=== PATIENT | female | born 1965 | race Caucasian/White ===

== ENCOUNTER → 2018-01-11 07:51 | Outpatient (CLI) | payer BC, SELFPAY | PROVIDERS: Family Provider Family Medicine; PCP Family Medicine | DX: I35.1 Nonrheumatic aortic (valve) insufficiency (principal) | CPT/HCPCS: 93306 ==

== ENCOUNTER → 2018-03-31 08:34 | Outpatient (CLI) | payer BC, SELFPAY ==
[2018-03-31 12:03] LABS: Absolute Lymphocyte Count 3.02 X10^3/ul (0.83-4.51); Absolute Neutrophil Count 2.5 X10^3/uL (2.0-7.7); Basophil# 0.03 X10^3/uL; Basophil% 0.5 % (0-1); Eosinophil# 0.06 X10^3/uL; Hematocrit 37.9 % (37-47); Hemoglobin 12.3 g/dl (12.0-15.0); Lymphocyte # 3.02 X10^3/ul (4.0); Lymphocyte % 50.2 % (19-41); Mean Corp Hgb Conc 32.5 g/gl (32-36); Mean Corpuscular Hgb 29.4 pg (27.0-32.0); Mean Corpuscular Volume 90.7 fL (81-99); Monocyte# 0.45 X10^3/uL; Monocyte% 7.5 % (0-10); Neutrophil # 2.45 X10^3/uL (2.7-7.7); Neutrophil % 40.8 % (47-70); Platelet Count 309 K/mm3 (150-450); RBC Distribution Width CV 13.3 % (11.6-14.6); RBC Distribution Width SD 43.9 fl (35.1-43.9); Red Blood Count 4.18 M/mm3 (4.2-5.4)
[2018-03-31 12:04] LABS: POSITIVE COUNT NO; POSITIVE DIFFERENTIAL NO; POSITIVE MORPHOLOGY NO
[2018-03-31 12:47] LABS: Vitamin B12 337 pg/mL (211-911); Vitamin D,25 Hydroxy 65.7 ng/mL (29.95-100.01)
[2018-03-31 13:04] LABS: ALB/GLOB Ratio 1.1 RATIO (0.9-2.4); AST(SGOT) 18 U/L (15-37); Alanine Aminotransfer ALT/SGPT 30 U/L (13-56); Albumin, Serum 3.8 g/dL (3.2-5.0); Alkaline Phosphatase 59 U/L (45-117); Anion Gap 9 (5-15); BUN 13 mg/dL (7-18); BUN/Creat Ratio 16.2 RATIO (10-20); Calcium,Total 8.8 mg/dL (8.5-10.1); Chloride 106 mmol/L (98-107); EST Glomerular Filtration Rate 80 mL/min (>60); Est Glom Filt Rate - Afr Amer 97 mL/min (>60); Globulin 3.5 g/dL (2.2-4.2); Glucose 89 mg/dL (74-106); Protein, Total 7.3 g/dL (6.4-8.2); Sodium Level 142 mmol/L (136-145); T4 Free Direct 1.05 ng/dL (0.76-1.46); Thyroid Stim Hormone (TSH) 0.84 uIU/mL (0.358-3.74)
== END ==
PROVIDERS: Family Provider Family Medicine; PCP Family Medicine; Visit Provider Family Medicine
DX: R73.01 Impaired fasting glucose (principal); E55.9 Vitamin D deficiency, unspecified; E53.8 Deficiency of other specified B group vitamins; D35.2 Benign neoplasm of pituitary gland; E78.5 Hyperlipidemia, unspecified
CPT/HCPCS: 36415; 80053; 82306; 82607; 84439; 84443; 85025

== ENCOUNTER → 2018-08-19 08:15 | Outpatient (CLI) | payer BC, SELFPAY ==
[2018-08-19 12:04] LABS: Absolute Neutrophil Count 2.2 X10^3/uL (2.0-7.7); Basophil# 0.02 X10^3/uL; Basophil% 0.3 % (0-1); Eosinophil# 0.13 X10^3/uL; Eosinophils% 2.2 % (0-5); Hematocrit 37.9 % (37-47); Hemoglobin 12.3 g/dl (12.0-15.0); Lymphocyte % 50.8 % (19-41); Mean Corp Hgb Conc 32.5 g/gl (32-36); Mean Corpuscular Hgb 29.1 pg (27.0-32.0); Mean Corpuscular Volume 89.6 fL (81-99); Mean Platelet Vol. 10.3 fl (6.2-12.0); Monocyte% 8.5 % (0-10); Neutrophil # 2.24 X10^3/uL (2.7-7.7); Platelet Count 315 K/mm3 (150-450); RBC Distribution Width CV 13.2 % (11.6-14.6); RBC Distribution Width SD 42.5 fl (35.1-43.9); Red Blood Count 4.23 M/mm3 (4.2-5.4); White Blood Count 5.9 K/mm3 (4.4-11.0)
[2018-08-19 12:07] LABS: POSITIVE COUNT NO; POSITIVE DIFFERENTIAL NO; POSITIVE MORPHOLOGY NO
[2018-08-19 12:27] LABS: ALB/GLOB Ratio 1.3 RATIO (0.9-2.4); AST(SGOT) 26 U/L (15-37); Alanine Aminotransfer ALT/SGPT 51 U/L (13-56); Albumin, Serum 3.9 g/dL (3.2-5.0); Alkaline Phosphatase 56 U/L (45-117); Anion Gap 6 (5-15); BUN 12 mg/dL (7-18); BUN/Creat Ratio 16.6 RATIO (10-20); Calcium,Total 8.7 mg/dL (8.5-10.1); Chloride 109 mmol/L (98-107); Cholesterol 182 mg/dL (200); Creatinine, Serum 0.72 mg/dL (0.55-1.02); EST Glomerular Filtration Rate 90 mL/min (>60); Est Glom Filt Rate - Afr Amer 109 mL/min (>60); Globulin 3.1 g/dL (2.2-4.2); Glucose 95 mg/dL (74-106); High Density Lipoprotein 57 mg/dL; Potassium 3.8 mmol/L (3.5-5.1); Sodium Level 142 mmol/L (136-145); Thyroid Stim Hormone (TSH) 0.03 uIU/mL (0.358-3.74); Triglycerides 214 mg/dL; Very Low Density Lipoprotein 43 mg/dL (5-40)
[2018-08-19 13:15] LABS: Vitamin B12 821 pg/mL (211-911); Vitamin D,25 Hydroxy 36.3 ng/mL (29.95-100.01)
== END ==
LOC: LAB.FUTURE 08:17 → BFHLAB 04-22 15:20
PROVIDERS: Family Provider Family Medicine; PCP Family Medicine; Visit Provider Family Medicine
DX: E03.9 Hypothyroidism, unspecified (principal); E55.9 Vitamin D deficiency, unspecified; I10 Essential (primary) hypertension
CPT/HCPCS: 36415; 80053; 80061; 82306; 82607; 84439; 84443; 85025

== ENCOUNTER → 2018-10-01 11:42 | Outpatient (CLI) | payer BC, SELFPAY ==
[2018-10-04 12:58] LABS: Rubeola IgG Ab < 25.0 AU/mL (Immune >29.9)
== END ==
LOC: LAB.FUTURE 11:44 → BFHLAB 04-22 15:19
PROVIDERS: Family Provider Family Medicine; PCP Family Medicine; Visit Provider Family Medicine
DX: E03.9 Hypothyroidism, unspecified (principal); Z11.59 Encounter for screening for other viral diseases
CPT/HCPCS: 36415; 84443; 86765

== ENCOUNTER → 2018-11-17 | Outpatient (CLI) | payer BC, SELFPAY ==
--- NOTE | 2018-11-17 15:24 | BI_ITS ---
MAMMOGRAPHY - BILATERAL SCREENING REASON FOR EXAM: Female, 53 years old. Routine annual screening examination. PERTINENT HISTORY: Non-contributory. TECHNIQUE: Digital bilateral breast thom (3D mammographic acquisition) in the CC and MLO projections. 2-D mediolateral oblique (MLO) and craniocaudad (CC) views of both breasts were obtained. CAD: Full Field Digital Mammography with Computer Added Detection was performed. COMPARISON: Comparison is made with prior study dated November 21, 2016 and September 27, 2014. FINDINGS: Breast Composition: There are scattered areas of fibroglandular density. There are no dominant masses or suspicious calcifications. Stable small bilateral axillary lymph nodes. No other significant abnormalities are identified. There has been no significant change since the prior study. BI/SCREEN MAMM (CAD) W/THOM BILAT IMPRESSION: Stable bilateral screening mammogram. Yearly follow-up mammogram recommended. (A) ASSESSMENT CATEGORY: BIRADS Category 1: Negative. A letter regarding these results will be sent to the patient by the facility within 30 days. Approximately 10% of breast cancers are not detected by mammography. A normal mammogram should not delay biopsy of a clinically suspicious abnormality. [id number] Electronically Signed: Eder Stovall, at 8:38 EDT , Service support ,
== END | disposition home or self-care (01) ==
LOC: OPBI 15:19
PROVIDERS: Family Provider Family Medicine; PCP Family Medicine; Referring Provider Family Medicine; Visit Provider Family Medicine
DX: Z12.31 Encounter for screening mammogram for malignant neoplasm of breast (principal)
CPT/HCPCS: 77063; 77067

== ENCOUNTER → 2019-04-22 15:09 | Outpatient (CLI) | payer BC, SELFPAY ==
[2019-04-22 17:19] LABS: Absolute Lymphocyte Count 3.09 X10^3/uL (0.83-4.51); Absolute Neutrophil Count 2.4 X10^3/uL (2.0-7.7); Basophil# 0.04 X10^3/uL; Basophil% 0.7 % (0-1); Eosinophils% 1.6 % (0-5); Hematocrit 37.1 % (37-47); Hemoglobin 11.9 g/dL (12.0-15.0); Lymphocyte # 3.09 X10^3/ul (4.0); Lymphocyte % 50.6 % (19-41); Mean Corp Hgb Conc 32.1 g/dL (32-36); Mean Corpuscular Hgb 28.7 pg (27.0-32.0); Mean Corpuscular Volume 89.4 fL (81-99); Mean Platelet Vol. 10.4 fl (6.2-12.0); Monocyte# 0.52 X10^3/uL; Monocyte% 8.5 % (0-10); NRBC Flagged by Analyzer 0 % (0-5); Neutrophil # 2.35 X10^3/uL (2.7-7.7); Neutrophil % 38.4 % (47-70); Platelet Count 337 K/mm3 (150-450); RBC Distribution Width CV 13.2 % (11.6-14.6); RBC Distribution Width SD 43.3 fl (35.1-43.9); Red Blood Count 4.15 M/mm3 (4.2-5.4); White Blood Count 6.1 K/mm3 (4.4-11.0)
[2019-04-22 17:43] LABS: Vitamin B12 389 pg/mL (211-911); Vitamin D,25 Hydroxy 23.6 ng/mL (29.95-100.01)
[2019-04-22 17:49] LABS: ALB/GLOB Ratio 1.3 RATIO (0.9-2.4); AST(SGOT) 29 U/L (15-37); Alanine Aminotransfer ALT/SGPT 54 U/L (13-56); Albumin, Serum 4.3 g/dL (3.2-5.0); Alkaline Phosphatase 60 U/L (45-117); Anion Gap 7 (5-15); BUN 12 mg/dL (7-18); BUN/Creat Ratio 15.4 RATIO (10-20); Chloride 107 mmol/L (98-107); Creatinine, Serum 0.78 mg/dL (0.55-1.02); EST Glomerular Filtration Rate 83 mL/min (>60); Est Glom Filt Rate - Afr Amer 100 mL/min (>60); Globulin 3.3 g/dL (2.2-4.2); Glucose 91 mg/dL (74-106); Potassium 3.7 mmol/L (3.5-5.1); Protein, Total 7.6 g/dL (6.4-8.2); Sodium Level 141 mmol/L (136-145); T4 Free Direct 1.25 ng/dL (0.76-1.46); Thyroid Stim Hormone (TSH) 0.07 uIU/mL (0.358-3.74)
== END ==
LOC: LAB.FUTURE 15:10 → BFHLAB 15:19
PROVIDERS: Family Provider Family Medicine; PCP Family Medicine; Visit Provider Family Medicine
DX: E55.9 Vitamin D deficiency, unspecified (principal); E03.9 Hypothyroidism, unspecified; E53.8 Deficiency of other specified B group vitamins; E78.5 Hyperlipidemia, unspecified
CPT/HCPCS: 36415; 80053; 82306; 82607; 84439; 84443; 85025

== ENCOUNTER → 2019-06-20 10:22 | Outpatient (CLI) | payer OTHER, SELFPAY ==
[2019-06-20 12:56] LABS: Thyroid Stim Hormone (TSH) 0.09 uIU/mL (0.358-3.74)
== END ==
PROVIDERS: Family Provider Family Medicine; PCP Family Medicine; Visit Provider Family Medicine
DX: E03.9 Hypothyroidism, unspecified (principal); E55.9 Vitamin D deficiency, unspecified
CPT/HCPCS: 36415; 82306; 84443

== ENCOUNTER → 2019-11-01 10:36 | Outpatient (CLI) | payer OTHER, SELFPAY ==
[2019-11-01 13:02] LABS: T4 Free Direct 0.88 ng/dL (0.76-1.46); Thyroid Stim Hormone (TSH) 0.63 uIU/mL (0.358-3.74)
== END ==
PROVIDERS: PCP Family Medicine; Visit Provider Family Medicine
DX: E03.9 Hypothyroidism, unspecified (principal)
CPT/HCPCS: 84439; 84443

== ENCOUNTER → 2020-09-24 07:44 | Outpatient (CLI) | payer OTHER, SELFPAY ==
--- NOTE | 2020-09-24 07:47 | BI_ITS ---
MAMMOGRAPHY - BILATERAL SCREENING REASON FOR EXAM: Female, 55 years old. Routine annual screening examination. PERTINENT HISTORY: Non-contributory. TECHNIQUE: Digital bilateral breast thom (3D mammographic acquisition) in the CC and MLO projections. 2-D mediolateral oblique (MLO) and craniocaudad (CC) views of both breasts were obtained. CAD: Full Field Digital Mammography with Computer Added Detection was performed. COMPARISON: Comparison is made with prior examination dated 11/17/2018 and 06/23/2016. FINDINGS: Breast Composition: There are scattered areas of fibroglandular density. Possible 5 mm nodular density in the deep central medial portion of the left breast. Correlation with ultrasound is recommended. Stable small benign appearing bilateral axillary lymph nodes. No other significant abnormalities are identified. BI/SCRN MAMM (CAD)W/THOM BILAT IMPRESSION: Findings suggestive of a 5 mm nodular density in the deep central medial aspect of the left breast. Correlation with ultrasound is recommended. ASSESSMENT CATEGORY: BIRADS Category 0: Incomplete. Need additional imaging evaluation. A letter regarding these results will be sent to the patient by the facility within 30 days. Approximately 10% of breast cancers are not detected by mammography. A normal mammogram should not delay biopsy of a clinically suspicious abnormality. [id number] Electronically Signed: Eder Stovall MD at 9:16 EDT , Service support ,
== END ==
PROVIDERS: PCP Family Medicine; Referring Provider Family Medicine; Visit Provider Family Medicine
DX: Z12.31 Encounter for screening mammogram for malignant neoplasm of breast (principal)
CPT/HCPCS: 77063; 77067

== ENCOUNTER → 2020-09-26 07:43 | Outpatient (CLI) | payer OTHER, SELFPAY ==
--- NOTE | 2020-09-26 07:52 | US_ITS ---
STUDY: ULTRASOUND BREAST - LEFT REASON FOR EXAM: Female, 55 years old. Abnormal screening mammogram. TECHNIQUE: Axial and longitudinal images of the LEFT breast were performed with a high resolution ultrasound transducer. # OF IMAGES: 13 COMPARISON: Comparison is made with prior mammogram dated 09/24/2020. FINDINGS: LEFT Breast: The mammographic abnormality corresponds to a 5 mm x 6 mm x 2 mm hypoechoic density with a central echogenic hilum. This is suggestive of a small lymph node. US/Breast Limited Unilateral IMPRESSION: Findings suggestive of a small benign-appearing lymph node corresponding to the mammographic abnormality. ASSESSMENT CATEGORY: BIRADS Category 2: Benign. A letter regarding these results will be sent to the patient by the facility within 30 days. Electronically Signed: Eder Stovall MD at 12:16 EDT , Service support ,
== END ==
PROVIDERS: PCP Family Medicine; Referring Provider Family Medicine; Visit Provider Family Medicine
DX: R92.2 Inconclusive mammogram (principal)
CPT/HCPCS: 76642

== ENCOUNTER → 2022-01-13 | Outpatient (CLI) | payer OTHER, SELFPAY ==
[2022-01-13 12:06] LABS: Absolute Lymphocyte Count 3.27 X10^3/uL (0.83-4.51); Absolute Neutrophil Count 2.4 X10^3/uL (2.0-7.7); Basophil# 0.05 X10^3/uL; Basophil% 0.8 % (0-1); Eosinophil# 0.12 X10^3/uL; Eosinophils% 1.9 % (0-5); Hematocrit 37.4 % (37-47); Hemoglobin 12.2 g/dL (12.0-15.0); Lymphocyte # 3.27 X10^3/ul (0.83-4.51); Lymphocyte % 51.6 % (19-41); Mean Corp Hgb Conc 32.6 g/dL (32-36); Mean Corpuscular Hgb 28.9 pg (27.0-32.0); Mean Corpuscular Volume 88.6 fL (81-99); Mean Platelet Vol. 10.4 fl (6.2-12.0); Monocyte# 0.49 X10^3/uL; Monocyte% 7.7 % (0-10); NRBC Flagged by Analyzer 0 % (0-5); Neutrophil # 2.39 X10^3/uL (2.7-7.7); Neutrophil % 37.7 % (47-70); Platelet Count 313 K/mm3 (150-450); RBC Distribution Width CV 13.4 % (11.6-14.6); RBC Distribution Width SD 43.9 fl (35.1-43.9); Red Blood Count 4.22 M/mm3 (4.2-5.4); White Blood Count 6.3 K/mm3 (4.4-11.0)
[2022-01-13 12:31] LABS: Vitamin D,25 Hydroxy 54.6 ng/mL
[2022-01-13 12:32] LABS: ALB/GLOB Ratio 1.3 RATIO (0.9-2.4); AST(SGOT) 35 U/L (15-37); Alanine Aminotransfer ALT/SGPT 59 U/L (13-56); Albumin, Serum 4.2 g/dL (3.2-5.0); Alkaline Phosphatase 60 U/L (45-117); Anion Gap 7 (5-15); BUN 14 mg/dL (7-18); BUN/Creat Ratio 18.9 RATIO (10-20); Calcium,Total 9.4 mg/dL (8.5-10.1); Chloride 110 mmol/L (98-107); Creatinine, Serum 0.74 mg/dL (0.55-1.02); EST Glomerular Filtration Rate 87 mL/min (>60); Est Glom Filt Rate - Afr Amer 105 mL/min (>60); Globulin 3.3 g/dL (2.2-4.2); Glucose 107 mg/dL (74-106); Potassium 3.5 mmol/L (3.5-5.1); Protein, Total 7.5 g/dL (6.4-8.2); Sodium Level 143 mmol/L (136-145); T4 Free Direct 0.77 ng/dL (0.76-1.46); Thyroid Stim Hormone (TSH) 1.52 uIU/mL (0.358-3.74)
== END | disposition home or self-care (01) ==
LOC: MTLAB 10:32
PROVIDERS: PCP Family Medicine; Referring Provider Family Medicine; Visit Provider Family Medicine
DX: E78.5 Hyperlipidemia, unspecified (principal); R73.01 Impaired fasting glucose; E03.9 Hypothyroidism, unspecified; E55.9 Vitamin D deficiency, unspecified
CPT/HCPCS: 36415; 80053; 82306; 84439; 84443; 85025

== ENCOUNTER → 2022-03-12 | Outpatient (CLI) | payer OTHER, SELFPAY ==
--- NOTE | 2022-03-12 07:59 | BI_ITS ---
MAMMOGRAPHY - BILATERAL SCREENING REASON FOR EXAM: Female, 56 years old. Routine annual screening examination. PERTINENT HISTORY: Non-contributory. TECHNIQUE: Digital bilateral breast thom (3D mammographic acquisition) in the CC and MLO projections. 2-D mediolateral oblique (MLO) and craniocaudad (CC) views of both breasts were obtained. CAD: Full Field Digital Mammography with Computer Added Detection was performed. COMPARISON: Comparison is made with prior examination dated 09/24/2020 and 11/17/2018. FINDINGS: Breast Composition: There are scattered areas of fibroglandular density. There are no dominant masses or suspicious calcifications. Stable small benign-appearing bilateral axillary lymph nodes. No other significant abnormalities are identified. There has been no significant change since the prior study. BI/SCRN MAMM (CAD)W/THOM BILAT IMPRESSION: Stable bilateral screening mammogram. Yearly follow-up mammogram recommended. (A) ASSESSMENT CATEGORY: BIRADS Category 1: Negative. A letter regarding these results will be sent to the patient by the facility within 30 days. Approximately 10% of breast cancers are not detected by mammography. A normal mammogram should not delay biopsy of a clinically suspicious abnormality. [id number] Electronically Signed: Eder Stovall MD at 9:06 EDT ,
== END | disposition home or self-care (01) ==
LOC: OPBI 07:57
PROVIDERS: PCP Family Medicine; Visit Provider Family Medicine
DX: Z12.31 Encounter for screening mammogram for malignant neoplasm of breast (principal)
CPT/HCPCS: 77063; 77067

== ENCOUNTER → 2023-03-16 | Outpatient (CLI) | payer BC, SELFPAY ==
--- NOTE | 2023-03-16 07:48 | BI_ITS ---
MAMMOGRAPHY - BILATERAL SCREENING 3-D TOMOSYNTHESIS REASON FOR EXAM: Female, 57 years old. SCREENING PERTINENT HISTORY: No significant family history. TECHNIQUE: 2-D mammograms and 3-D Tomosynthesis of the breast (s) were performed. CAD was performed. COMPARISON: 03/12/2022 FINDINGS: The breast composition is composed of scattered fibroglandular density. Scattered benign calcifications are seen. No dense spiculated masses or suspicious microcalcifications are identified. No architectural distortion is identified. There is no skin thickening or retraction. There has been no significant change since the prior study. BI/SCRN MAMM (CAD)W/THOM BILAT IMPRESSION: No mammographic signs of malignancy. Routine yearly mammograms recommended. ASSESSMENT CATEGORY: BIRADS Category 1: Negative. A letter regarding these results will be sent to the patient by the facility within 30 days. FOLLOW UP RECOMMENDATION: Yearly follow up mammogram recommended. (A) Approximately 10% of breast cancers are not detected by mammography. A normal mammogram should not delay biopsy of a clinically suspicious abnormality. Electronically Signed: Ranjan Negron MD at 10:29 EDT ,
== END | disposition home or self-care (01) ==
LOC: OPBI 07:47
PROVIDERS: PCP Family Medicine; Referring Provider Nurse Practitioner Family; Visit Provider Nurse Practitioner Family
DX: Z12.31 Encounter for screening mammogram for malignant neoplasm of breast (principal)
CPT/HCPCS: 77063; 77067

== ENCOUNTER → 2023-04-13 | Outpatient (CLI) | payer BC, SELFPAY ==
[2023-04-13 12:19] LABS: Basophil# 0.04 X10^3/uL; Basophil% 0.5 % (0-1); Eosinophil# 0.14 X10^3/uL; Eosinophils% 1.7 % (0-5); Hematocrit 38.9 % (37-47); Hemoglobin 12.5 g/dL (12.0-15.0); Lymphocyte % 40.7 % (19-41); Mean Corp Hgb Conc 32.1 g/dL (32-36); Mean Corpuscular Hgb 28.7 pg (27.0-32.0); Mean Corpuscular Volume 89.2 fL (81-99); Monocyte# 0.62 X10^3/uL; Monocyte% 7.7 % (0-10); NRBC Flagged by Analyzer 0 % (0-5); Neutrophil # 3.98 X10^3/uL (2.7-7.7); Neutrophil % 49.2 % (47-70); Platelet Count 287 K/mm3 (150-450); RBC Distribution Width CV 13.4 % (11.6-14.6); RBC Distribution Width SD 44.1 fl (35.1-43.9); Red Blood Count 4.36 M/mm3 (4.2-5.4); White Blood Count 8.1 K/mm3 (4.4-11.0)
[2023-04-13 12:34] LABS: Vitamin B12 311 pg/mL (211-911); Vitamin D,25 Hydroxy 80.5 ng/mL
[2023-04-13 12:57] LABS: ALB/GLOB Ratio 1.2 RATIO (0.9-2.4); AST(SGOT) 34 U/L (15-37); Alanine Aminotransfer ALT/SGPT 70 U/L (13-56); Alkaline Phosphatase 69 U/L (45-117); Anion Gap 8 (5-15); BUN 12 mg/dL (7-18); BUN/Creat Ratio 15.2 RATIO (10-20); Chloride 108 mmol/L (98-107); Creatinine, Serum 0.79 mg/dL (0.55-1.02); EST Glomerular Filtration Rate 80 mL/min (>60); Est Glom Filt Rate - Afr Amer 97 mL/min (>60); Globulin 3.2 g/dL (2.2-4.2); Glucose 118 mg/dL (74-106); Potassium 3.5 mmol/L (3.5-5.1); Protein, Total 7.2 g/dL (6.4-8.2); Sodium Level 142 mmol/L (136-145); T4 Free Direct 0.87 ng/dL (0.76-1.46); Thyroid Stim Hormone (TSH) 2.84 uIU/mL (0.358-3.74)
== END | disposition home or self-care (01) ==
LOC: BFHLAB 08:53
PROVIDERS: PCP Nurse Practitioner Family; Referring Provider Nurse Practitioner Family; Visit Provider Nurse Practitioner Family
DX: E11.9 Type 2 diabetes mellitus without complications (principal); E03.9 Hypothyroidism, unspecified; I10 Essential (primary) hypertension; E55.9 Vitamin D deficiency, unspecified; E53.8 Deficiency of other specified B group vitamins
CPT/HCPCS: 36415; 80053; 82306; 82607; 84439; 84443; 85025

== ENCOUNTER → 2023-09-02 | Outpatient (CLI) | payer BC, SELFPAY ==
[2023-09-02 15:22] LABS: Absolute Lymphocyte Count 1.39 X10^3/uL (0.83-4.51); Absolute Neutrophil Count 10.9 X10^3/uL (2.0-7.7); Basophil# 0.03 X10^3/uL; Basophil% 0.2 % (0-1); Eosinophil# 0.01 X10^3/uL; Eosinophils% 0.1 % (0-5); Hematocrit 33.4 % (37-47); Hemoglobin 11.8 g/dL (12.0-15.0); Lymphocyte # 1.39 X10^3/ul (0.83-4.51); Lymphocyte % 10.8 % (19-41); Mean Corp Hgb Conc 35.3 g/dL (32-36); Mean Corpuscular Hgb 32.4 pg (27.0-32.0); Mean Corpuscular Volume 91.8 fL (81-99); Mean Platelet Vol. 10.6 fl (6.2-12.0); Monocyte# 0.54 X10^3/uL; Monocyte% 4.2 % (0-10); NRBC Flagged by Analyzer 0 % (0-5); Neutrophil # 10.89 X10^3/uL (2.7-7.7); Neutrophil % 84.3 % (47-70); Platelet Count 260 K/mm3 (150-450); RBC Distribution Width CV 14.4 % (11.6-14.6); RBC Distribution Width SD 46.6 fl (35.1-43.9); Red Blood Count 3.64 M/mm3 (4.2-5.4); White Blood Count 12.9 K/mm3 (4.4-11.0)
[2023-09-07 17:07] LABS: Lyme IgG P18 Ab Absent (.); Lyme IgG P23 Ab Absent (.); Lyme IgG P28 Ab Absent (.); Lyme IgG P30 Ab Absent (.); Lyme IgG P39 Ab Absent (.); Lyme IgG P41 Ab Absent (.); Lyme IgG P45 Ab Absent (.); Lyme IgG P58 Ab Absent (.); Lyme IgG P66 Ab Absent (.); Lyme IgG P93 Ab Absent (.); Lyme IgG WB Interpretation Negative (.); Lyme IgM P23 Ab Absent (.); Lyme IgM P39 Ab Absent (.); Lyme IgM P41 Ab Absent (.); Lyme IgM WB Interpretation Negative (.)
== END | disposition home or self-care (01) ==
LOC: BFHLAB 11:40
PROVIDERS: PCP Nurse Practitioner Family; Visit Provider Nurse Practitioner Family
DX: J06.9 Acute upper respiratory infection, unspecified (principal); Z20.828 Contact with and (suspected) exposure to other viral communicable diseases
CPT/HCPCS: 36415; 85025; 86617; 87633

== ENCOUNTER → 2023-10-12 | Outpatient (CLI) | payer BC, SELFPAY ==
[2023-10-12 12:12] LABS: Absolute Lymphocyte Count 3.07 X10^3/uL (0.83-4.51); Absolute Neutrophil Count 2.3 X10^3/uL (2.0-7.7); Basophil# 0.05 X10^3/uL; Basophil% 0.8 % (0-1); Eosinophil# 0.09 X10^3/uL; Eosinophils% 1.5 % (0-5); Hematocrit 37.1 % (37-47); Hemoglobin 11.9 g/dL (12.0-15.0); Lymphocyte # 3.07 X10^3/ul (0.83-4.51); Lymphocyte % 51.8 % (19-41); Mean Corp Hgb Conc 32.1 g/dL (32-36); Mean Corpuscular Volume 90.3 fL (81-99); Mean Platelet Vol. 10.9 fl (6.2-12.0); Monocyte# 0.46 X10^3/uL; Monocyte% 7.8 % (0-10); NRBC Flagged by Analyzer 0 % (0-5); Neutrophil # 2.25 X10^3/uL (2.7-7.7); Neutrophil % 37.9 % (47-70); Platelet Count 283 K/mm3 (150-450); RBC Distribution Width SD 46.3 fl (35.1-43.9); Red Blood Count 4.11 M/mm3 (4.2-5.4); White Blood Count 5.9 K/mm3 (4.4-11.0)
[2023-10-12 12:40] LABS: ALB/GLOB Ratio 1.2 RATIO (0.9-2.4); AST(SGOT) 54 U/L (15-37); Alanine Aminotransfer ALT/SGPT 75 U/L (13-56); Albumin, Serum 3.7 g/dL (3.2-5.0); Alkaline Phosphatase 55 U/L (45-117); Anion Gap 2 (5-15); BUN 10 mg/dL (7-18); BUN/Creat Ratio 13.8 RATIO (10-20); Calcium,Total 8.7 mg/dL (8.5-10.1); Chloride 110 mmol/L (98-107); Cholesterol 122 mg/dL (200); Creatinine, Serum 0.73 mg/dL (0.55-1.02); EST Glomerular Filtration Rate 88 mL/min (>60); Est Glom Filt Rate - Afr Amer 107 mL/min (>60); Glucose 101 mg/dL (74-106); High Density Lipoprotein 58 mg/dL; Potassium 3.6 mmol/L (3.5-5.1); Protein, Total 6.7 g/dL (6.4-8.2); Sodium Level 141 mmol/L (136-145); T4 Free Direct 0.76 ng/dL (0.76-1.46); Thyroid Stim Hormone (TSH) 2.13 uIU/mL (0.358-3.74); Triglycerides 117 mg/dL; Very Low Density Lipoprotein 23 mg/dL (5-40)
[2023-10-12 17:36] LABS: Vitamin B12 582 pg/mL (211-911); Vitamin D,25 Hydroxy 72.2 ng/mL
== END | disposition home or self-care (01) ==
LOC: BFHLAB 08:52
PROVIDERS: PCP Nurse Practitioner Family; Referring Provider Nurse Practitioner Family; Visit Provider Nurse Practitioner Family
DX: E03.9 Hypothyroidism, unspecified (principal); E55.9 Vitamin D deficiency, unspecified; E53.8 Deficiency of other specified B group vitamins; E78.5 Hyperlipidemia, unspecified; I10 Essential (primary) hypertension
CPT/HCPCS: 36415; 80053; 80061; 82306; 82607; 84439; 84443; 85025

== ENCOUNTER → 2024-04-18 | Outpatient (CLI) | payer BC, SELFPAY ==
[2024-04-18 12:51] LABS: ALB/GLOB Ratio 1.2 RATIO (0.9-2.4); AST(SGOT) 33 U/L (15-37); Alanine Aminotransfer ALT/SGPT 57 U/L (13-56); Alkaline Phosphatase 46 U/L (45-117); Anion Gap 3 (5-15); BUN 9 mg/dL (7-18); BUN/Creat Ratio 14.1 RATIO (10-20); Calcium,Total 8.6 mg/dL (8.5-10.1); Chloride 108 mmol/L (98-107); Cholesterol 168 mg/dL (200); Creatinine, Serum 0.64 mg/dL (0.55-1.02); EST Glomerular Filtration Rate 102 mL/min (>60); Est Glom Filt Rate - Afr Amer 124 mL/min (>60); Globulin 3.2 g/dL (2.2-4.2); Glucose 110 mg/dL (74-106); High Density Lipoprotein 60 mg/dL; Potassium 3.6 mmol/L (3.5-5.1); Protein, Total 7.2 g/dL (6.4-8.2); Sodium Level 139 mmol/L (136-145); T4 Free Direct 0.62 ng/dL (0.76-1.46); Triglycerides 178 mg/dL; Very Low Density Lipoprotein 36 mg/dL (5-40)
[2024-04-18 12:54] LABS: T3 Total - Triiodothyronine 1.13 ng/mL (0.6-1.81); Vitamin D,25 Hydroxy 51.4 ng/mL
[2024-04-18 12:55] LABS: Absolute Lymphocyte Count 2.54 X10^3/uL (0.83-4.51); Absolute Neutrophil Count 2.7 X10^3/uL (2.0-7.7); Basophil# 0.04 X10^3/uL; Basophil% 0.7 % (0-1); Eosinophil# 0.16 X10^3/uL; Eosinophils% 2.7 % (0-5); Hemoglobin 13.4 g/dL (12.0-15.0); Lymphocyte # 2.54 X10^3/ul (0.83-4.51); Lymphocyte % 42.9 % (19-41); Mean Corp Hgb Conc 32.7 g/dL (32-36); Mean Corpuscular Hgb 29.5 pg (27.0-32.0); Mean Corpuscular Volume 90.3 fL (81-99); Mean Platelet Vol. 10.4 fl (6.2-12.0); Monocyte# 0.45 X10^3/uL; Monocyte% 7.6 % (0-10); NRBC Flagged by Analyzer 0 % (0-5); Neutrophil # 2.71 X10^3/uL (2.7-7.7); Neutrophil % 45.8 % (47-70); Platelet Count 294 K/mm3 (150-450); RBC Distribution Width CV 13.3 % (11.6-14.6); RBC Distribution Width SD 43.8 fl (35.1-43.9); Red Blood Count 4.54 M/mm3 (4.2-5.4); White Blood Count 5.9 K/mm3 (4.4-11.0)
[2024-04-19 08:42] LABS: Vitamin B12 421 pg/mL (211-911)
== END | disposition home or self-care (01) ==
LOC: BFHLAB 09:31
PROVIDERS: PCP Nurse Practitioner Family; Referring Provider Nurse Practitioner Family; Visit Provider Nurse Practitioner Family
DX: E03.9 Hypothyroidism, unspecified (principal); E55.9 Vitamin D deficiency, unspecified; E53.8 Deficiency of other specified B group vitamins; E78.5 Hyperlipidemia, unspecified; I10 Essential (primary) hypertension
CPT/HCPCS: 36415; 80053; 80061; 82306; 82607; 84439; 84443; 84480; 85025

== ENCOUNTER → 2024-04-27 | Outpatient (CLI) | payer BC, SELFPAY ==
--- NOTE | 2024-04-27 07:25 | BI_ITS ---
MAMMOGRAPHY - BILATERAL SCREENING 3-D TOMOSYNTHESIS REASON FOR EXAM: Female, 58 years old. Routine screening PERTINENT HISTORY: No significant family history. TECHNIQUE: 2-D mammograms and 3-D Tomosynthesis of the breast (s) were performed. CAD was performed. COMPARISON: 03/12/2022 FINDINGS: The breast composition is composed of scattered fibroglandular density. Scattered benign calcifications are seen. No dense spiculated masses or suspicious microcalcifications are identified. No architectural distortion is identified. There is no skin thickening or retraction. There has been no significant change since the prior study. BI/SCRN MAMM (CAD)W/THOM BILAT IMPRESSION: No mammographic signs of malignancy. Routine yearly mammograms recommended. ASSESSMENT CATEGORY: BIRADS Category 1: Negative. A letter regarding these results will be sent to the patient by the facility within 30 days. FOLLOW UP RECOMMENDATION: Yearly follow up mammogram recommended. (A) Approximately 10% of breast cancers are not detected by mammography. A normal mammogram should not delay biopsy of a clinically suspicious abnormality. Electronically Signed: Dk Ocampo MD at 9:18 EST ,
== END | disposition home or self-care (01) ==
LOC: OPBI 07:24
PROVIDERS: PCP Nurse Practitioner Family; Referring Provider Nurse Practitioner Family; Visit Provider Nurse Practitioner Family
DX: Z12.31 Encounter for screening mammogram for malignant neoplasm of breast (principal)
CPT/HCPCS: 77063; 77067

== ENCOUNTER → 2025-04-24 | Outpatient (CLI) | payer BC, SELFPAY ==
[2025-04-24 12:11] LABS: Hematocrit 40.0 % (37-47); Hemoglobin 13.1 g/dL (12.0-15.0); Immature Granulocytes Count 0.010 X10^3/uL (0.0-0.0); Mean Corp Hgb Conc 32.8 g/dL (32-36); Mean Corpuscular Volume 90.5 fL (81-99); Mean Platelet Vol. 10.0 fl (6.2-12.0); NRBC Flagged by Analyzer 0 % (0-5); Platelet Count 301 K/mm3 (150-450); RBC Distribution Width CV 13.2 % (11.6-14.6); RBC Distribution Width SD 44.1 fl (35.1-43.9); Red Blood Count 4.42 M/mm3 (4.2-5.4); White Blood Count 6.7 K/mm3 (4.4-11.0)
[2025-04-24 13:18] LABS: AST(SGOT) 22 U/L (<=31); Alanine Aminotransfer ALT/SGPT 31 U/L (<=34); Albumin, Serum 4.6 g/dL (3.5-5.0); Alkaline Phosphatase 38 U/L (35-104); Anion Gap 10 (5-15); BUN 14 mg/dL (4-19); BUN/Creat Ratio 18.5 RATIO (10-20); Calcium,Total 9.6 mg/dL (7.6-11.0); Carbon Dioxide 25.3 mmol/L (21.0-32.0); Chloride 106 mmol/L (98-108); Cholesterol 176 mg/dL (<=200); Globulin 2.6 g/dL (2.2-4.2); Glucose 97 mg/dL (70-99); Low Density Lipoprotein Calc. 102 mg/dL; Potassium 4.1 mmol/L (3.3-5.1); Triglycerides 109 mg/dL; Very Low Density Lipoprotein 22 mg/dL (5-40); cholesterol:hdl ratio screen 3.21
[2025-04-24 13:47] LABS: T3 Total - Triiodothyronine 0.75 ng/mL (0.80-2.00); Vitamin B12 3706 pg/mL (180-914); Vitamin D,25 Hydroxy 81.3 ng/mL (30-100)
== END | disposition home or self-care (01) ==
LOC: BFHLAB 08:54
PROVIDERS: PCP Nurse Practitioner Family; Visit Provider Nurse Practitioner Family
DX: E03.9 Hypothyroidism, unspecified (principal); E11.9 Type 2 diabetes mellitus without complications; E55.9 Vitamin D deficiency, unspecified; E53.8 Deficiency of other specified B group vitamins; E78.5 Hyperlipidemia, unspecified; I10 Essential (primary) hypertension
CPT/HCPCS: 36415; 80053; 80061; 82306; 82607; 83036; 84439; 84443; 84480; 85025

== ENCOUNTER → 2025-05-19 | Outpatient (CLI) | payer BC, SELFPAY ==
--- NOTE | 2025-05-19 08:09 | BI_ITS ---
EXAM: SCRN MAMM (CAD)W/THOM BILAT DATE: 05/19/2025 CLINICAL HISTORY: F, Age 59 y/o , SCREENING TECHNIQUE: Procedure Code: [id number] Modality: MG Procedure: SCRN MAMM (CAD)W/THOM BILAT COMPARISON: Prior exam(s) dated 04/27/2024, 03/16/2023, 03/12/2022. FINDINGS: TISSUE DENSITY: There are scattered areas of fibroglandular density. Bilateral Breast Mammographic Findings: No significant masses, calcifications or other abnormalities are identified. BI/SCRN MAMM (CAD)W/THOM BILAT IMPRESSION: There is no mammographic evidence of malignancy. OVERALL FINAL ASSESSMENT BI-RADS 1: NEGATIVE. RECOMMENDATION: Routine annual follow-up in 1 Year Additional Recommendation none A letter with findings and recommendations will be mailed to the patient. Reading Location: [id number]
--- OUTSIDE RECORDS SUMMARY | 2025-05-19 08:30 | XMS RPT_ITS | CCD ---
Author Organization [facility] Inform ion Partnership [facility] Care Team Providers Care Shopping Investigator Name Role Phone DELICIA HI, BAKARI Primary Care Physician REFERRING, VIRGIL RENDON ID Attending Unavailable BAKARI CARRERO MD Primary Care Unavailable DR VALENCIA KOCH DO Attending UnavailBAKARI Nolen MD Primary Care Unavailable Unavailable Primary Care Provider Unavailabl e Unavailable Primary Care Provider Unavailabl e Nehemias, Diann Attending Unavailable Nehemias, Diann Primary Care Unavailable Nehemias, Diann Referring Unavailable Nehemias, Diann Primary Care Unavailable Nehemias, Diann Attending Unavailable Nehemias, Diann Referring Unavailable Nehemias, Diann Primary Care Unavailable Nehemias, Diann Attending Unavailable Nehemias, Diann Referring Unavailable Nehemias, Diann Primary Care Unavailable Nehemias, Diann Attending Unavailable ROSO, EASTON Referring Unavailable ROSO, EASTON Referring Unavailable ROSO, EASTON Referring Unavailable ROSO, EASTON Referring Unavailable ROSO, EASTON Referring Unavailable ROSO, EASTON Referring Unavailable ROSO, EASTON Referring Unavailable ROSO, EASTON Referring Unavailable ROSO, EASTON Referring Unavailable Allergies Allergy Classification Reported Allergen(s) Allergy Type Date of Onset Reaction(s) Facility (5 sources) Meperidine; Translations: [MEPERIDINE HCL] Drug Allergy 04-18-2005 Intolerance [facility] Work Phone: Medications Current Medications Medication Drug Class(es) Dates Sig (Normalized) Sig (Original) [id number] 200 actuat albuterol 0.09 mg/actuat metered dose inhaler (4 sources) beta2-Adrenergic Agonist Start: 09-01-2023 End: 10-01-2023 take 2 puff(s) by inhalation every four hours as needed for wheezing albuterol HFA (PROVENTIL HFA, VENTOLIN HFA) 90 mcg/actuation inhaler Indications: Rales Inhale 2 Puffs as instructed every 4 hours as needed for wheezing/shortnes s of breath (as needed). 1 Each 09/01/2023 Active Comment on above: Inhale 2 Puffs as in structed every 4 hours as needed for wheezing/shortness of breath (as needed). amoxicillin 875 mg oral tablet (1 source) Penicillin-class Antibacterial Start: 09-02-2023 End: 09-12-2023 take 1 tablet by mouth twice daily amoxicillin (AMOXIL) 875 mg tablet Indications: Strep throat Take 1 tablet by mouth two times a day for 10 days. 20 tablet 0 09/02/2023 09/12/2023 Active Comment on above: Take 1 tablet by mica th two times a day for 10 days. aspirin 81 mg delayed release oral tablet (3 sources) Platelet Aggregation Inhibitor, Nonsteroidal Anti-inflammatory Drug Start: 12-12-2019 aspirin 81 mg oral delayed release tablet Dose : 81 mg = 1 tab(s), Oral, Daily, 0 Refill(s) Start Date: 12/12/19 Status: Ordered Start: 12-12-2019 aspirin 81 mg oral delayed release tablet Dose : 81 mg = 1 tab(s), Oral, Daily, 0 Refill(s) Start Date: 12/12/19 Status: Ordered benzonatate 100 mg oral capsule (2 sources) Non-narcotic Antitussive Start: 09-01-2023 End: 09-11-2023 take 100-200 mg by mouth every eight hours as needed for cough and cough benzonatate (TESSALON PERLES) 100 mg capsule Indications: Acute cough Take 1-2 capsules by mouth three times a day as needed for cough for up to 10 days. 30 capsule 0 09/01/2023 09/11/2023 Active Comment on above: Take 1-2 capsules by mouth three times a day as needed for cough for up to 10 days. cetirizine hydrochloride 10 mg oral tablet (3 sources) Histamine-1 Receptor Antagonist Start: 12-22-2019 Zyrtec 10 mg oral tablet Dose : 10 mg = 1 tab(s), Oral, qDay, # 30 tab(s), 0 Refill(s) Start Date: 12/22/19 Status: Ordered fenofibrate 54 mg oral tablet (7 sources) Peroxisome Proliferator Receptor alpha Agonist Start: 07-28-2023 Fenofibrate (LOFIBRA) 54 mg tablet once daily. 07/28/2023 Active Start: 11-24-2019 fenofibrate 54 mg oral tablet Dose : 54 mg = 1 tab(s), Oral, qDayM, 0 Refill(s) Start Date: 11/24/19 Status: Ordered Comment on above: once daily. levothyroxine sodium 0.05 mg oral tablet (3 sources) l-Thyroxine Start: 11-24-19 Synthroid 50 mcg (0.05 mg) oral tablet Dose : 50 mcg = 1 tab(s), Oral, qDay, # 30 tab(s), 0 Refill(s) Start Date: 11/24/19 Status: Ordered metFORMIN hydrochloride 500 mg oral tablet (3 sources) Biguanide Start: 07-26-19 take 1 tablet by mouth twice daily MetFORMIN (Eqv-Glucophage XR) 500 mg oral tablet, EXTENDED RELEASE See Instructions, TAKE 1 TABLET TWICE A DAY, # 180 tab(s), 3 Refill(s), Pharmacy: [facility], 155, cm, 06/07/20 11:52:00 EST, Height, kg, 06/07/20 11:52:00 EST, Dosing Weight Start Date: 07/26/20 Status: Ordered Multivitamin preparation (3 sources) Start: 11-24-19 take 1 tablet by mouth once daily Multivitamin Dose = 1 tab(s), Oral, Daily, 0 Refill(s) Start Date: 11/24/19 Status: Ordered phentermine hydrochloride 37.5 mg oral tablet (1 source) Sympathomimetic Amine Anorectic Start: 03-14-20 End: 07-12-19 Adipex-P 37.5 mg oral tablet Dose : 18.75 mg = 0.5 tab(s), Oral, BID, X 30 day(s), # 30 tab(s), 3 Refill(s), 07/12/21 13:43:00 EST, Pharmacy: [facility]/pharmacy #[id number], Increased BMI, 155, cm, 03/14/21 13:22:00 EDT, Height, 71.5, kg, 03/14/21 13:22:00 EDT, Dosing Weight Start Date: 03/14/21 Stop Date: 07/12/21 Status: Ordered prasterone 25 mg oral tablet (1 source) Start: 06-07-19 DHEA 25 mg oral tablet Dose : 50 mg = 2 tab(s), Oral, qDay, # 30 tab(s), 0 Refill(s) Start Date: 06/07/20 Status: Ordered predniSONE 20 mg oral tablet (4 sources) Start: 09-01-19 End: 09-06-19 take 1 tablet by mouth twice daily predniSONE (DELTASONE) 20 mg tablet Indications: Sore throat Take 1 tablet by mouth two times a day for 5 days. 10 tablet 0 09/01/2023 09/06/2023 Active Start: 08-13-2023 End: 09-01-2023 take 4 tablets by mouth once daily, then take 2 tablets by mouth once daily, then take 1 tablet by mouth once daily predniSONE (DELTASONE) 5 mg tablet TAKE 4 TABLETS BY MOUTH ONCE DAILY FOR 4 DAYS AND 2 ONCE DAILY FOR 4 DAYS AND 1 ONCE DAILY FOR 4 DAYS 0 08/13/2023 09/01/2023 Discontinued Start: 03-14-2021 End: 03-21-2021 take 1 tablet by mouth once daily predniSONE 10 mg oral tablet Dose : 10 mg = 1 tab(s), Oral, qDayM, 30 mg first day 20 mg second day 10 mg - daily for 5 days, # 10 tab(s), 0 Refill(s), Pharmacy: [facility]/pharmacy #[id number], 155, cm, 03/14/21 13:22:00 EDT, Height, kg, 03/14/21 13:22:00 EDT, Dosing Weight Start Date: 03/14/21 Stop Date: 03/21/21 Status: Ordered Comment on above: Take 1 tablet by [facility] two times a day for 5 days. TAKE 4 TABLETS BY [facility] ONCE DAILY FOR 4 DAYS AND 2 ONCE DAILY FOR 4 DAYS AND 1 ONCE DAILY FOR 4 DAYS ramipril 10 mg oral capsule (7 sources) Angiotensin Converting Enzyme Inhibitor Start: 07-05-2023 ramipril (ALTACE) 10 mg capsule once daily. 07/05/2023 Active Start: 11-24-2019 ramipril 10 mg oral capsule Dose : 10 mg = 1 cap(s), Oral, qDay, # 30 cap(s), 0 Refill(s) Start Date: 11/24/19 Status: Ordered Comment on above: once daily. rosuvastatin calcium 40 mg oral tablet (7 sources) HMG-CoA Reductase Inhibitor Start: 06-06-2023 rosuvastatin (CRESTOR) 40 mg tablet once daily. 06/06/2023 Active Start: 10-30-2020 rosuvastatin 4 0 mg oral tablet Dose : 40 mg = 1 tab(s), Oral, Daily, # 90 tab(s), 3 Refill(s), Pharmacy: [facility], 155, cm, 06/07/20 11:52:00 EST, Height, kg, 06/07/20 11:52:00 EST, Dosing Weight Start Date: 10/30/20 Status: Ordered Comment on above: once daily. Vitamin D3 5000 intl units (125 mcg) oral capsule (3 sources) Start: 06-07-2020 Vitamin D3 500 0 intl units (125 mcg) oral capsule Dose : 5,000 International_Unit = 1 cap(s), Oral, qDay, # 100 cap(s), 0 Refill(s) Start Date: 06/07/20 Status: Ordered Completed/Discontinued Medications Medication Drug Class(es) Dates Sig (Normalized) Sig (Original) ezetimibe 10 mg oral tablet (1 source) Dietary Cholesterol Absorption Inhibitor Start: 11-25-2006 End: 09-01-2023 take 1 tablet by mouth once daily ezetimibe (ZETIA) 10 mg ORAL Tab Take one(1) tablet daily. 0 11/25/2006 09/01/2023 Discontinued Comment on above: Take one(1) tablet d aily. 24 hr phentermine 3.75 mg / topiramate 23 mg extended release oral capsule (3 sources) Sympathomimetic Amine Anorectic Start: 06-18-2021 End: 08-17-2021 take 1 capsule by mouth once daily in the morning Qsymia 3.75 mg-23 mg oral capsule, extended release Dose = 1 cap(s), Oral, qAM, # 30 cap(s), 1 Refill(s), Pharmacy: [facility]/pharmacy #[id number], 155, cm, 06/13/21 13:32:00 EST, Height, 69.8, kg, 06/13/21 13:32:00 EST, Dosing Weight Start Date: 06/18/21 Stop Date: 08/17/21 Status: Ordered Start: 06-02-2021 End: 08-31-2021 take 1 capsule by mouth once daily in the morning Qsymia 7.5 mg-46 mg oral capsule, extended release Dose = 1 cap(s), Oral, qAM, # 30 cap(s), 2 Refill(s), [id number], 155, cm, 03/14/21 13:22:00 EDT, Height, 71.5, kg, 03/14/21 13:22:00 EDT, Dosing Weight Start Date: 06/02/21 Stop Date: 08/31/21 Status: Ordered raNITIdine 150 mg oral capsule (1 source) Histamine-2 Receptor Antagonist Start: 12-10-2005 End: 09-01-2023 ZANTAC 150 MG CAP Take one(1) tablet daily. 0 12/10/2005 09/01/2023 Discontinued Comment on above: Take one(1) tablet d aily. synthetic conjugated estrogens, b 1.25 mg oral tablet (1 source) Start: 11-25-2006 End: 09-01-2023 Synthetic Conj Estrogens B (ENJUVIA) 1.25 mg ORAL Tab one(1) daily 0 11/25/2006 09/01/2023 Discontinued Comment on above: one(1) daily Problems Active Problems Problem Classification Problem Date Documented Date Episodic/Chronic Allergic reactions (2 sources) Contact dermatitis due to poison sarah 03-14-2021 Episodic Diabetes mellitus without complication (3 sources) Prediabetes 12-22-2019 Episodic Disorders of lipid metabolism (4 sources) Hyperlipidemia; Translations: [Hyperlipidemia, unspecified] 11-24-2019 Chronic Essential hypertension (3 sources) Benign hypertension 12-14-2019 Chronic Heart valve disorders (3 sources) Aortic valve regurgitation 12-14-2019 Chronic Malaise and fatigue (4 sources) Chronic fatigue syndrome; Translations: [Chronic fatigue syndrome] Onset: 11-27-2006 11-27-2006 Chronic Nutritional deficiencies (4 sources) Vitamin D deficiency; Translations: [Vitamin D deficiency, unspecified] 11-24-2019 Chronic Nutritional deficiencies (1 source) Vitamin B deficiency; Translations: [Deficiency of other specified B group vitamins] Episodic Other acquired deformities (2 sources) Spondylolisthesis; Translations: [Spondylolisthesis, lumbosacral region] Onset: 01-10-2025 01-10-2025 Episodic Other acquired deformities (1 source) Spondylolisthesis, lumbosacral region; Translations: [Spondylolisthesis of lumbosacral region] Onset: 01-10-2025 Episodic Other circulatory disease (2 sources) Respiratory crackles; Translations: [Other specified symptoms and signs involving the circulatory and respiratory systems] 09-01-2023 Episodic Other lower respiratory disease (1 source) Cough; Translations: [Acute cough] 09-01-2023 Episodic Other nervous system disorders (1 source) Other chronic pain; Translations: [Chronic right-sided low back pain with right-sided sciatica] Onset: 01-10-2025 Chronic Other nutritional; endocrine; and metabolic disorders (3 sources) Failure to lose weight 11-24-2019 Episodic Other screening for suspected conditions (not mental disorders or infectious disease) (1 source) Encounter for screening mammogram for malignant neoplasm of breast; Translations: [Encounter for screening mammogram for malignant neoplasm of breast] Onset: 05-27-2024 Episodic Residual codes; unclassified (3 sources) Postmenopausal state 12-22-2019 Episodic Spondylosis; intervertebral disc disorders; other back problems (6 sources) Lumbar radiculopathy; Translations: [Radiculopathy, lumbar region] Onset: 01-10-2025 01-10-2025 Episodic Thyroid disorders (5 sources) Hypothyroidism; Translations: [Hypothyroidism, unspecified] Onset: 05-18-2024 11-24-2019 Chronic Unclassified (3 sources) Patient encounter status 11-24-2019 Past or Other Problems Problem Classification Problem Date Documented Da te Episodic/Chronic Abdominal pain (4 sources) Epigastric pain; Translations: [Epigastric pain] Onset: 12-22-2005 12-22-2005 Episodic Deficiency and other anemia (4 sources) Pernicious anemia; Translations: [Vitamin B12 deficiency anemia due to intrinsic factor deficiency] Onset: 11-27-2006 11-27-2006 Episodic Other and unspecified benign neoplasm (4 sources) Benign neoplasm of colon; Translations: [Benign neoplasm of colon, unspecified] Onset: 12-25-2005 12-25-2005 Episodic Other skin disorders (4 sources) Sebaceous cyst of skin; Translations: [Sebaceous cyst] Onset: 11-18-2006 11-18-2006 Episodic Other upper respiratory infections (2 sources) Sore throat symptom; Translations: [Acute pharyngitis, unspecified] Onset: 09-07-2023 09-01-2023 Episodic Results Test Name Value Interpretation Reference Range [facility] CN[facility]APY OT/PT/Speech Visit ([facility]) DOROTHY DE LA CRUZ ([id number]) 1965 F Date Time Provider Department 03/13/25 2:00 PM ANAM ZAVALETA [facility] Date Time Provider Department Center 03/13/2025 2:00 PM [id number], ANDREW [facility] Reason for Visit: PT Discharge [752] Primary Visit Diagnosis:Chronic right-sided low back pain with right-sided sciatica [M54.41, G89.29] Other Visit Diagnoses:Lumbar radiculopathy [M54.16] Spondylolisthesis of lumbosacral region [M43.17] Allergies As of Date: 03/13/2025 Noted Allergy Reaction DEMEROL (MEPERIDINE HCL) 04/18/2005 5 - Intolerance Date Reviewed: 09/01/2023 Reviewed by: Constantin Balbuena Jr., CRIMINAL JUSTICE FACULTY.ELECTRICAL INSTRUMENT TECHNICIAN - Fully Assessed Prescriptions as of 03/13/2025 - rosuvastatin (CRESTOR) 40 mg tablet once daily. - ramipril (ALTACE) 10 mg capsule once daily. - Fenofibrate (LOFIBRA) 54 mg tablet once daily. - albuterol HFA (PROVENTIL HFA, VENTOLIN HFA) 90 mcg/actuation inhaler Inhale 2 Puffs as instructed every 4 hours as needed for wheezing/shortness of breath (as needed). Letter Text [facility] 03-10-2025 CNTHERAPY OT/PT/Speech Visit ([facility]) DOROTHY DE LA CRUZ ([id number]) 1965 F Date Time Provider Department 03/10/25 8:45 AM WAQAR ANAM [facility] Date Time Provider Department Center 03/10/2025 8:45 AM [id number], ANDREW [facility] Reason for Visit: Physical Therapy [503] Primary Visit Diagnosis:Chronic right-sided low back pain with right-sided sciatica [M54.41, G89.29] Other Visit Diagnoses:Lumbar radiculopathy [M54.16] Spondylolisthesis of lumbosacral region [M43.17] Allergies As of Date: 03/10/2025 Noted Allergy Reaction DEMEROL (MEPERIDINE HCL) 04/18/2005 5 - Intolerance Date Reviewed: 09/01/2023 Reviewed by: Constantin Balbuena Jr., CRIMINAL JUSTICE FACULTY.ELECTRICAL INSTRUMENT TECHNICIAN - Fully Assessed Prescriptions as of 03/10/2025 - rosuvastatin (CRESTOR) 40 mg tablet once daily. - ramipril (ALTACE) 10 mg capsule once daily. - Fenofibrate (LOFIBRA) 54 mg tablet once daily. - albuterol HFA (PROVENTIL HFA, VENTOLIN HFA) 90 mcg/actuation inhaler Inhale 2 Puffs as instructed every 4 hours as needed for wheezing/shortness of breath (as needed). [facility] CNTHERAPYon 03-07-2025 CNTHERAPY OT/PT/Speech Visit ([facility]) DOROTHY DE LA CRUZ ([id number]) 1965 F Date Time Provider Department 03/07/25 8:45 AM ANAM ZAVALETA [facility] Date Time Provider Department Center 03/07/2025 8:45 AM [id number][facility] Reason for Visit: Physical Therapy [503] Primary Visit Diagnosis:Chronic right-sided low back pain with right-sided sciatica [M54.41, G89.29] Other Visit Diagnoses:Lumbar radiculopathy [M54.16] Spondylolisthesis of lumbosacral region [M43.17] Allergies As of Date: 03/07/2025 Noted Allergy Reaction DEMEROL (MEPERIDINE HCL) 04/18/2005 5 - Intolerance Date Reviewed: 09/01/2023 Reviewed by: Constantin Balbuena Jr., CRIMINAL JUSTICE FACULTY.ELECTRICAL INSTRUMENT TECHNICIAN - Fully Assessed Prescriptions as of 03/07/2025 - rosuvastatin (CRESTOR) 40 mg tablet once daily. - ramipril (ALTACE) 10 mg capsule once daily. - Fenofibrate (LOFIBRA) 54 mg tablet once daily. - albuterol HFA (PROVENTIL HFA, VENTOLIN HFA) 90 mcg/actuation inhaler Inhale 2 Puffs as instructed every 4 hours as needed for wheezing/shortness of breath (as needed). [facility] CNTHERAPYon 03-03-2025 CNTHERAPY OT/PT/Speech Visit ([facility]) DOROTHY DE LA CRUZ ([id number]) 1965 F Date Time Provider Department 03/03/25 8:00 AM ZAVALETA, ANAM [facility] Date Time Provider Department Center 03/03/2025 8:00 AM [id number][facility] Reason for Visit: Physical Therapy [503] Primary Visit Diagnosis:Chronic right-sided low back pain with right-sided sciatica [M54.41, G89.29] Other Visit Diagnoses:Lumbar radiculopathy [M54.16] Spondylolisthesis of lumbosacral region [M43.17] Allergies As of Date: 03/03/2025 Noted Allergy Reaction DEMEROL (MEPERIDINE HCL) 04/18/2005 5 - Intolerance Date Reviewed: 09/01/2023 Reviewed by: Constantin Balbuena Jr., CRIMIN[employer] JUSTICE FACULTY.ELECTRICAL INSTRUMENT TECHNICIAN - Fully Assessed Prescriptions as of 03/03/2025 - rosuvastatin (CRESTOR) 40 mg tablet once daily. - ramipril (ALTACE) 10 mg capsule once daily. - Fenofibrate (LOFIBRA) 54 mg tablet once daily. - albuterol HFA (PROVENTIL HFA, VENTOLIN HFA) 90 mcg/actuation inhaler Inhale 2 Puffs as instructed every 4 hours as needed for wheezing/shortness of breath (as needed). [facility] CNTHERAPYon 02-28-2025 CNTHERAPY OT/PT/Speech Visit ([facility]) DOROTHY DE LA CRUZ ([id number]) 1965 F Date Time Provider Department 02/28/25 9:30 AM ANAM ZAVALETA [facility] Date Time Provider Department Center 02/28/2025 9:30 AM [id number], ANDREW [facility] Reason for Visit: Physical Therapy [503] Primary Visit Diagnosis:Chronic right-sided low back pain with right-sided sciatica [M54.41, G89.29] Other Visit Diagnoses:Lumbar radiculopathy [M54.16] Spondylolisthesis of lumbosacral region [M43.17] Allergies As of Date: 02/28/2025 Noted Allergy Reaction DEMEROL (MEPERIDINE HCL) 04/18/2005 5 - Intolerance Date Reviewed: 09/01/2023 Reviewed by: Constantin Balbuena Jr., CRIMINAL JUSTICE FACULTY.ELECTRICAL INSTRUMENT TECHNICIAN - Fully Assessed Prescriptions as of 02/28/2025 - rosuvastatin (CRESTOR) 40 mg tablet once daily. - ramipril (ALTACE) 10 mg capsule once daily. - Fenofibrate (LOFIBRA) 54 mg tablet once daily. - albuterol HFA (PROVENTIL HFA, VENTOLIN HFA) 90 mcg/actuation inhaler Inhale 2 Puffs as instructed every 4 hours as needed for wheezing/shortness of breath (as needed). [facility] CNTHERAPYon 02-23-2025 CNTHERAPY OT/PT/Speech Visit ([facility]) DOROTHY DE LA CRUZ ([id number]) 1965 F Date Time Provider Department 02/23/25 8:00 AM ANAM ZAVALETA [facility] Date Time Provider Department Center 02/23/2025 8:00 AM [id number], ANDREW [facility] Reason for Visit: Physical Therapy [503] Primary Visit Diagnosis:Chronic right-sided low back pain with right-sided sciatica [M54.41, G89.29] Other Visit Diagnoses:Lumbar radiculopathy [M54.16] Spondylolisthesis of lumbosacral region [M43.17] Allergies As of Date: 02/23/2025 Noted Allergy Reaction DEMEROL (MEPERIDINE HCL) 04/18/2005 5 - Intolerance Date Reviewed: 09/01/2023 Reviewed by: Constantin Balbuena Jr., CRIMINAL JUSTICE FACULTY.ELECTRICAL INSTRUMENT TECHNICIAN - Fully Assessed Prescriptions as of 02/23/2025 - rosuvastatin (CRESTOR) 40 mg tablet once daily. - ramipril (ALTACE) 10 mg capsule once daily. - Fenofibrate (LOFIBRA) 54 mg tablet once daily. - albuterol HFA (PROVENTIL HFA, VENTOLIN HFA) 90 mcg/actuation inhaler Inhale 2 Puffs as instructed every 4 hours as needed for wheezing/shortness of breath (as needed). [facility] OT/PT/Speech Visit ([facility]) DELMADOROTHY MORRIS ([id number]) 1965 F Date Time Provider Department 02/21/25 8:00 AM ANAM ZAVALETAOH Date Time Provider Department Center 02/21/2025 8:00 AM [id number], ANDREW [facility] Reason for Visit: Physical Therapy [503] Primary Visit Diagnosis:Chronic right-sided low back pain with right-sided sciatica [M54.41, G89.29] Other Visit Diagnoses:Lumbar radiculopathy [M54.16] Spondylolisthesis of lumbosacral region [M43.17] Allergies As of Date: 02/21/2025 Noted Allergy Reaction DEMEROL (MEPERIDINE HCL) 04/18/2005 5 - Intolerance Date Reviewed: 09/01/2023 Reviewed by: Constantin Balbuena Jr., CRIMINAL JUSTICE FACULTY.ELECTRICAL INSTRUMENT TECHNICIAN - Fully Assessed Prescriptions as of 02/21/2025 - rosuvastatin (CRESTOR) 40 mg tablet once daily. - ramipril (ALTACE) 10 mg capsule once daily. - Fenofibrate (LOFIBRA) 54 mg tablet once daily. - albuterol HFA (PROVENTIL HFA, VENTOLIN HFA) 90 mcg/actuation inhaler Inhale 2 Puffs as instructed every 4 hours as needed for wheezing/shortness of breath (as needed). [facility]/PT/Speech Visit ([facility]) DOROTHY DE LA CRUZ ([id number]) 1965 F Date Time Provider Department 02/17/25 8:45 AM WAQARANAM Date Time Provider Department Center 02/17/2025 8:45 AM [id number], ANDREW [facility] Reason for Visit: Physical Therapy [503] PT Progress Note [1596] Primary Visit Diagnosis:Chronic right-sided low back pain with right-sided sciatica [M54.41, G89.29] Other Visit Diagnoses:Lumbar radiculopathy [M54.16] Spondylolisthesis of lumbosacral region [M43.17] Allergies As of Date: 02/17/2025 Noted Allergy Reaction DEMEROL (MEPERIDINE HCL) 04/18/2005 5 - Intolerance Date Reviewed: 09/01/2023 Reviewed by: Constantin Balbuena Jr., CRIMINAL JUSTICE FACULTY.ELECTRICAL INSTRUMENT TECHNICIAN - Fully Assessed Prescriptions as of 02/17/2025 - rosuvastatin (CRESTOR) 40 mg tablet once daily. - ramipril (ALTACE) 10 mg capsule once daily. - Fenofibrate (LOFIBRA) 54 mg tablet once daily. - albuterol HFA (PROVENTIL HFA, VENTOLIN HFA) 90 mcg/actuation inhaler Inhale 2 Puffs as instructed every 4 hours as needed for wheezing/shortness of breath (as needed). Sports Photographer: Therapy (PT/OT/Speech/Resp) ID: [id number] 02/17/2025 9:21 AM Author: ANAM ZAVALETA Signed by ANAM ZAVALETA PT, DPT on 02/17/2025 at 9:21 AM Document text: Program_ID:[id number] Access Code: [email or web address] URL: [email or web address] [email or web address]/ Date: 02-17-2025 Prepared By: Anam Zavaleta Program Notes Exercises - Supine July with Posterior Pelvic Tilt - 1 x daily - 7 x weekly - 3 sets - 10 reps - Supine Piriformis Stretch with Foot on Ground - 1 x daily - 7 x weekly - 3 sets - reps - Supine Hamstring Stretch with Strap - 1 x daily - 7 x weekly - 3 sets - reps - Supine ITB Stretch with Strap - 1 x daily - 7 x weekly - 3 sets - reps - Supine March with Posterior Pelvic Tilt - 1 x daily - 7 x weekly - 3 sets - 10 reps - Hooklying Clamshell with Resistance - 1 x daily - 7 x weekly - 3 sets - 10 reps -- [facility] THERAPY NTon 02-17-2025 THERAPY NT HNO ID: [id number] Author: ANAM ZAVALETA, PT, DPT Service: Physical Therapy Author Type: Physical Therapist Type: Therapy (PT/OT/Speech/Resp) Filed: 02/17/2025 09:21 Note Text: Program_ID:[id number] Access Code: [email or web address] URL: [email or web address] Date: 02-17-2025 Prepared By: Anam Zavaleta Program Notes Exercises - Supine March with Posterior Pelvic Tilt - 1 x daily - 7 x weekly - 3 sets - 10 reps - Supine Piriformis Stretch with Foot on Ground - 1 x daily - 7 x weekly - 3 sets - reps - Supine Hamstring Stretch with Strap - 1 x daily - 7 x weekly - 3 sets - reps - Supine ITB Stretch with Strap - 1 x daily - 7 x weekly - 3 sets - reps - Supine March with Posterior Pelvic Tilt - 1 x daily - 7 x weekly - 3 sets - 10 reps - Hooklying Clamshell with Resistance - 1 x daily - 7 x weekly - 3 sets - 10 reps [facility] CNTHERAPYon 01-10-2025 CNTHERAPY OT/PT/Speech Visit (RMMTUS) HALLEDOROTHY ELLIOTT ([id number]) 1965 F Date Time Provider Department 01/10/25 9:30 AM ANAM ZAVALETA [facility] Date Time Provider Department [place] 01/10/2025 9:30 AM [id number], ANDREW [facility] M Reason for Visit: PT Matilde [[id number]] Primary Visit Diagnosis:Lumbar radiculopathy [M54.16] Other Visit Diagnoses:Spondylolist hesis of lumbosacral region [M43.17] Chronic right-sided low back pain with right-sided sciatica [M54.41, G89.29] Allergies As of Date: 01/10/2025 Noted Allergy Reaction DEMEROL (MEPERIDINE HCL) 04/18/2005 5 - Intolerance Date Reviewed: 09/01/2023 Reviewed by: Constantin Balbuena Jr., [employer] FACULTY.ELECTRICAL INSTRUMENT TECHNICIAN - Fully Assessed Prescriptions as of 02/09/2025 - rosuvastatin (CRESTOR) 40 mg tablet once daily. - ramipril (ALTACE) 10 mg capsule once daily. - Fenofibrate (LOFIBRA) 54 mg tablet once daily. - albuterol HFA (PROVENTIL HFA, VENTOLIN HFA) 90 mcg/actuation inhaler Inhale 2 Puffs as instructed every 4 hours as needed for wheezing/shortness of breath (as needed). Sports Photographer: Addendum Therapy (PT/OT/Speech/Resp) ID: [id number] 01/10/2025 10:01 AM Author: ANAM ZAVALETA Signed by ANAM ZAVALETA PT, DPT on 01/10/2025 at 10:01 AM * * * This document replaces document [id number] * * * Document text: Program_ID:[id number] Access Code: [email or web address] URL: [email or web address] Date: 01-10-2025 Prepared By: Anam Zavaleta Program Notes Exercises - Supine March with Posterior Pelvic Tilt - 1 x daily - 7 x weekly - 3 sets - 10 reps - Supine Piriformis Stretch with Foot on Ground - 1 x daily - 7 x weekly - 3 sets - 10 reps - Supine Hamstring Stretch with Strap - 1 x daily - 7 x weekly - 3 sets - 10 reps - Supine ITB Stretch with Strap - 1 x daily - 7 x weekly - 3 sets - 10 reps -- Normal [facility] THERAPY NTon 01-10-2025 THERAPY NT HNO ID: [id number] Author: ANAM ZAVALETA, PT, DPT Service: Physical Therapy Author Type: Physical Therapist Type: Therapy (PT/OT/Speech/Resp) Filed: 01/10/2025 10:01 Note Text: Program_ID:[id number] Access Code: [email or web address] URL: [email or web address] Date: 01-10-2025 Prepared By: Anam Zavaleta Program Notes Exercises - Supine March with Posterior Pelvic Tilt - 1 x daily - 7 x weekly - 3 sets - 10 reps - Supine Piriformis Stretch with Foot on Ground - 1 x daily - 7 x weekly - 3 sets - 10 reps - Supine Hamstring Stretch with Strap - 1 x daily - 7 x weekly - 3 sets - 10 reps - Supine ITB Stretch with Strap - 1 x daily - 7 x weekly - 3 sets - 10 reps Normal [facility] SCRN MAMM (CAD)W/THOM Crouch n 04-27-2024 SCRN MAMM (CAD)W/THOM [facility] Imaging Services [address] [place], [place] [address] SCRN MAMM (CAD)W/THOM ANDERSON MR#: [id number] Acct: [id number] Name: DOROTHY DE LA CRUZ Rep #: [id number] : 1965 F 58 From: Naif Ocampo MD PCP: EDOUARD Lemons Status: REG CLI Study: SCRN MAMM (CAD)W/THOM BILAT Date of Exam: 04/02 12/22 Exam# [id number] Ordering Dr: Diann Del Cid [id number] MAMMOGRAPHY - BILATERAL SCREENING 3-D TOMOSYNTHESIS REASON FOR EXAM: Female, 58 years old. Routine screening PERTINENT HISTORY: No significant family history. TECHNIQUE: 2-D mammograms and 3-D Tomosynthesis of the breast (s) were performed. CAD was performed. COMPARISON: 03/12/2022 FINDINGS: The breast composition is composed of scattered fibroglandular density. Scattered benign calcifications are seen. No dense spiculated masses or suspicious microcalcifications are identified. No architectural distortion is identified. There is no skin thickening or retraction. There has been no significant change since the prior study. BI/SCRN MAMM (CAD)W/THOM BILAT IMPRESSION: No mammographic signs of malignancy. Routine yearly mammograms recommended. ASSESSMENT CATEGORY: BIRADS Category 1: Negative. A letter regarding these results will be sent to the patient by the facility within 30 days. FOLLOW UP RECOMMENDATION: Yearly follow up mammogram recommended. (A) Approximately 10% of breast cancers are not detected by mammography. A normal mammogram should not delay biopsy of a clinically suspicious abnormality. Electronically Signed: Dk Ocampo MD at 9:18 EST , CC: EDOUARD Del Cid [employer] Plant Supervisor: Signed Normal [facility] Vitamin B12on 04-19-2024 Cobalamin (Vitamin B12) [Mass/Vol] 421 pg/mL Normal 211-911 [facility] Comment on above: Performed By: #### L 501.9520, L500.4050, L500.4100, L506.1000, L503.0105, L100.0100, L506.0400, L501.9186 #### [facility] [address] [place], [address] CBC W/Diff, Automatedon 04-01 Absolute Lymph 2.54 X10 3/uL Normal 0.83-4.51 [facility] Comment on above: Performed By: #### L 501.9520, L500.4050, L500.4100, L506.1000, L503.0105, L100.0100, L506.0400, L501.9186 #### [facility] [address] [place], [address] Absolute Neut 2.7 X10 3/uL Normal 2.0-7.7 [facility] Comment on above: Performed By: #### L 501.9520, L500.4050, L500.4100, L506.1000, L503.0105, L100.0100, L506.0400, L501.9186 #### [facility] [address] [place], [address] Basophils/100 WBC (Bld) 0.7 % Normal 0-1 [facility] Comment on above: Performed By: #### L 501.9520, L500.4050, L500.4100, L506.1000, L503.0105, L100.0100, L506.0400, L501.9186 #### [facility] [address] [place], [address] Eosinophils/100 WBC (Bld) 2.7 % Normal 0-5 [facility] Comment on above: Performed By: #### L 501.9520, L500.4050, L500.4100, L506.1000, L503.0105, L100.0100, L506.0400, L501.9186 #### [facility] [address] [place], [address] Erythrocyte distribution width (RBC) [Ratio] 13.3 % Normal 11.6-14.6 [facility] Comment on above: Performed By: #### L 501.9520, L500.4050, L500.4100, L506.1000, L503.0105, L100.0100, L506.0400, L501.9186 #### [facility] [address] [place], [address] Hematocrit (Bld) [Volume fraction] 41.0 % Normal 37-47 [facility] Comment on above: Performed By: #### L 501.9520, L500.4050, L500.4100, L506.1000, L503.0105, L100.0100, L506.0400, L501.9186 #### [facility] [address] [place], [address] Hemoglobin (Bld) [Mass/Vol] 13.4 g/dL Normal 12.0-15.0 [facility] Comment on above: Performed By: #### L 501.9520, L500.4050, L500.4100, L506.1000, L503.0105, L100.0100, L506.0400, L501.9186 #### [facility] [address] [place], [address] IG% 0.300 Normal 0.0-0.9 [facility] Comment on above: Result Comment: IG% - Immature Granulocytes (promyelocytes, myelocytes and metamyelocytes) > 1% indicates that a LEFT SHIFT is Present. Performed By: #### L 501.9520, L500.4050, L500.4100, L506.1000, L503.0105, L100.0100, L506.0400, L501.9186 #### [facility] [address] [place], [address] Lymphocytes/100 WBC (Bld) 42.9 % High 19-41 [facility] Comment on above: Performed By: #### L 501.9520, L500.4050, L500.4100, L506.1000, L503.0105, L100.0100, L506.0400, L501.9186 #### [facility] [address] [place], [address] MCH (RBC) [Entitic mass] 29.5 pg Normal 27.0-32.0 [facility] Comment on above: Performed By: #### L 501.9520, L500.4050, L500.4100, L506.1000, L503.0105, L100.0100, L506.0400, L501.9186 #### [facility] [address] [place], [address] MCHC (RBC) [Mass/Vol] 32.7 g/dL Normal 32-36 [facility] Comment on above: Performed By: #### L 501.9520, L500.4050, L500.4100, L506.1000, L503.0105, L100.0100, L506.0400, L501.9186 #### [facility] [address] [place], [address] MCV (RBC) [Entitic vol] 90.3 fL Normal 81-99 [facility] Comment on above: Performed By: #### L 501.9520, L500.4050, L500.4100, L506.1000, L503.0105, L100.0100, L506.0400, L501.9186 #### [facility] [address] [place], [address] Monocytes/100 WBC (Bld) 7.6 % Normal 0-10 [facility] Comment on above: Performed By: #### L 501.9520, L500.4050, L500.4100, L506.1000, L503.0105, L100.0100, L506.0400, L501.9186 #### [facility] [address] [place], [address] Neutrophils/100 WBC (Bld) 45.8 % Low 47-70 [facility] Comment on above: Performed By: #### L 501.9520, L500.4050, L500.4100, L506.1000, L503.0105, L100.0100, L506.0400, L501.9186 #### [facility] [address] [place], [address] Nucleated RBC (Bld) [#/Vol] 0 10*3/uL Normal 0-5 [facility] Comment on above: Performed By: #### L 501.9520, L500.4050, L500.4100, L506.1000, L503.0105, L100.0100, L506.0400, L501.9186 #### [facility] [address] [place], [address] Platelet mean volume (Bld) [Entitic vol] 10.4 fL Normal 6.2-12.0 [facility] Comment on above: Performed By: #### L 501.9520, L500.4050, L500.4100, L506.1000, L503.0105, L100.0100, L506.0400, L501.9186 #### [facility] [address] [place], [address] Platelets (Bld) [#/Vol] 294 10*3/uL Normal 150-450 [facility] Comment on above: Performed By: #### L 501.9520, L500.4050, L500.4100, L506.1000, L503.0105, L100.0100, L506.0400, L501.9186 #### [facility] [address] [place], [address] RBC (Bld) [#/Vol] 4.54 10*6/uL Normal 4.2-5.4 [facility] Comment on above: Performed By: #### L 501.9520, L500.4050, L500.4100, L506.1000, L503.0105, L100.0100, L506.0400, L501.9186 #### [facility] [address] [place], [place], [id number] (892) RDW SD 43.8 fl Normal 35.1-43.9 [facility] Comment on above: Performed By: #### L 501.9520, L500.4050, L500.4100, L506.1000, L503.0105, L100.0100, L506.0400, L501.9186 #### [facility] [address] [place], [place], [id number] WBC (Bld) [#/Vol] 5.9 10*3/uL Normal 4.4-11.[address] [facility] Comment on above: Performed By: #### L 501.9520, L500.4050, L500.4100, L506.1000, L503.0105, L100.0100, L506.0400, L501.9186 #### [facility] [address] [place], [place], [id number] Comprehensive Metabolic Prof [facility] 04-18-2024 Albumin [Mass/Vol] 4.0 g/dL Normal 3.2-5.[address] [facility] Comment on above: Performed By: #### L 501.9520, L500.4050, L500.4100, L506.1000, L503.0105, L100.0100, L506.0400, L501.9186 #### [facility] [address] [place], [place], [id number] Albumin/Globulin [Mass ratio] 1.2 {ratio} Normal 0.9-2.4 [facility] Comment on above: Performed By: #### L 501.9520, L500.4050, L500.4100, L506.1000, L503.0105, L100.0100, L506.0400, L501.9186 #### [facility] [address] [place], [address] ALK P 46 U/L Normal 45-117 [facility] Comment on above: Performed By: #### L 501.9520, L500.4050, L500.4100, L506.1000, L503.0105, L100.0100, L506.0400, L501.9186 #### [facility] [address] [place], [address] ALT [Catalytic activity/Vol] 57 U/L High 13-56 [facility] Comment on above: Performed By: #### L 501.9520, L500.4050, L500.4100, L506.1000, L503.0105, L100.0100, L506.0400, L501.9186 #### [facility] [address] [place], [address] AST [Catalytic activity/Vol] 33 U/L Normal 15-37 [facility] Comment on above: Performed By: #### L 501.9520, L500.4050, L500.4100, L506.1000, L503.0105, L100.0100, L506.0400, L501.9186 #### [facility] [address] [place], [address] Bilirubin [Mass/Vol] 0.50 mg/dL Normal 0.20-1.00 [facility] Comment on above: Result Comment: For patients on eltrombopag therapy, use of Dimension Freedom TBIL is not recommended. Performed By: #### L 501.9520, L500.4050, L500.4100, L506.1000, L503.0105, L100.0100, L506.0400, L501.9186 #### [facility] [address] [place], [address] BUN/CRE 14.1 RATIO Normal 10-20 [facility] Comment on above: Performed By: #### L 501.9520, L500.4050, L500.4100, L506.1000, L503.0105, L100.0100, L506.0400, L501.9186 #### [facility] [address] [place], [address] CA,Total 8.6 mg/dL Normal 8.5-10.1 [facility] Comment on above: Performed By: #### L 501.9520, L500.4050, L500.4100, L506.1000, L503.0105, L100.0100, L506.0400, L501.9186 #### [facility] [address] [place], [address] Chloride [Moles/Vol] 108 mmol/L High 98-107 [facility] Comment on above: Performed By: #### L 501.9520, L500.4050, L500.4100, L506.1000, L503.0105, L100.0100, L506.0400, L501.9186 #### [facility] [address] [place], [address] CO2 [Moles/Vol] 28.0 mmol/L Normal 21.0-32.0 [facility] Comment on above: Performed By: #### L 501.9520, L500.4050, L500.4100, L506.1000, L503.0105, L100.0100, L506.0400, L501.9186 #### [facility] [address] [place], [address] Creatinine [Mass/Vol] 0.64 mg/dL Normal 0.55-1.02 [facility] Comment on above: Result Comment: The validity of the calculated GFR GFRAA in patients over 70 years has not been determined. Clinical correlation is essential. Performed By: #### L 501.9520, L500.4050, L500.4100, L506.1000, L503.0105, L100.0100, L506.0400, L501.9186 #### [facility] [address] [place], [place], [id number] EST GFR - AA 124 mL/min Normal >60 [facility] Comment on above: Result Comment: Afri can Citizen [place] GFR Calc Performed By: #### L 501.9520, L500.4050, L500.4100, L506.1000, L503.0105, L100.0100, L506.0400, L501.9186 #### [facility] [address] [place], [address] GAP 3 Low 5-15 [facility] Comment on above: Performed By: #### L 501.9520, L500.4050, L500.4100, L506.1000, L503.0105, L100.0100, L506.0400, L501.9186 #### [facility] [address] [place], [address] GFR/1.73 sq M.predicted among non-blacks MDRD (S/P/Bld) [Vol rate/Area] 102 mL/min/{1.73_m2} Normal >60 [facility] Comment on above: Result Comment: Non- GFR Calc Performed By: #### L 501.9520, L500.4050, L500.4100, L506.1000, L503.0105, L100.0100, L506.0400, L501.9186 #### [facility] [address] [place], [address] Globulin (S) [Mass/Vol] 3.2 g/dL Normal 2.2-4.2 [facility] Comment on above: Performed By: #### L 501.9520, L500.4050, L500.4100, L506.1000, L503.0105, L100.0100, L506.0400, L501.9186 #### [facility] [address] [place], [address] Glucose [Mass/Vol] 110 mg/dL High 74-[address] [facility] Comment on above: Result Comment: Fast ing Glucose result from 100 to 125 mg/dL suggests IMPAIRED HOMEOSTASIS per A.D.A. criteria. Performed By: #### L 501.9520, L500.4050, L500.4100, L506.1000, L503.0105, L100.0100, L506.0400, L501.9186 #### [facility] [address] [place], [address] Potassium [Moles/Vol] 3.6 mmol/L Normal 3.5-5.1 [facility] Comment on above: Performed By: #### L 501.9520, L500.4050, L500.4100, L506.1000, L503.0105, L100.0100, L506.0400, L501.9186 #### [facility] [address] [place], [address] Sodium [Moles/Vol] 139 mmol/L Normal 136-[address] [facility] Comment on above: Performed By: #### L 501.9520, L500.4050, L500.4100, L506.1000, L503.0105, L100.0100, L506.0400, L501.9186 #### [facility] [address] [place], [address] T PROT 7.2 g/dL Normal 6.4-8.2 [facility] Comment on above: Performed By: #### L 501.9520, L500.4050, L500.4100, L506.1000, L503.0105, L100.0100, L506.0400, L501.9186 #### [facility] [address] [place], [address] Urea nitrogen [Mass/Vol] 9 mg/dL Normal 7-18 [facility] Comment on above: Performed By: #### L 501.9520, L500.4050, L500.4100, L506.1000, L503.0105, L100.0100, L506.0400, L501.9186 #### [facility] [address] [place], [address] Lipid Profileon 04-18-2024 Cholesterol [Mass/Vol] 168 mg/dL Normal 200 [facility] Comment on above: Result Comment: <200 mg/dL Desirable 200-240 mg/dL Borderline >240 mg/dL High Risk Performed By: #### L 501.9520, L500.4050, L500.4100, L506.1000, L503.0105, L100.0100, L506.0400, L501.9186 #### [facility] [address] [place], [address] Cholesterol in HDL [Mass/Vol] 60 mg/dL Normal [facility] Comment on above: Result Comment: The drugs N-Acetylcysteine and Metamizole may falsely depress this assay. Reference Range HDL <40 mg/dL Low HDL Cholesterol HDL >or= 60 mg/dL High HDL Cholesterol Performed By: #### L 501.9520, L500.4050, L500.4100, L506.1000, L503.0105, L100.0100, L506.0400, L501.9186 #### [facility] [address] [place], [address] Cholesterol in LDL [Mass/Vol] 72 mg/dL Normal 0-130 [facility] Comment on above: Performed By: #### L 501.9520, L500.4050, L500.4100, L506.1000, L503.0105, L100.0100, L506.0400, L501.9186 #### [facility] [address] [place], [address] Cholesterol in VLDL [Mass/Vol] 36 mg/dL Normal 5-40 [facility] Comment on above: Performed By: #### L 501.9520, L500.4050, L500.4100, L506.1000, L503.0105, L100.0100, L506.0400, L501.9186 #### [facility] [address] [place], [place], [id number] Triglyceride [Mass/Vol] 178 mg/dL Normal [facility] Comment on above: Result Comment: The drugs N-Acetylcysteine and Metamizole may falsely depress this assay. Serum Triglycerides Reference Interval Normal <150 mg/dL Borderline high 150 - 199 mg/dL High 200 - 499 mg/dL Very High > or = 500 mg/dL Performed By: #### L 501.9520, L500.4050, L500.4100, L506.1000, L503.0105, L100.0100, L506.0400, L501.9186 #### [facility] [address] [place], [place], [id number] T3 Total - Triiodothyronineo n 04-18-2024 T3 Total 1.13 ng/mL Normal 0.6-1.81 [facility] Comment on above: Performed By: #### L 501.9520, L500.4050, L500.4100, L506.1000, L503.0105, L100.0100, L506.0400, L501.9186 #### [facility] [address] [place], [place], [address] T4 Free Directon 04-18-2024 T4 FREE DIRECT 0.62 ng/dL Low 0.76-1.46 [facility] Comment on above: Performed By: #### L 501.9520, L500.4050, L500.4100, L506.1000, L503.0105, L100.0100, L506.0400, L501.9186 #### [facility] [address] [place], [place], [id number] Thyroid Stim Hormone (TSH)on 04-18-2024 TSH 1.880 uIU/mL Normal 0.358-3.740 [facility] Comment on above: Performed By: #### L 501.9520, L500.4050, L500.4100, L506.1000, L503.0105, L100.0100, L506.0400, L501.9186 #### [facility] [address] [place], [place], [id number] Vitamin D,25 Hydroxyon 04-18 Vitamin D 25-OH 51.4 ng/mL Normal [facility] Comment on above: Result Comment: Corrina min D 25(OH) Status Range Deficiency <20 ng/mL (50nmol/L) Insufficiency 20 - 30 ng/mL (50 - 75 nmol/L) Sufficiency 30 - 100 ng/mL (75 - 250 nmol/L) Toxicity >100 ng/mL (>250 nmol/L) Performed By: #### L 501.9520, L500.4050, L500.4100, L506.1000, L503.0105, L100.0100, L506.0400, L501.9186 #### [facility] [address] [place], [place], [id number] CBC W/Diff, Automatedon 05- Absolute Lymph 3.07 X10 3/uL Normal 0.83-4.51 [facility] Comment on above: Performed By: #### L 501.9520, L500.4050, L500.4100, L506.1000, L503.0105, L100.0100, L506.0400, L501.9186 #### [facility] [address] [place], [place], [id number] Absolute Neut 2.3 X10 3/uL Normal 2.0-7.7 [facility] Comment on above: Performed By: #### L 501.9520, L500.4050, L500.4100, L506.1000, L503.0105, L100.0100, L506.0400, L501.9186 #### [facility] [address] [place], [address] Basophils/100 WBC (Bld) 0.8 % Normal 0-1 [facility] Comment on above: Performed By: #### L 501.9520, L500.4050, L500.4100, L506.1000, L503.0105, L100.0100, L506.0400, L501.9186 #### [facility] [address] [place], [address] Eosinophils/100 WBC (Bld) 1.5 % Normal 0-5 [facility] Comment on above: Performed By: #### L 501.9520, L500.4050, L500.4100, L506.1000, L503.0105, L100.0100, L506.0400, L501.9186 #### [facility] [address] [place], [address] Erythrocyte distribution width (RBC) [Ratio] 14.0 % Normal 11.6-14.6 [facility] Comment on above: Performed By: #### L 501.9520, L500.4050, L500.4100, L506.1000, L503.0105, L100.0100, L506.0400, L501.9186 #### [facility] [address] [place], [address] Hematocrit (Bld) [Volume fraction] 37.1 % Normal 37-47 [facility] Comment on above: Performed By: #### L 501.9520, L500.4050, L500.4100, L506.1000, L503.0105, L100.0100, L506.0400, L501.9186 #### [facility] [address] [place], [address] Hemoglobin (Bld) [Mass/Vol] 11.9 g/dL Low 12.0-15.0 [facility] Comment on above: Performed By: #### L 501.9520, L500.4050, L500.4100, L506.1000, L503.0105, L100.0100, L506.0400, L501.9186 #### [facility] [address] [place], [address] IG% 0.200 Normal 0.0-0.9 [facility] Comment on above: Result Comment: IG% - Immature Granulocytes (promyelocytes, myelocytes and metamyelocytes) > 1% indicates that a LEFT SHIFT is Present. Performed By: #### L 501.9520, L500.4050, L500.4100, L506.1000, L503.0105, L100.0100, L506.0400, L501.9186 #### [facility] [address] [place], [address] Lymphocytes/100 WBC (Bld) 51.8 % High 19-41 [facility] Comment on above: Performed By: #### L 501.9520, L500.4050, L500.4100, L506.1000, L503.0105, L100.0100, L506.0400, L501.9186 #### [facility] [address] [place], [address] MCH (RBC) [Entitic mass] 29.0 pg Normal 27.0-32.0 [facility] Comment on above: Performed By: #### L 501.9520, L500.4050, L500.4100, L506.1000, L503.0105, L100.0100, L506.0400, L501.9186 #### [facility] [address] [place], [address] MCHC (RBC) [Mass/Vol] 32.1 g/dL Normal 32-36 [facility] Comment on above: Performed By: #### L 501.9520, L500.4050, L500.4100, L506.1000, L503.0105, L100.0100, L506.0400, L501.9186 #### [facility] [address] [place], [address] MCV (RBC) [Entitic vol] 90.3 fL Normal 81-99 [facility] Comment on above: Performed By: #### L 501.9520, L500.4050, L500.4100, L506.1000, L503.0105, L100.0100, L506.0400, L501.9186 #### [facility] [address] [place], [address] Monocytes/100 WBC (Bld) 7.8 % Normal 0-10 [facility] Comment on above: Performed By: #### L 501.9520, L500.4050, L500.4100, L506.1000, L503.0105, L100.0100, L506.0400, L501.9186 #### [facility] [address] [place], [address] Neutrophils/100 WBC (Bld) 37.9 % Low 47-70 [facility] Comment on above: Performed By: #### L 501.9520, L500.4050, L500.4100, L506.1000, L503.0105, L100.0100, L506.0400, L501.9186 #### [facility] [address] [place], [address] Nucleated RBC (Bld) [#/Vol] 0 10*3/uL Normal 0-5 [facility] Comment on above: Performed By: #### L 501.9520, L500.4050, L500.4100, L506.1000, L503.0105, L100.0100, L506.0400, L501.9186 #### [facility] [address] [place], [address] Platelet mean volume (Bld) [Entitic vol] 10.9 fL Normal 6.2-12.0 [facility] Comment on above: Performed By: #### L 501.9520, L500.4050, L500.4100, L506.1000, L503.0105, L100.0100, L506.0400, L501.9186 #### [facility] [address] [place], [address] Platelets (Bld) [#/Vol] 283 10*3/uL Normal 150-450 [facility] Comment on above: Performed By: #### L 501.9520, L500.4050, L500.4100, L506.1000, L503.0105, L100.0100, L506.0400, L501.9186 #### [facility] [address] [place], [address] RBC (Bld) [#/Vol] 4.11 10*6/uL Low 4.2-5.4 [facility] Comment on above: Performed By: #### L 501.9520, L500.4050, L500.4100, L506.1000, L503.0105, L100.0100, L506.0400, L501.9186 #### [facility] [address] [place], [address] RDW SD 46.3 fl High 35.1-43.9 [facility] Comment on above: Performed By: #### L 501.9520, L500.4050, L500.4100, L506.1000, L503.0105, L100.0100, L506.0400, L501.9186 #### [facility] [address] [place], [address] WBC (Bld) [#/Vol] 5.9 10*3/uL Normal 4.4-11.[address] [facility] Comment on above: Performed By: #### L 501.9520, L500.4050, L500.4100, L506.1000, L503.0105, L100.0100, L506.0400, L501.9186 #### [facility] [address] [place], [address] Comprehensive Metabolic Prof ilon 10-12-2023 Albumin [Mass/Vol] 3.7 g/dL Normal 3.2-5.[address] [facility] Comment on above: Performed By: #### L 501.9520, L500.4050, L500.4100, L506.1000, L503.0105, L100.0100, L506.0400, L501.9186 #### [facility] [address] [place], [address] Albumin/Globulin [Mass ratio] 1.2 {ratio} Normal 0.9-2.4 [facility] Comment on above: Performed By: #### L 501.9520, L500.4050, L500.4100, L506.1000, L503.0105, L100.0100, L506.0400, L501.9186 #### [facility] [address] [place], [address] ALK P 55 U/L Normal 45-117 [facility] Comment on above: Performed By: #### L 501.9520, L500.4050, L500.4100, L506.1000, L503.0105, L100.0100, L506.0400, L501.9186 #### [facility] [address] [place], [address] ALT [Catalytic activity/Vol] 75 U/L High 13-56 [facility] Comment on above: Performed By: #### L 501.9520, L500.4050, L500.4100, L506.1000, L503.0105, L100.0100, L506.0400, L501.9186 #### [facility] [address] [place], [address] AST [Catalytic activity/Vol] 54 U/L High 15-37 [facility] Comment on above: Performed By: #### L 501.9520, L500.4050, L500.4100, L506.1000, L503.0105, L100.0100, L506.0400, L501.9186 #### [facility] [address] [place], [address] Bilirubin [Mass/Vol] 0.40 mg/dL Normal 0.20-1.00 [facility] Comment on above: Result Comment: For patients on eltrombopag therapy, use of Dimension Freedom TBIL is not recommended. Performed By: #### L 501.9520, L500.4050, L500.4100, L506.1000, L503.0105, L100.0100, L506.0400, L501.9186 #### [facility] [address] [place], [address] BUN/CRE 13.8 RATIO Normal 10-20 [facility] Comment on above: Performed By: #### L 501.9520, L500.4050, L500.4100, L506.1000, L503.0105, L100.0100, L506.0400, L501.9186 #### [facility] [address] [place], [address] CA,Total 8.7 mg/dL Normal 8.5-10.1 [facility] Comment on above: Performed By: #### L 501.9520, L500.4050, L500.4100, L506.1000, L503.0105, L100.0100, L506.0400, L501.9186 #### [facility] [address] [place], [address] Chloride [Moles/Vol] 110 mmol/L High 98-107 [facility] Comment on above: Performed By: #### L 501.9520, L500.4050, L500.4100, L506.1000, L503.0105, L100.0100, L506.0400, L501.9186 #### [facility] [address] [place], [address] CO2 [Moles/Vol] 29.0 mmol/L Normal 21.0-32.0 [facility] Comment on above: Performed By: #### L 501.9520, L500.4050, L500.4100, L506.1000, L503.0105, L100.0100, L506.0400, L501.9186 #### [facility] [address] [place], [address] Creatinine [Mass/Vol] 0.73 mg/dL Normal 0.55-1.02 [facility] Comment on above: Result Comment: The validity of the calculated GFR GFRAA in patients over 70 years has not been determined. Clinical correlation is essential. Performed By: #### L 501.9520, L500.4050, L500.4100, L506.1000, L503.0105, L100.0100, L506.0400, L501.9186 #### [facility] [address] [place], [address] EST GFR - AA 107 mL/min Normal >60 [facility] Comment on above: Result Comment: Afri can Citizen Of [place] GFR Calc Performed By: #### L 501.9520, L500.4050, L500.4100, L506.1000, L503.0105, L100.0100, L506.0400, L501.9186 #### [facility] [address] [place], [address] GAP 2 Low 5-15 [facility] Comment on above: Performed By: #### L 501.9520, L500.4050, L500.4100, L506.1000, L503.0105, L100.0100, L506.0400, L501.9186 #### [facility] [address] [place], [address] GFR/1.73 sq M.predicted among non-blacks MDRD (S/P/Bld) [Vol rate/Area] 88 mL/min/{1.73_m2} Normal >60 [facility] Comment on above: Result Comment: Non- GFR Calc Performed By: #### L 501.9520, L500.4050, L500.4100, L506.1000, L503.0105, L100.0100, L506.0400, L501.9186 #### [facility] [address] [place], [address] Globulin (S) [Mass/Vol] 3.0 g/dL Normal 2.2-4.2 [facility] Comment on above: Performed By: #### L 501.9520, L500.4050, L500.4100, L506.1000, L503.0105, L100.0100, L506.0400, L501.9186 #### [facility] [address] [place], [address] Glucose [Mass/Vol] 101 mg/dL Normal 74-[address] [facility] Comment on above: Result Comment: Fast ing Glucose result from 100 to 125 mg/dL suggests IMPAIRED HOMEOSTASIS per A.D.A. criteria. Performed By: #### L 501.9520, L500.4050, L500.4100, L506.1000, L503.0105, L100.0100, L506.0400, L501.9186 #### [facility] [address] [place], [address] Potassium [Moles/Vol] 3.6 mmol/L Normal 3.5-5.1 [facility] Comment on above: Performed By: #### L 501.9520, L500.4050, L500.4100, L506.1000, L503.0105, L100.0100, L506.0400, L501.9186 #### [facility] [address] [place], [id number] Sodium [Moles/Vol] 141 mmol/L Normal 136-[address] [facility] Comment on above: Performed By: #### L 501.9520, L500.4050, L500.4100, L506.1000, L503.0105, L100.0100, L506.0400, L501.9186 #### [facility] [address] [place], [place], [id number] T PROT 6.7 g/dL Normal 6.4-8.2 [facility] Comment on above: Performed By: #### L 501.9520, L500.4050, L500.4100, L506.1000, L503.0105, L100.0100, L506.0400, L501.9186 #### [facility] [address] [place], [place], [id number] Urea nitrogen [Mass/Vol] 10 mg/dL Normal 7-18 [facility] Comment on above: Performed By: #### L 501.9520, L500.4050, L500.4100, L506.1000, L503.0105, L100.0100, L506.0400, L501.9186 #### [facility] [address] [place], [place], [id number] Lipid Profileon 10-12-2023 Cholesterol [Mass/Vol] 122 mg/dL Normal 200 [facility] Comment on above: Result Comment: <200 mg/dL Desirable 200-240 mg/dL Borderline >240 mg/dL High Risk Performed By: #### L 501.9520, L500.4050, L500.4100, L506.1000, L503.0105, L100.0100, L506.0400, L501.9186 #### [facility] [address] [place], [address] Cholesterol in HDL [Mass/Vol] 58 mg/dL Normal [facility] Comment on above: Result Comment: The drugs N-Acetylcysteine and Metamizole may falsely depress this assay. Reference Range HDL <40 mg/dL Low HDL Cholesterol HDL >or= 60 mg/dL High HDL Cholesterol Performed By: #### L 501.9520, L500.4050, L500.4100, L506.1000, L503.0105, L100.0100, L506.0400, L501.9186 #### [facility] [address] [place], [address] Cholesterol in LDL [Mass/Vol] 41 mg/dL Normal 0-130 [facility] Comment on above: Performed By: #### L 501.9520, L500.4050, L500.4100, L506.1000, L503.0105, L100.0100, L506.0400, L501.9186 #### [facility] [address] [place], [address] Cholesterol in VLDL [Mass/Vol] 23 mg/dL Normal 5-40 [facility] Comment on above: Performed By: #### L 501.9520, L500.4050, L500.4100, L506.1000, L503.0105, L100.0100, L506.0400, L501.9186 #### [facility] [address] [place], [address] Triglyceride [Mass/Vol] 117 mg/dL Normal [facility] Comment on above: Result Comment: The drugs N-Acetylcysteine and Metamizole may falsely depress this assay. Serum Triglycerides Reference Interval Normal <150 mg/dL Borderline high 150 - 199 mg/dL High 200 - 499 mg/dL Very High > or = 500 mg/dL Performed By: #### L 501.9520, L500.4050, L500.4100, L506.1000, L503.0105, L100.0100, L506.0400, L501.9186 #### [facility] [address] [place], [address] T4 Free Directon 10-12-2023 T4 FREE DIRECT 0.76 ng/dL Normal 0.76-1.46 [facility] Comment on above: Performed By: #### L 501.9520, L500.4050, L500.4100, L506.1000, L503.0105, L100.0100, L506.0400, L501.9186 #### [facility] [address] [place], [address] Thyroid Stim Hormone (TSH)on 10-12-2023 TSH 2.13 uIU/mL Normal 0.358-3.74 [facility] Comment on above: Performed By: #### L 501.9520, L500.4050, L500.4100, L506.1000, L503.0105, L100.0100, L506.0400, L501.9186 #### [facility] [address] [place], [address] Vitamin B12on 10-12-2023 Cobalamin (Vitamin B12) [Mass/Vol] 582 pg/mL Normal 211-911 [facility] Comment on above: Performed By: #### L 501.9520, L500.4050, L500.4100, L506.1000, L503.0105, L100.0100, L506.0400, L501.9186 #### [facility] [address] [place], [address] Vitamin D,25 Hydroxyon 10-11 Vitamin D 25-OH 72.2 ng/mL Normal [facility] Comment on above: Result Comment: Corrina min D 25(OH) Status Range Deficiency <20 ng/mL (50nmol/L) Insufficiency 20 - 30 ng/mL (50 - 75 nmol/L) Sufficiency 30 - 100 ng/mL (75 - 250 nmol/L) Toxicity >100 ng/mL (>250 nmol/L) Performed By: #### L 501.9520, L500.4050, L500.4100, L506.1000, L503.0105, L100.0100, L506.0400, L501.9186 #### [facility] [address] [place], [address] Lyme Antibodies,W Bloton LYME IgG INTERP Negative Normal . [facility] Comment on above: Result Comment: Posi tive: 5 of the following Borrelia-specific bands: 18,23,28,30,39,41,45,58, 66, and 93. Negative: No bands or banding patterns which do not meet positive criteria. Performed By: #### L 501.9520, L500.4050, L500.4100, L506.1000, L503.0105, L100.0100, L506.0400, L501.9186 #### [facility] [address] [place], [address] LYME IgM INTERP Negative Normal . [facility] Comment on above: Result Comment: Note : An equivocal or positive EIA result followed by a negative Line Blot result is considered NEGATIVE. An equivocal or positive EIA result followed by a positive Line Blot is considered POSITIVE by the CDC. Positive: 2 of the following bands: 23,39 or 41 Negative: No bands or banding patterns which do not meet positive criteria. Criteria for positivity are those recommended by CDC/ASTPHLD. p23=Osp C, n28=[id number] Note: Sera from individuals with the following may cross react in the Lyme Line Blot assays: other spirochetal diseases (periodontal disease, leptospirosis, relapsing fever, yaws, and pinta); connective autoimmune (Rheumatoid Arthritis and Systemic Lupus Erythematosus and also individuals with Antinuclear Antibody); other infections ([place] Spotted Fever; Maninder-Segovia Virus, and Cytomegalovirus). Please Note: Lyme immunoblot alone is not recommended for the diagnosis of Lyme disease. Current guidelines recommend the use of a two-tiered approach to Lyme serology testing to improve the sensitivity and specificity of testing. [facility] 174757 Lyme Disease Serology with Reflex to aid in the diagnosis of Lyme Disease. Performed at: - [address] [id number] Nuclear Chemistry Technician: Brittni Gracia MD, Phone: [phone] Performed By: #### L 501.9520, L500.4050, L500.4100, L506.1000, L503.0105, L100.0100, L506.0400, L501.9186 #### [facility] [address] [place], [address] P18 Ab Absent Normal . [facility] Comment on above: Performed By: #### L 501.9520, L500.4050, L500.4100, L506.1000, L503.0105, L100.0100, L506.0400, L501.9186 #### [facility] [address] [place], [address] P23 Ab Absent Normal . [facility] Comment on above: Performed By: #### L 501.9520, L500.4050, L500.4100, L506.1000, L503.0105, L100.0100, L506.0400, L501.9186 #### [facility] [address] [place], [address] P28 Ab Absent Normal . [facility] Comment on above: Performed By: #### L 501.9520, L500.4050, L500.4100, L506.1000, L503.0105, L100.0100, L506.0400, L501.9186 #### [facility] [address] [place], [address] P30 Ab Absent Normal . [facility] Comment on above: Performed By: #### L 501.9520, L500.4050, L500.4100, L506.1000, L503.0105, L100.0100, L506.0400, L501.9186 #### [facility] [address] [place], [address] P39 Ab Absent Normal . [facility] Comment on above: Performed By: #### L 501.9520, L500.4050, L500.4100, L506.1000, L503.0105, L100.0100, L506.0400, L501.9186 #### [facility] [address] [place], [facility] P41 Ab Absent Normal . [facility] Comment on above: Performed By: #### L 501.9520, L500.4050, L500.4100, L506.1000, L503.0105, L100.0100, L506.0400, L501.9186 #### [facility] [address] [place], [facility] P45 Ab Absent Normal . [facility] Comment on above: Performed By: #### L 501.9520, L500.4050, L500.4100, L506.1000, L503.0105, L100.0100, L506.0400, L501.9186 #### [facility] [address] [place], [facility] P58 Ab Absent Normal . [facility] Comment on above: Performed By: #### L 501.9520, L500.4050, L500.4100, L506.1000, L503.0105, L100.0100, L506.0400, L501.9186 #### [facility] [address] [place], [facility] P66 Ab Absent Normal . [facility] Comment on above: Performed By: #### L 501.9520, L500.4050, L500.4100, L506.1000, L503.0105, L100.0100, L506.0400, L501.9186 #### [facility] [address] [place], [address] P93 Ab Absent Normal . [facility] Comment on above: Performed By: #### L 501.9520, L500.4050, L500.4100, L506.1000, L503.0105, L100.0100, L506.0400, L501.9186 #### [facility] [address] [place], [address] Absolute lymphocyte countOrd ered By: Diann Del Cid on 09-02-2023 Lymphocytes Auto (Unsp spec) [#/Vol] 1.39 10*3/uL 0.83-4.51 [facility] Automated lymphocyte count a s percentage of total leukocytesOrdered By: Diann Del Cid on 09-02-2023 Lymphocytes/100 WBC Auto (Unsp spec) 10.8 % 19-41 [facility] Basophil percentageOrdered B y: Diann Del Cid on 09-02-2023 Basophils/100 WBC (Bld) 0.2 % 0-1 [facility] Eosinophils/100 WBC (Bld) 0.1 % 0-5 [facility] Hemoglobin (Bld) [Mass/Vol] 11.8 g/dL 12.0-15.0 [facility] Monocytes/100 WBC (Bld) 4.2 % 0-10 [facility] Neutrophils (Bld) [#/Vol] 10.9 10*3/uL 2.0-7.7 [facility] Neutrophils/100 WBC (Bld) 84.3 % 47-70 [facility] WBC (Bld) [#/Vol] 12.9 10*3/uL 4.4-11.0 [facility] CBC W/Diff, Automatedon Absolute Lymph 1.39 X10 3/uL Normal 0.83-4.51 [facility] Comment on above: Performed By: #### L 100.0100, M100.638, L7000.5800 #### [facility] [address] [place], [address] Absolute Neut 10.9 X10 3/uL High 2.0-7.7 [facility] Comment on above: Performed By: #### L 100.0100, M100.638, L7000.5800 #### [facility] [address] [place], [address] Basophils/100 WBC (Bld) 0.2 % Normal 0-1 [facility] Comment on above: Performed By: #### L 100.0100, M100.638, L7000.5800 #### [facility] [address] [place], [address] Eosinophils/100 WBC (Bld) 0.1 % Normal 0-5 [facility] Comment on above: Performed By: #### L 100.0100, M100.638, L7000.5800 #### [facility] [address] [place] [place], [address] Erythrocyte distribution width (RBC) [Ratio] 14.4 % Normal 11.6-14.6 [facility] Comment on above: Performed By: #### L 100.0100, M100.638, L7000.5800 #### [facility] [address] [place], [address] Hematocrit (Bld) [Volume fraction] 33.4 % Low 37-47 [facility] Comment on above: Performed By: #### L 100.0100, M100.638, L7000.5800 #### [facility] [address] [place], [address] Hemoglobin (Bld) [Mass/Vol] 11.8 g/dL Low 12.0-15.0 [facility] Comment on above: Performed By: #### L 100.0100, M100.638, L7000.5800 #### [facility] [address] [place], [address] IG% 0.400 Normal 0.0-0.9 [facility] Comment on above: Result Comment: IG% - Immature Granulocytes (promyelocytes, myelocytes and metamyelocytes) > 1% indicates that a LEFT SHIFT is Present. Performed By: #### L 100.0100, M100.638, L7000.5800 #### [facility] [address] [place], [address] Lymphocytes/100 WBC (Bld) 10.8 % Low 19-41 [facility] Comment on above: Performed By: #### L 100.0100, M100.638, L7000.5800 #### [facility] [address] [place], [address] MCH (RBC) [Entitic mass] 32.4 pg High 27.0-32.0 [facility] Comment on above: Performed By: #### L 100.0100, M100.638, L7000.5800 #### [facility] [address] [place], [address] MCHC (RBC) [Mass/Vol] 35.3 g/dL Normal 32-36 [facility] Comment on above: Performed By: #### L 100.0100, M100.638, L7000.5800 #### [facility] [address] [place], [address] MCV (RBC) [Entitic vol] 91.8 fL Normal 81-99 [facility] Comment on above: Performed By: #### L 100.0100, M100.638, L7000.5800 #### [facility] [address] [place], [address] Monocytes/100 WBC (Bld) 4.2 % Normal 0-10 [facility] Comment on above: Performed By: #### L 100.0100, M100.638, L7000.5800 #### [facility] [address] [place], [address] Neutrophils/100 WBC (Bld) 84.3 % High 47-70 [facility] Comment on above: Performed By: #### L 100.0100, M100.638, L7000.5800 #### [facility] [address] [place], [address] Nucleated RBC (Bld) [#/Vol] 0 10*3/uL Normal 0-5 [facility] Comment on above: Performed By: #### L 100.0100, M100.638, L7000.5800 #### [facility] [address] [place], [address] Platelet mean volume (Bld) [Entitic vol] 10.6 fL Normal 6.2-12.0 [facility] Comment on above: Performed By: #### L 100.0100, M100.638, L7000.5800 #### [facility] [address] [place], [address] Platelets (Bld) [#/Vol] 260 10*3/uL Normal 150-450 [facility] Comment on above: Performed By: #### L 100.0100, M100.638, L7000.5800 #### [facility] [address] [place], [address] RBC (Bld) [#/Vol] 3.64 10*6/uL Low 4.2-5.4 [facility] Comment on above: Performed By: #### L 100.0100, M100.638, L7000.5800 #### [facility] [address] [place], [address] RDW SD 46.6 fl High 35.1-43.9 [facility] Comment on above: Performed By: #### L 100.0100, M100.638, L7000.5800 #### [facility] [address] [place], [address] WBC (Bld) [#/Vol] 12.9 10*3/uL High 4.4-11.0 [facility] Comment on above: Performed By: #### L 100.0100, M100.638, L7000.5800 #### [facility] [address] [place], [place], [id number] Determination of erythrocyte mean corpuscular volume (MCV)Ordered By: Diannblaine Del Cid on 09-02-2023 MCV (RBC) [Entitic vol] 91.8 fL 81-99 [facility] Erythrocyte distribution wid th ratioOrdered By: [facility]-2023 Erythrocyte distribution width (RBC) [Ratio] 14.4 % 11.6-14.6 [facility] Erythrocyte distribution wid th standard deviationOrdered By: [facility] on 09-02-2023 Erythrocyte distribution width (RBC) [Entitic vol] 46.6 fL 35.1-43.9 [facility] Hematocrit Auto (Bld) [Volum e fraction]Ordered By: [facility] on 09-02-2023 Hematocrit (Bld) [Volume fraction] 33.4 % 37-47 [facility] Immature granulocytes/100 WB C Auto (Bld)Ordered By: [facility] on 09-02-2023 Immature granulocytes/100 WBC (Bld) 0.400 % 0.0-0.9 [facility] Comment on above: IG% - Immature Granu locytes (promyelocytes, myelocytes and metamyelocytes) > 1% indicates that a LEFT SHIFT is Present. Laboratory - Hematology and Cell countsOrdered By: [facility] on 09-02-2023 MCH (RBC) [Entitic mass] 32.4 pg 27.0-32.0 [facility] MCHC (RBC) [Mass/Vol] 35.3 g/dL 32-36 [facility] Nucleated RBC/100 WBC (Bld) [Ratio] 0 % 0-5 [facility] Platelet mean volume (Bld) [Entitic vol] 10.6 fL 6.2-12.0 [facility] Platelets (Bld) [#/Vol] 260 10*3/uL 150-450 [facility] RBC Auto (Bld) [#/Vol]Ordere d By: Diann Davisgar on 09-02-2023 RBC (Bld) [#/Vol] 3.64 10*6/uL 4.2-5.4 [facility] RESPIRATORY PANEL MOLECULARo n 09-02-2023 RP PANEL Normal Reference Ran ge = Not Detected Resp path DNA+RNA Pnl Resp KYLEIGH+probe Nucleic acid amplification test method ADENOVIRUS Not Detected INFLUENZA A Not Detected INFLUENZA A (SUBTYPE H1) Not Detected INFLUENZA A (SUBTYPE H3) Not Detected INFLUENZA B Not Detected HUMAN METAPHNEUMO Not Detected PARAINFLUENZA 1 Not Detected PARAINFLUENZA 2 Not Detected PARAINFLUENZA 3 Not Detected PARAINFLUENZA 4 Not Detected RHINOVIRUS Not Detected RSV A Not Detected RSV B Not Detected Normal [facility] Comment on above: Performed By: #### L 100.0100, M100.638, L7000.5800 #### [facility] [address] [place], [place], [id number] Respiratory pathogens detect ion panel by molecular detection methodOrdered By: Diann Del Cid on 09-02-2023 Respiratory pathogens DNA and RNA panel KYLEIGH+probe (Resp) [facility] GROUP A STREPTOCOCCUS BY PCR on 09-01-2023 S. pyogenes DNA KYLEIGH+probe Ql (Throat) Detected Abnormal Not detected [facility] RAPID GROUP A STREP RFLX TO PCRon 09-01-2023 S. pyogenes Ag Ql (Throat) Negative Negative Group A Strep Screen [facility] XR Chest PA and Lateralon IMPRESSION: No acute abnormalities. [employer] Supervisor: PSCB Transcribe Date/Time: Sep 01 2023 1:44P Dictated by : SOSA GAMBOA MD This examination was interpreted and the report reviewed and electronically signed by: SOSA GAMBOA MD on Sep 01 2023 1:47PM [facility] * * *Final Report* * * DATE OF EXAM: Sep 01 2023 1:26PM RMX 5291 - XR CHEST 2V FRONTAL/LAT / PROCEDURE REASON: Rales * * * * Physician Interpretation * * * * EXAMINATION: CHEST RADIOGRAPH (2 VIEW FRONTAL & LATERAL) CLINICAL HISTORY: Rales MQ: [id number] EXAM DATE/TIME: 09/01/2023 1:26 PM COMPARISON: No relevant prior studies available. RESULT: Lines, tubes, and devices: None. Lungs and pleura: The costophrenic angles are clear. No acute infiltrates or congestion is seen. There is no pneumothorax. Cardiomediastinal silhouette: The heart and mediastinum show no acute abnormalities. Bones and soft tissues: There are no acute osseous abnormalities. [facility] Provider, Maddie Gaston - 09/01/2023 * * *Final Report* * * DATE OF EXAM: Sep 01 2023 1:26PM RMX [id number] - XR CHEST 2V FRONTAL/LAT / PROCEDURE REASON: Rales * * * * Physician Interpretation * * * * EXAMINATION: CHEST RADIOGRAPH (2 VIEW FRONTAL & LATERAL) CLINICAL HISTORY: Rales MQ: [id number] EXAM DATE/TIME: 09/01/2023 1:26 PM COMPARISON: No relevant prior studies available. RESULT: Lines, tubes, and devices: None. Lungs and pleura: The costophrenic angles are clear. No acute infiltrates or congestion is seen. There is no pneumothorax. Cardiomediastinal silhouette: The heart and mediastinum show no acute abnormalities. Bones and soft tissues: There are no acute osseous abnormalities. IMPRESSION IMPRESSION: No acute abnormalities. [employer] Supervisor: PSCElian Transcribe Date/Time: Sep 01 2023 1:44P Dictated by : SOSA GAMBOA MD This examination was interpreted and the report reviewed and electronically signed by: SOSA GAMBOA MD on Sep 01 2023 1:47PM EST [facility] Radiology Study observation (narrative) [facility] XR Chest PA and LateralOrder ed By: [facility] Provider on 09-01-2023 [facility] Absolute lymphocyte countOrd ered By: Diann Del Cid on 04-13-2023 Lymphocytes Auto (Unsp spec) [#/Vol] 3.30 10*3/uL 0.83-4.51 [facility] Basophil percentageOrdered B y: Diann Del Cid on 04-13-2023 Basophils/100 WBC (Bld) 0.5 % 0-1 [facility] Bilirubin [Mass/Vol] 0.40 mg/dL 0.20-1.00 [facility] Comment on above: For patients on eltr ombopag therapy, use of Dimension Freedom TBIL is not recommended. Chloride [Moles/Vol] 108 mmol/L 98-107 [facility] Eosinophils/100 WBC (Bld) 1.7 % 0-5 [facility] Glucose [Mass/Vol] 118 mg/dL 74-[address] [facility] Comment on above: Fasting Glucose resu lt from 100 to 125 mg/dL suggests IMPAIRED HOMEOSTASIS per A.D.A. criteria. Neutrophils (Bld) [#/Vol] 4.0 10*3/uL 2.0-7.7 [facility] Neutrophils/100 WBC (Bld) 49.2 % 47-70 [facility] Potassium [Moles/Vol] 3.5 mmol/L 3.5-5.1 [facility] Protein [Mass/Vol] 7.2 g/dL 6.4-8.[address] [facility] Sodium [Moles/Vol] 142 mmol/L 136-[address] [facility] WBC (Bld) [#/Vol] 8.1 10*3/uL 4.4-11.[address] [facility] Blood erythrocytes count (nu mber/volume)Ordered By: Diann Del Cid on 04-13-2023 RBC (Bld) [#/Vol] 4.36 10*6/uL 4.2-5.4 [facility] Blood hemoglobin measurement (mass/volume)Ordered By: Diann Del Cid on 04-13-2023 Hemoglobin (Bld) [Mass/Vol] 12.5 g/dL 12.0-15.0 [facility] Blood lymphocytes/100 leukoc ytesOrdered By: Diann Del Cid on 04-13-2023 Lymphocytes/100 WBC (Bld) 40.7 % 19-41 [facility] Blood monocytes/100 leukocyt esOrdered By: Diann Del Cid on 04-13-2023 Monocytes/100 WBC (Bld) 7.7 % 0-10 [facility] Blood platelet mean volumeOr dered By: Diann Del Cid on 04-13-2023 Platelet mean volume (Bld) [Entitic vol] 11.0 fL 6.2-12.0 [facility] Determination of erythrocyte mean corpuscular volume (MCV)Ordered By: Diann Del Cid on 04-13-2023 MCV (RBC) [Entitic vol] 89.2 fL 81-99 [facility] Hematocrit Auto (Bld) [Volum e fraction]Ordered By: [place] Nehemias on 04-13-2023 Hematocrit (Bld) [Volume fraction] 38.9 % 37-47 [facility] Laboratory - Chemistry and C hemistry - challengeOrdered By: [facility]-13-2023 ALP [Catalytic activity/Vol] 69 U/L 45-117 [facility] ALT [Catalytic activity/Vol] 70 U/L 13-56 [facility] CO2 [Moles/Vol] 26.0 mmol/L 21.0-32.0 [facility] Cobalamin (Vitamin B12) [Mass/Vol] 311 pg/mL 211-911 [facility] Free T4 [Mass/Vol] 0.87 ng/dL 0.76-1.[address] [facility] Globulin (S) [Mass/Vol] 3.2 g/dL 2.2-4.2 [facility] Urea nitrogen/Creatinine [Mass ratio] 15.2 mg/mg 10-20 [facility] Laboratory - Hematology and Cell countsOrdered By: [facility] on 04-13-2023 Erythrocyte distribution width (RBC) [Entitic vol] 44.1 fL 35.1-43.9 [facility] Erythrocyte distribution width (RBC) [Ratio] 13.4 % 11.6-14.6 [facility] Immature granulocytes/100 WBC (Bld) 0.200 % 0.0-0.9 [facility] Comment on above: IG% - Immature Granu locytes (promyelocytes, myelocytes and metamyelocytes) > 1% indicates that a LEFT SHIFT is Present. MCH (RBC) [Entitic mass] 28.7 pg 27.0-32.0 [facility] Nucleated RBC/100 WBC (Bld) [Ratio] 0 % 0-5 [facility] MCHC Auto (RBC) [Mass/Vol]Or dered By: Diannblaine Del Cid on 04-13-2023 MCHC (RBC) [Mass/Vol] 32.1 g/dL 32-36 [facility] No Panel InformationOrdered By: Dainnblaine Del Cid on 04-13-2023 Estimated GFR (MDRD) Amer 97 mL/min >60 [facility] Comment on above: GFR Calc Estimated GFR (MDRD) Non-Af Amer 80 mL/min >60 [facility] Comment on above: Non- GFR Calc Thyroid Stimulating Hormone (TSH) 2.84 uIU/mL 0.358-3.74 [facility] Vitamin D 25-Hydroxy 80.5 ng/mL [facility] Comment on above: Vitamin D 25(OH) Sta tus Range Deficiency <20 ng/mL (50nmol/L) Insufficiency 20 - 30 ng/mL (50 - 75 nmol/L) Sufficiency 30 - 100 ng/mL (75 - 250 nmol/L) Toxicity >100 ng/mL (>250 nmol/L) Platelets bldOrdered By: Lance Del Cid on 04-13-2023 Platelets (Bld) [#/Vol] 287 10*3/uL 150-450 [facility] Serum or plasma albumin kimber urement (mass/volume)Ordered By: Diann Del Cid on 04-13-2023 Albumin [Mass/Vol] 4.0 g/dL 3.2-5.[address] [facility] Serum or plasma albumin/glob ulin mass ratioOrdered By: Diann Del Cid on 04-13-2023 Albumin/Globulin [Mass ratio] 1.2 {ratio} 0.9-2.4 [facility] Serum or plasma calcium kimber urement (mass/volume)Ordered By: Diann Del Cid on 04-13-2023 Calcium [Mass/Vol] 9.0 mg/dL 8.5-10.[address] [facility] Serum or plasma creatinine m easurement (mass/volume)Ordered By: Diann Del Cid on 04-13-2023 Creatinine [Mass/Vol] 0.79 mg/dL 0.55-1.02 [facility] Comment on above: The validity of the calculated GFR & GFRAA in patients over 70 years has not been determined. Clinical correlation is essential. Serum or plasma urea nitroge n measurement (mass/volume)Ordered By: Diann Del Cid on 04-13-2023 Urea nitrogen [Mass/Vol] 12 mg/dL 7-18 [facility] Thin prep Papanicolaou smear with manual screeningOrdered By: Diann Del Cid on 04-13-2023 Thin prep Papanicolaou smear with manual screening 34 U/L 15-37 [facility] Thin prep Papanicolaou smear with manual screening 8 5-15 [facility] .Auto Diffon 10-30-2022 Basophil, Absolute 0.0 10 3/mcL Normal 0.0-0.3 [facility] ([place]) Comment on above: Performed By: #### G FR, ANEU, ADIFF, TSH, FT4, LIPID, B12, VIDH, CBC, CMP #### [address] [address] Basophils/100 WBC (Bld) 0.2 % Normal 0.0-2.5 [facility] ([place]) Comment on above: Performed By: #### G FR, ANEU, ADIFF, TSH, FT4, LIPID, B12, VIDH, CBC, CMP #### [address] [address] Eosinophil, Absolute 0.0 10 3/mcL Normal 0.0-0.7 [facility] ([place] Comment on above: Performed By: #### G FR, ANEU, ADIFF, TSH, FT4, LIPID, B12, VIDH, CBC, CMP #### [address] [address] Eosinophils/100 WBC (Bld) 0.3 % Normal 0.0-6.0 [facility] ([place]) Comment on above: Performed By: #### G FR, ANEU, ADIFF, TSH, FT4, LIPID, B12, VIDH, CBC, CMP #### [address] [address] Lymphocyte, Absolute 5.2 10 3/mcL High 0.9-4.3 [facility] ([place] Comment on above: Performed By: #### G FR, ANEU, ADIFF, TSH, FT4, LIPID, B12, VIDH, CBC, CMP #### [address] [address] Lymphocytes/100 WBC (Bld) 34.2 % Normal 20.0-40.0 [facility] ([place]) Comment on above: Performed By: #### G FR, ANEU, ADIFF, TSH, FT4, LIPID, B12, VIDH, CBC, CMP #### [address] [address] Monocyte, Absolute 1.0 10 3/mcL Normal 0.1-1.4 [facility] ([place]) Comment on above: Performed By: #### G FR, ANEU, ADIFF, TSH, FT4, LIPID, B12, VIDH, CBC, CMP #### [address] [address] Monocytes/100 WBC (Bld) 6.5 % Normal 2.0-13.0 [facility] ([place]) Comment on above: Performed By: #### G FR, ANEU, ADIFF, TSH, FT4, LIPID, B12, VIDH, CBC, CMP #### [address] [address] Neutrophils/100 WBC (Bld) 58.8 % Normal 50.0-75.0 [facility] ([place]) Comment on above: Performed By: #### G FR, ANEU, ADIFF, TSH, FT4, LIPID, B12, VIDH, CBC, CMP #### [address] [address] .GFRon 10-30-2022 GFR >60 Normal [facility] ([place]) Comment on above: Result Comment: GFR Population mean for , Non- Americans Ages 20-29 = 116 mL/min/1.73 sq.m. Ages 30-39 = 107 mL/min/1.73 sq.m. Ages 40-49 = 99 mL/min/1.73 sq.m. Ages 50-59 = 93 mL/min/1.73 sq.m. Ages 60-69 = 85 mL/min/1.73 sq.m. Ages 70+ = 75 mL/min/1.73 sq.m. Chronic Kidney Disease: Less than 60 mL/min/1.73 square meters End Stage Renal Disease: Less than 15 mL/min/1.73 square meters Performed By: #### G FR, ANEU, ADIFF, TSH, FT4, LIPID, B12, VIDH, CBC, CMP #### [address] [address] GFR Non- >60 Normal [facility] ([place]) Comment on above: Result Comment: GFR Population mean for , Non- Americans Ages 20-29 = 116 mL/min/1.73 sq.m. Ages 30-39 = 107 mL/min/1.73 sq.m. Ages 40-49 = 99 mL/min/1.73 sq.m. Ages 50-59 = 93 mL/min/1.73 sq.m. Ages 60-69 = 85 mL/min/1.73 sq.m. Ages 70+ = 75 mL/min/1.73 sq.m. Chronic Kidney Disease: Less than 60 mL/min/1.73 square meters End Stage Renal Disease: Less than 15 mL/min/1.73 square meters Performed By: #### G FR, ANEU, ADIFF, TSH, FT4, LIPID, B12, VIDH, CBC, CMP #### [place] [address] .NEUABSon 10-30-2022 Neutrophil, Absolute 9.0 10 3/mcL High 2.3-8.1 [facility] [place] Comment on above: Performed By: #### G FR, ANEU, ADIFF, TSH, FT4, LIPID, B12, VIDH, CBC, CMP #### [place] [address] B12on 10-30-2022 Cobalamin (Vitamin B12) [Mass/Vol] 248 pg/mL Normal 211-911 [facility] ([place]) Comment on above: Performed By: #### G FR, ANEU, ADIFF, TSH, FT4, LIPID, B12, VIDH, CBC, CMP #### [place] [address] CBCon 10-30-2022 Erythrocyte distribution width (RBC) [Ratio] 14.0 % Normal 11.5-15.5 [facility] ([place]) Comment on above: Performed By: #### G FR, ANEU, ADIFF, TSH, FT4, LIPID, B12, VIDH, CBC, CMP #### [place] [address] Hematocrit (Bld) [Volume fraction] 36.0 % Normal 34.0-46.0 [facility] ([place]) Comment on above: Performed By: #### G FR, ANEU, ADIFF, TSH, FT4, LIPID, B12, VIDH, CBC, CMP #### [place] [address] Hgb 11.9 G/dL Low 12.0-16.0 [facility] ([place]) Comment on above: Performed By: #### G FR, ANEU, ADIFF, TSH, FT4, LIPID, B12, VIDH, CBC, CMP #### [place] [address] MCH (RBC) [Entitic mass] 28.9 pg Normal 27.0-33.0 [facility] ([place]) Comment on above: Performed By: #### G FR, ANEU, ADIFF, TSH, FT4, LIPID, B12, VIDH, CBC, CMP #### [place] [address] MCHC 33.0 G/dL Normal 32.0-36.0 [facility] ([place]) Comment on above: Performed By: #### G FR, ANEU, ADIFF, TSH, FT4, LIPID, B12, VIDH, CBC, CMP #### [place] [address] MCV (RBC) [Entitic vol] 87.5 fL Normal 80.0-99.0 [facility] ([place]) Comment on above: Performed By: #### G FR, ANEU, ADIFF, TSH, FT4, LIPID, B12, VIDH, CBC, CMP #### [place] [address] Platelet 321 10 3/mcL Normal 150-450 [facility] ([place]) Comment on above: Performed By: #### G FR, ANEU, ADIFF, TSH, FT4, LIPID, B12, VIDH, CBC, CMP #### [place] [address] Platelet mean volume (Bld) [Entitic vol] 8.9 fL Normal 6.6-10.5 [facility] ([place]) Comment on above: Performed By: #### G FR, ANEU, ADIFF, TSH, FT4, LIPID, B12, VIDH, CBC, CMP #### [place] [address] RBC 4.11 10 6/mcL Normal 4.10-5.30 [facility] ([place]) Comment on above: Performed By: #### G FR, ANEU, ADIFF, TSH, FT4, LIPID, B12, VIDH, CBC, CMP #### [place] [address] WBC 15.3 10 3/mcL High 4.5-10.8 [facility] ([place]) Comment on above: Performed By: #### G FR, ANEU, ADIFF, TSH, FT4, LIPID, B12, VIDH, CBC, CMP #### [place] [address] CMPon 10-30-2022 Albumin Level 4.3 G/dL Normal 3.2-4.8 [facility] ([place]) Comment on above: Performed By: #### G FR, ANEU, ADIFF, TSH, FT4, LIPID, B12, VIDH, CBC, CMP #### [place] [address] Albumin/Globulin [Mass ratio] 1.7 {ratio} High 0.9-1.6 [facility] ([place]) Comment on above: Performed By: #### G FR, ANEU, ADIFF, TSH, FT4, LIPID, B12, VIDH, CBC, CMP #### [place] [address] ALP [Catalytic activity/Vol] 62 U/L Normal 38-126 [facility] ([place]) Comment on above: Performed By: #### G FR, ANEU, ADIFF, TSH, FT4, LIPID, B12, VIDH, CBC, CMP #### [place] [address] ALT [Catalytic activity/Vol] 87 U/L High 10-49 [facility] ([place]) Comment on above: Performed By: #### G FR, ANEU, ADIFF, TSH, FT4, LIPID, B12, VIDH, CBC, CMP #### [address] [address] AST [Catalytic activity/Vol] 35 U/L High 8-34 [facility] ([place]) Comment on above: Performed By: #### G FR, ANEU, ADIFF, TSH, FT4, LIPID, B12, VIDH, CBC, CMP #### [address] [address] Bili Total 0.40 mg/dL Normal 0.20-1.20 [facility] ([place]) Comment on above: Result Comment: Use of this assay is not recommended for patients undergoing treatment with eltrombopag due to the potential for falsely elevated results. Performed By: #### G FR, ANEU, ADIFF, TSH, FT4, LIPID, B12, VIDH, CBC, CMP #### [place] [address] BUN/Creatinine Ratio 21.9 ratio Normal 10.0-22.0 [facility] ([place]) Comment on above: Performed By: #### G FR, ANEU, ADIFF, TSH, FT4, LIPID, B12, VIDH, CBC, CMP #### [place] [id number] Calcium [Mass/Vol] 9.5 mg/dL Normal 8.7-10.4 [facility] ([place]) Comment on above: Performed By: #### G FR, ANEU, ADIFF, TSH, FT4, LIPID, B12, VIDH, CBC, CMP #### [address] [address] Chloride [Moles/Vol] 108 mmol/L Normal 98-110 [facility] ([place]) Comment on above: Performed By: #### G FR, ANEU, ADIFF, TSH, FT4, LIPID, B12, VIDH, CBC, CMP #### [address] [address] CO2 [Moles/Vol] 28 mmol/L Normal 22-32 [facility] ([place]) Comment on above: Performed By: #### G FR, ANEU, ADIFF, TSH, FT4, LIPID, B12, VIDH, CBC, CMP #### [address] [address] Creatinine [Mass/Vol] 0.73 mg/dL Normal 0.50-1.20 [facility] ([place]) Comment on above: Performed By: #### G FR, ANEU, ADIFF, TSH, FT4, LIPID, B12, VIDH, CBC, CMP #### [address] [address] Electrolyte Balance 9.0 mEq/L Normal 4.0-15.0 [facility] ([place]) Comment on above: Performed By: #### G FR, ANEU, ADIFF, TSH, FT4, LIPID, B12, VIDH, CBC, CMP #### [place] [id number] Globulin 2.5 G/dL Normal 1.5-3.8 [facility] ([place]) Comment on above: Performed By: #### G FR, ANEU, ADIFF, TSH, FT4, LIPID, B12, VIDH, CBC, CMP #### [place] [id number] Glucose [Mass/Vol] 104 mg/dL Normal 70-110 [facility] ([place]) Comment on above: Performed By: #### G FR, ANEU, ADIFF, TSH, FT4, LIPID, B12, VIDH, CBC, CMP #### [address] [address] Potassium [Moles/Vol] 3.8 mmol/L Normal 3.5-5.0 [facility] ([place]) Comment on above: Performed By: #### G FR, ANEU, ADIFF, TSH, FT4, LIPID, B12, VIDH, CBC, CMP #### [address] [address] Sodium [Moles/Vol] 145 mmol/L Normal 136-145 [facility] ([place]) Comment on above: Performed By: #### G FR, ANEU, ADIFF, TSH, FT4, LIPID, B12, VIDH, CBC, CMP #### [place] [id number] Total Protein 6.8 G/dL Normal 5.7-8.2 [facility] ([place]) Comment on above: Result Comment: No te - New Reference Range in effect 19 Performed By: #### G FR, ANEU, ADIFF, TSH, FT4, LIPID, B12, VIDH, CBC, CMP #### [address] [address] Urea nitrogen [Mass/Vol] 16.0 mg/dL Normal 8.0-22.0 [facility] ([place]) Comment on above: Performed By: #### G FR, ANEU, ADIFF, TSH, FT4, LIPID, B12, VIDH, CBC, CMP #### [address] [address] FT4on 10-30-2022 Free T4 [Mass/Vol] 0.87 ng/dL Low 0.89-1.76 [facility] ([place]) Comment on above: Result Comment: No te - New Reference Range in effect 19 Performed By: #### G FR, ANEU, ADIFF, TSH, FT4, LIPID, B12, VIDH, CBC, CMP #### [address] [address] LABORATORYOrdered By: SYSTEM SYSTEM on 10-30-2022 25-hydroxyvitamin D3 [Mass/Vol] 63.7 ng/mL Invalid Interpretation Code AH ADM SS Albumin BCP dye [Mass/Vol] 4.3 G/dL Invalid Interpretation Code 3.2 - 4.8 G/dL AH ADM SS Albumin/Globulin [Mass ratio] 1.7 {ratio} Invalid Interpretation Code 0.9 - 1.6 ratio AH ADM SS ALP [Catalytic activity/Vol] 62 U/L Invalid Interpretation Code 38 - 126 U/L AH ADM SS ALT No additional P-5'-P [Catalytic activity/Vol] 87 U/L Invalid Interpretation Code 10 - 49 U/L AH ADM SS AST [Catalytic activity/Vol] 35 U/L Invalid Interpretation Code 8 - 34 U/L AH ADM SS Basophils (Bld) [#/Vol] 0.0 103/mcL Invalid Interpretation Code 0.0 - 0.3 10^3/mcL AH Workflow SS Basophils/100 WBC (Bld) 0.2 % Invalid Interpretation Code 0.0 - 2.5 % AH Workflow SS Bilirubin [Mass/Vol] 0.40 mg/dL Invalid Interpretation Code 0.20 - 1.20 mg/dL ADM SS Calcium [Mass/Vol] 9.5 mg/dL Invalid Interpretation Code 8.7 - 10.4 mg/dL ADM SS Chloride [Moles/Vol] 108 mmol/L Invalid Interpretation Code 98 - 110 mEq/L ADM SS CO2 [Moles/Vol] 28 mmol/L Invalid Interpretation Code 22 - 32 mEq/L ADM SS Cobalamin (Vitamin B12) [Mass/Vol] 248 pg/mL Invalid Interpretation Code 211 - 911 pg/mL ADM SS Creatinine [Mass/Vol] 0.73 mg/dL Invalid Interpretation Code 0.50 - 1.20 mg/dL ADM SS Electrolyte Balance 9.0 mEq/L Invalid Interpretation Code 4.0 - 15.0 mEq/L ADM SS Eosinophils (Bld) [#/Vol] 0.0 103/mcL Invalid Interpretation Code 0.0 - 0.7 10^3/mcL Workflow SS Eosinophils/100 WBC (Bld) 0.3 % Invalid Interpretation Code 0.0 - 6.0 % Workflow SS Erythrocyte distribution width (RBC) [Ratio] 14.0 % Invalid Interpretation Code 11.5 - 15.5 % Workflow SS Free T4 [Mass/Vol] 0.87 ng/dL Invalid Interpretation Code 0.89 - 1.76 ng/dL ADM SS GFR/1.73 sq M.predicted among blacks MDRD (S/P/Bld) [Vol rate/Area] ml/min/1.73sqm Invalid Interpretation Code Chemistry S GFR/1.73 sq M.predicted among non-blacks MDRD (S/P/Bld) [Vol rate/Area] ml/min/1.73sqm Invalid Interpretation Code Chemistry S Globulin 2.5 G/dL Invalid Interpretation Code 1.5 - 3.8 G/dL ADM SS Glucose [Mass/Vol] 104 mg/dL Invalid Interpretation Code 70 - 110 mg/dL ADM SS Hematocrit (Bld) [Volume fraction] 36.0 % Invalid Interpretation Code 34.0 - 46.0 % Workflow SS Hemoglobin (Bld) [Mass/Vol] 11.9 G/dL Invalid Interpretation Code 12.0 - 16.0 G/dL Workflow SS Lymphocytes (Bld) [#/Vol] 5.2 103/mcL Invalid Interpretation Code 0.9 - 4.3 10^3/mcL AH Workflow SS Lymphocytes/100 WBC (Bld) 34.2 % Invalid Interpretation Code 20.0 - 40.0 % AH Workflow SS MCH (RBC) [Entitic mass] 28.9 pg Invalid Interpretation Code 27.0 - 33.0 pg AH Workflow SS MCHC 33.0 G/dL Invalid Interpretation Code 32.0 - 36.0 G/dL AH Workflow SS MCV (RBC) [Entitic vol] 87.5 fL Invalid Interpretation Code 80.0 - 99.0 fL AH Workflow SS Monocytes (Bld) [#/Vol] 1.0 103/mcL Invalid Interpretation Code 0.1 - 1.4 10^3/mcL AH Workflow SS Monocytes/100 WBC (Bld) 6.5 % Invalid Interpretation Code 2.0 - 13.0 % AH Workflow SS Neutrophils (Bld) [#/Vol] 9.0 103/mcL Invalid Interpretation Code 2.3 - 8.1 10^3/mcL AH Workflow SS Neutrophils/100 WBC (Bld) 58.8 % Invalid Interpretation Code 50.0 - 75.0 % AH Workflow SS Platelet mean volume (Bld) [Entitic vol] 8.9 fL Invalid Interpretation Code 6.6 - 10.5 fL AH Workflow SS Platelets (Bld) [#/Vol] 321 103/mcL Invalid Interpretation Code 150 - 450 10^3/mcL AH Workflow SS Potassium [Moles/Vol] 3.8 mmol/L Invalid Interpretation Code 3.5 - 5.0 mEq/L ADM SS Protein [Mass/Vol] 6.8 G/dL Invalid Interpretation Code 5.7 - 8.2 G/dL AH ADM SS RBC (Bld) [#/Vol] 4.11 106/mcL Invalid Interpretation Code 4.10 - 5.30 10^6/mcL AH Workflow SS Sodium [Moles/Vol] 145 mmol/L Invalid Interpretation Code 136 - 145 mEq/L ADM SS TSH Qn 1.079 mIU/mL Invalid Interpretation Code 0.550 - 4.780 mIU/mL ADM SS Urea nitrogen [Mass/Vol] 16.0 mg/dL Invalid Interpretation Code 8.0 - 22.0 mg/dL ADM SS Urea nitrogen/Creatinine [Mass ratio] 21.9 ratio Invalid Interpretation Code 10.0 - 22.0 ratio AH ADM SS WBC (Bld) [#/Vol] 15.3 103/mcL Invalid Interpretation Code 4.5 - 10.8 10^3/mcL AH Workflow SS LABORATORYOrdered By: Violetta Pierson on 10-30-2022 Cholesterol [Mass/Vol] 145 mg/dL Invalid Interpretation Code 50 - 199 mg/dL AH ADM SS Cholesterol in HDL [Mass/Vol] 54 mg/dL Invalid Interpretation Code 40 - 59 mg/dL AH ADM SS Cholesterol in LDL [Mass/Vol] 58 mg/dL Invalid Interpretation Code 0 - 129 mg/dL AH ADM SS Triglyceride [Mass/Vol] 165 mg/dL Invalid Interpretation Code 3 - 149 mg/dL AH ADM SS LIPIDon 10-30-2022 Cholesterol [Mass/Vol] 145 mg/dL Normal 50-199 [facility] ([place]) Comment on above: Result Comment: Chol esterol Reference Interval: Less than 200 Desirable 200-239 Borderline high risk 240 and above High risk Performed By: #### G FR, ANEU, ADIFF, TSH, FT4, LIPID, B12, VIDH, CBC, CMP #### [address] [address] Cholesterol in HDL [Mass/Vol] 54 mg/dL Normal 40-59 [facility] ([place]) Comment on above: Performed By: #### G FR, ANEU, ADIFF, TSH, FT4, LIPID, B12, VIDH, CBC, CMP #### [address] [address] Cholesterol in LDL [Mass/Vol] 58 mg/dL Normal 0-129 [facility] ([place]) Comment on above: Performed By: #### G FR, ANEU, ADIFF, TSH, FT4, LIPID, B12, VIDH, CBC, CMP #### [address] [address] Triglyceride [Mass/Vol] 165 mg/dL High 3-149 [facility] ([place]) Comment on above: Performed By: #### G FR, ANEU, ADIFF, TSH, FT4, LIPID, B12, VIDH, CBC, CMP #### [address] [address] TSHon 10-30-2022 TSH 1.079 mIU/mL Normal 0.550-4.780 [facility] ([place]) Comment on above: Result Comment: No te - New Reference Range in effect 19 Performed By: #### G FR, ANEU, ADIFF, TSH, FT4, LIPID, B12, VIDH, CBC, CMP #### [place] [id number] [address] [place] [id number] VIDHon 10-30-2022 Vit. D 25-Hydroxy 63.7 ng/mL Normal [facility] ([place]) Comment on above: Result Comment: Inte rpretive Values Based on Total 25(OH)D: Severe Deficiency <20 ng/mL Mild to Moderate Deficiency 20-30 ng/mL Optimum Levels 30-100 ng/mL Toxicity Possible >100 ng/mL Performed By: #### G FR, ANEU, ADIFF, TSH, FT4, LIPID, B12, VIDH, CBC, CMP #### [address] [address] Absolute lymphocyte counton 01-13-2022 Lymphocytes Auto (Unsp spec) [#/Vol] 3.27 10*3/uL 0.83-4.51 [facility] Work Phone: Basophil percentageon 2021 Basophils/100 WBC (Bld) 0.8 % 0-1 [facility] Work Phone: [phone] Bilirubin [Mass/Vol] 0.40 mg/dL 0.20-1.00 [facility] Work Phone: [phone] Comment on above: For patients on eltr ombopag therapy, use of Dimension Freedom TBIL is not recommended. Chloride [Moles/Vol] 110 mmol/L 98-107 [facility] Work Phone: [phone] Eosinophils/100 WBC (Bld) 1.9 % 0-5 [facility] Work Phone: [phone] Glucose [Mass/Vol] 107 mg/dL 74-[address] [facility] Work Phone: [phone] Comment on above: Fasting Glucose resu lt from 100 to 125 mg/dL suggests IMPAIRED HOMEOSTASIS per A.D.A. criteria. Neutrophils (Bld) [#/Vol] 2.4 10*3/uL 2.0-7.7 [facility] Work Phone: Neutrophils/100 WBC (Bld) 37.7 % 47-70 [facility] Work Phone: Potassium [Moles/Vol] 3.5 mmol/L 3.5-5.1 [facility]: Protein [Mass/Vol] 7.5 g/dL 6.4-8.2 [facility]: Sodium [Moles/Vol] 143 mmol/L 136-[address] [facility] Work Phone: WBC (Bld) [#/Vol] 6.3 10*3/uL 4.4-11.[address] [facility] Work Phone: Blood erythrocytes count (nu mber/volume)on 01-13-2022 RBC (Bld) [#/Vol] 4.22 10*6/uL 4.2-5.4 [facility]: Blood hemoglobin measurement (mass/volume)on 01-13-2022 Hemoglobin (Bld) [Mass/Vol] 12.2 g/dL 12.0-15.0 [facility] Work Phone: Blood lymphocytes/100 leukoc yteson 01-13-2022 Lymphocytes/100 WBC (Bld) 51.6 % 19-41 [facility] Work Phone: Blood monocytes/100 leukocyt eson 01-13-2022 Monocytes/100 WBC (Bld) 7.7 % 0-10 [facility] Work Phone: Blood platelet mean volumeon 01-13-2022 Platelet mean volume (Bld) [Entitic vol] 10.4 fL 6.2-12.0 [facility] Work Phone: Determination of erythrocyte mean corpuscular volume (MCV)on 01-13-2022 MCV (RBC) [Entitic vol] 88.6 fL 81-99 [facility] Work Phone: Hematocrit Auto (Bld) [Volum e fraction]on 01-13-2022 Hematocrit (Bld) [Volume fraction] 37.4 % 37-47 [facility] Work Phone: Laboratory - Chemistry and C hemistry - challengeon 01-13-2022 ALP [Catalytic activity/Vol] 60 U/L 45-117 [facility] Work Phone: [phone] ALT [Catalytic activity/Vol] 59 U/L 13-56 [facility] Work Phone: [phone] CO2 [Moles/Vol] 26.0 mmol/L 21.0-32.0 [facility] Work Phone: [phone] Free T4 [Mass/Vol] 0.77 ng/dL 0.76-1.[address] [facility] Work Phone: Globulin (S) [Mass/Vol] 3.3 g/dL 2.2-4.2 [facility] Work Phone: Urea nitrogen/Creatinine [Mass ratio] 18.9 mg/mg 10-20 [facility] Work Phone: Laboratory - Hematology and Cell countson 01-13-2022 Erythrocyte distribution width (RBC) [Entitic vol] 43.9 fL 35.1-43.9 [facility] Work Phone: Erythrocyte distribution width (RBC) [Ratio] 13.4 % 11.6-14.6 [facility] Work Phone: Immature granulocytes/100 WBC (Bld) 0.300 % 0.0-0.9 [facility] Work Phone: Comment on above: IG% - Immature Granu locytes (promyelocytes, myelocytes and metamyelocytes) > 1% indicates that a LEFT SHIFT is Present. MCH (RBC) [Entitic mass] 28.9 pg 27.0-32.0 [facility] Work Phone: Nucleated RBC/100 WBC (Bld) [Ratio] 0 % 0-5 [facility] Work Phone: MCHC Auto (RBC) [Mass/Vol]on 01-13-2022 MCHC (RBC) [Mass/Vol] 32.6 g/dL 32-36 [facility] Work Phone: No Panel Informationon 01-13 Estimated GFR (MDRD) Amer 105 mL/min >60 [facility] Work Phone: Comment on above: GFR Calc Estimated GFR (MDRD) Non-Af Amer 87 mL/min >60 [facility] Work Phone: Comment on above: Non- GFR Calc Thyroid Stimulating Hormone (TSH) 1.52 uIU/mL 0.358-3.74 [facility] Work Phone: Vitamin D 25-Hydroxy 54.6 ng/mL [facility] Work Phone: Comment on above: Vitamin D 25(OH) Sta tus Range Deficiency <20 ng/mL (50nmol/L) Insufficiency 20 - 30 ng/mL (50 - 75 nmol/L) Sufficiency 30 - 100 ng/mL (75 - 250 nmol/L) Toxicity >100 ng/mL (>250 nmol/L) Platelets bldon 01-13-2022 Platelets (Bld) [#/Vol] 313 10*3/uL 150-450 [facility] Work Phone: Serum or plasma albumin kimber urement (mass/volume)on 01-13-2022 Albumin [Mass/Vol] 4.2 g/dL 3.2-5.[address] [facility] Work Phone: Serum or plasma albumin/glob ulin mass ratioon 01-13-2022 Albumin/Globulin [Mass ratio] 1.3 {ratio} 0.9-2.4 [facility] Work Phone: Serum or plasma calcium kimber urement (mass/volume)on 01-13-2022 Calcium [Mass/Vol] 9.4 mg/dL 8.5-10.[address] [facility] Work Phone: Serum or plasma creatinine m easurement (mass/volume)on 01-13-2022 Creatinine [Mass/Vol] 0.74 mg/dL 0.55-1.02 [facility] Work Phone: Comment on above: The validity of the calculated GFR & GFRAA in patients over 70 years has not been determined. Clinical correlation is essential. Serum or plasma urea nitroge n measurement (mass/volume)on 01-13-2022 Urea nitrogen [Mass/Vol] 14 mg/dL 7-18 [facility] Work Phone: Thin prep Papanicolaou smear with manual screeningon 01-13-2022 Thin prep Papanicolaou smear with manual screening 35 U/L [facility] Work Phone: Thin prep Papanicolaou smear with manual screening 7 10-13 [facility] Work Phone: Vital Signs Date Time Vital Sign Value Performing Clinician Facility 09-01-2023 12:42-0400 Body temperature 100.99 [degF] Constantin Balbuena Jr., [employer].ELECTRICAL INSTRUMENT TECHNICIAN Work Phone: [facility] 09-01-2023 12:42-0400 Diastolic blood pressure 93 mm[Hg] Constantin Balbuena Jr., [employer].ELECTRICAL INSTRUMENT TECHNICIAN Work Phone: [facility] 09-01-2023 12:42-0400 Heart rate 110 /min Constantin Balbuena Jr., [employer]AC[employer].ELECTRICAL INSTRUMENT TECHNICIAN Work Phone: [facility] 09-01-2023 12:42-0400 Respiratory rate 20 /min Constantin Balbuena Jr., [employer]AC[employer].ELECTRICAL INSTRUMENT TECHNICIAN Work Phone: [facility] 09-01-2023 12:42-0400 SaO2% (BldA) [Mass fraction] 98 % Constantin Balbuena Jr., [employer]AC[employer].ELECTRICAL INSTRUMENT TECHNICIAN Work Phone: [facility] 09-01-2023 12:42-0400 Systolic blood pressure 143 mm[Hg] Constantin Balbuena Jr., [employer].ELECTRICAL INSTRUMENT TECHNICIAN Work Phone: [facility] Encounters Encounter Date Encounter Type Care Provider Facility Start: 03-13-2025 End: 03-13-2025 ambulatory EASTON ROSO Facility:[id number] Start: 03-10-2025 End: 03-10-2025 ambulatory EASTON ROSO Facility:[id number] Start: 03-07-2025 End: 03-07-2025 ambulatory EASTON ROSO Facility:[id number] Start: 03-03-2025 End: 03-03-2025 ambulatory EASTON ROSO Facility:[id number] Start: 02-28-2025 End: 02-28-2025 ambulatory EASTON ROSO Facility:[id number] Start: 02-23-2025 End: 02-23-2025 ambulatory EASTON ROSO Facility:[id number] Start: 02-21-2025 End: 02-21-2025 ambulatory EASTON ROSO Facility:[id number] Start: 02-17-2025 End: 02-17-2025 ambulatory EASTON ROSO Facility:[id number] Start: 01-10-2025 End: 01-10-2025 ambulatory Anam Zavaleta PT, DPT [facility] Comment on above: Lumbar radiculopathy (Primary Dx); Spondylolisthesis of lumbosacral region; Chronic right-sided low back pain with right-sided sciatica Start: 04-27-2024 End: 04-27-[address] [facility] Facility:[facility] Start: 04-18-2024 End: 04-18-2024 [facility] Facility:[facility] Start: 10-12-2023 End: 10-12-[address] [facility] Facility:[facility] Start: 09-02-2023 Telephone encounter Michelle Radha Pollock DO Work Phone: [facility] Comment on above: Results; Orders (New prescriiption) Start: 09-02-2023 End: 09-02-2023 ambulatory [facility] Work Phone: Start: 09-02-2023 End: 09-02-2023 Patient encounter procedure [facility]Jalyn [facility] Start: 09-02-2023 End: 09-02-2023 ambulatory Diann Del Cid Facility:[facility] Start: 09-01-2023 End: 09-01-2023 Subsequent hospital visit by physician Ozzy [facility] Work Phone: [facility] Comment on above: Rales [R09.89] Start: 09-01-2023 End: 09-01-2023 Patient encounter procedure Constantin Balbuena APRN.ELECTRICAL INSTRUMENT TECHNICIAN Work Phone: [facility] Comment on above: Rales (Primary Dx); Sore throat; Acute cough Start: 04-13-2023 End: 04-13-2023 ambulatory [facility] Work Phone: Start: 04-13-2023 End: 04-13-2023 Patient encounter procedure [facility]Jalyn Gagnon [facility] Start: 03-16-2023 End: 03-16-2023 ambulatory [facility] Work Phone: Start: 03-16-2023 End: 03-16-2023 Patient encounter procedure [facility] Work Phone: Start: 10-30-2022 End: 10-31-2022 ambulatory PHY WO ID REFERRING Facility:A Start: 10-30-2022 End: 10-30-2022 Patient encounter procedure PHY WO ID REFERRING [facility] Start: 10-30-2022 End: 10-30-2022 Well adult monitoring check done PHY WO ID REFERRING [facility] Start: 04-14-[address] VALENCIA KOCH DO Fa cility:B Start: 03-12-2022 End: 03-12-2022 ambulatory [facility] Work Phone: Start: 03-12-2022 End: 03-12-2022 Patient encounter procedure [facility] Start: 01-13-2022 End: 01-13-2022 Patient encounter procedure [facility] Start: 06-04-2021 End: 06-04-2021 Patient encounter procedure DIANDRA GONZALES MD [facility] Start: 03-11-2021 End: 03-11-2021 Patient encounter procedure DIANDRA GONZALES MD [facility] Procedures Date Procedure Procedure Detail Performing Clinician Start: 09-02-2023 Nucleic acid assay Start: 09-01-2023 Radiologic exam ches t 2 views Constantin Balbuena [employer].ELECTRICAL INSTRUMENT TECHNICIAN Work Phone: Start: 09-01-2023 Iadna streptococcus group a amplified probe tq Constantin Balbuena [employer] FAC[employer].ELECTRICAL INSTRUMENT TECHNICIAN Work Phone: Start: 03-16-2023 Screening mammography Start: 03-12-2022 Screening mammography Start: 01-11-2018 Echocardiography TY GONZALES MD Comment on above: EF 60% Start: 12-17-2015 Echocardiography TY GONZALES MD Comment on above: EF 65% H/O: surgery History of pituitary surgery( Confirmed ) DIANDRA GONZALES MD Plan of Treatment Date Care Activity Detail Author Start: 01-30-2025 Influenza vaccination Influenza Vaccine (#1) [facility] Start: 01-31-2024 Covid-19 Vaccine () Covid-19 Vaccine () [facility] Start: 01-31-2024 Influenza vaccination Influenza Vaccine (#[facility] Start: 09-02-2023 Borrelia burgdorferi blot test [facility] Start: 06-01-2023 Behavioral Health Screening Behavioral Health Screening [facility] Start: 06-01-2023 Depression Assessment Depression Assessment [facility] Start: 01-30-2023 Covid-19 Vaccine () Covid-19 Vaccine () [facility] Start: 2017 Pneumococcal Vaccine: 50+ (1 of 1 - PCV) Pneumococcal Vaccine: 50+ (1 of 1 - PCV) [facility] Start: 2017 Shingrix Vaccine (1 of 2) Shingrix Vaccine (1 of 2) [facility] Start: 2012 Diabetes Screening Diabetes Screening [facility] Start: 2012 Lipid panel Lipid Screening [facility] Start: 2012 Screening for malignant neoplasm of colon [facility] Start: 2007 Screening for malignant neoplasm of breast Mammogram Screening [facility] Start: 1997 Screening for malignant neoplasm of cervix HPV Testing [facility] Start: 1988 Screening for malignant neoplasm of cervix [facility] Start: 1986 Hepatitis B Vaccine (1 of 3 - 19+ 3-dose series) Hepatitis B Vaccine (1 of 3 - 19+ 3-dose series) [facility] Start: 1986 Urine microalbumin profile DTaP,Tdap,Td Vaccine (1 - Tdap) [facility] Start: 1985 Anxiety Screening Anxiety Screening [facility] Start: 1985 Depression Screening Depression Screening [facility] Start: 1985 Hepatitis C screening Hepatitis C Screening [facility] Start: 1985 HIV screening HIV Screening [facility] Laboratory data interpretation [facility] Immunizations Immunization Date Immunization Notes Care Provider Cheyenne cronin 02-25-2024 influenza virus vacc ine, unspecified formulation Anam Zavaleta PT, DPT [facility] 04-13-2023 influenza virus vacc ine, unspecified formulation Xr [place]ner Work Phone: [facility] Payers Date Payer Category Payer Self-pay [id number] 2022 [facility] BLUE CARD PPO OOS [id number] 2022 Unknown [employer] BLUE CARD PPO OOS [id number] 2022-Present [phone] [address] [place] [address] PPO [id number] 2022 Private Health Insurance [id number] 2015 Unknown ANTHEM [id number] 2015 Unknown [id number] 1967 Unknown [id number] 1963 Unknown [id number] Unknown [id number] Unknown [id number] Unknown [id number] Unknown [id number] Social History Date Type Detail Facility Start: 11-24-2019 End: 09-01-2023 Never smoked tobacco (finding) [facility] Start: 1965 Sex Assigned At Female A [facility] Start: 09-01-2023 Tobacco use and exposure Smokeless tobacco non-user [facility] Start: 09-01-2023 Alcohol intake Current drinke r of alcohol (finding) [facility] Start: 09-01-2023 End: 01-10-2025 History of Social function [facility] Start: 09-01-2023 End: 01-10-2025 Tobacco use panel [facility] Start: 1965 Sex Assigned At Not on file [facility] Start: 05-02-2012 National Score (1-100), lower number is lower risk 69 [facility] Clinical Notes 12-11-2021 to 03-13-2025 Anam Zavaleta PT DPT - 01/10/2025 10:01 AM Anam White PT DPT - 01/10/2025 9:27 AM EDTTelephone Encounter - Roxana Vazquez LPN - 09/03/2023 10:23 AM EDTPatient InstructionsLaboratory Note Date & Type Note Facility 03-13-2025 Note HNO ID: [id number] Author: ANAM ZAVALETA PT DPXena Service: ? Author Type: Physical Therapist Type: Progress Notes Filed: 03/13/2025 14:30 Note Text: Episode Visit Count: 9 Therapist That Will Accept/Oversee The Plan Of Care: Anam Zavaleta Start of Care Date: 01/10/25 Onset Date: 01/11/20 Patient Identified by Name and Date of : Yes REHABILITATION AND SPORTS THERAPY PHYSICAL THERAPY DISCONTINUANCE OF CARE PLAN OF CARE UPDATE: Assessment: Dorothy De La Cruz is discontinued from Physical Therapy services due to Patient/Clinician mutual decision to discontinue current plan of care.. Patient was seen for 9 visits from Start of Care Date: 01/10/25 to 03/13/2025 and treatment included: Therapeutic exercise, Neuromuscular re-education, and Self-skilled nursing management. Patient demos improved Lumbar ROM, BLE and core strength. She demos ability to walk and sit without numbness but numbness occurs during prolonged standing. Patient was educated to return to MD for further interventions if warranted by MD. Goals for Episode of Care: established 01/10/25 02/16/25 03/13/25 Patient reported outcome of physical function will increase T-score by a minimum 5 points (not met) Patient will decrease pain to 2/10 with functional activities to allow patient to improve ambulation. (met) Restore pain-free lumbar flexion ROM to allow for improved tolerance to ADL's (prog) Stand / Walk 20 min without pain/symptoms. (Met but unable to stand for 10 min without LE numbness) Sleep through night without pain/symptoms. (met) Sit 30 minutes without pain/symptoms to allow for improved tolerance to driving (met) Patient will increase strength of BLE to 4+/5 to allow for improve ability to complete ADLs. (met) Patient will increase flexibility of Bilateral hamstrings to 25 degrees to improve mechanics. (met) Perform work tasks with decreased report of symptoms/pain in 6 weeks. (Not met) SUBJECTIVE: Patient notes the leg numbness is the same as prior to starting skilled PT. She notes she was standing for about 10 min today prior to increased pain.. Pain: Pain Pain Level: 0 Pain Location: Low Back/Lumbar Spine - Right, Buttocks - Right, Leg - Right Description: Aching PROMIS Scales 02/16/2025 01/09/2025 Higher is Better Phys Func - T Score 48 (within normal limits) Phys Func - Percentile 42 Self-Eff Symptom - T Score 57 (Average) 57 (Average) Self-Eff Symptom - Percentile 76 76 01/09/2025 Lower is Better Pain Interference - T Score 62 (moderate) Pain Interference - Percentile 12 T-Score and Percentile Interpretation T-scores: mean of general population = 50. 5 points is clinically meaningfully difference Percentiles provide an indication of how the patient's score ranks in relation to the general population. Higher percentile rankings indicate better function/quality of life. 50th percentile is the average of the general population and indicates half of respondents had a worse score. OBJECTIVE MEASURES WITH LEVEL OF FUNCTION: Lumbar Spine AROM Lumbar Flexion: Normal Lumbar Extension: Normal Lumbar R Side [place]: Normal Lumbar L Side [place]: Normal Lumbar R Side-Bend: Normal Lumbar L Side-Bend: Normal Lumbar R Rotation: Normal Lumbar L Rotation: Normal LE Flexibility Flexibility: Hamstring Flexibility, Quadriceps Flexibility R Hamstring Flexibility: 25 L Hamstring Flexibility: 20 LE Strength Trunk Strength: 4+/5 R Hip Extension: 4+/5 R Hip Flexion (L2): 4+/5 R Hip ABduction: 4+/5 R Hip Internal Rotation: 4+/5 R Hip External Rotation: 4+/5 R Knee Extension (L3): 4+/5 R Knee Flexion: 4+/5 L Hip Extension: 4+/5 L Hip Flexion (L2): 4+/5 L Hip ABduction: 4+/5 L Hip ADduction: 4+/5 L Hip Internal Rotation: 4+/5 L Hip External Rotation: 4+/5 L Knee Extension (L3): 5/5 L Knee Flexion: 5/5 TREATMENT: Therapeutic Exercise: 3: reassessment of goals and discussed progress 9: *deadbugs 3x10 16: *bird dogs 3x10 Skilled Intervention: Patient was educated in proper exercise technique and purpose for exercises. Reviewed and educated patient on additions/changes for home exercise program as above (*). Skilled judgment was used in selection of appropriate interventions. Patient education as noted. Home Exercise Program Assigned: Current Home Program: Access Code: [email or web address] URL: [email or web address] Date: 03/13/2025 Prepared by: Anam Zavaleta Exercises - Supine March with Posterior Pelvic Tilt - 1 x daily - 7 x weekly - 3 sets - 10 reps - Supine Piriformis Stretch with Foot on Ground - 1 x daily - 7 x weekly - 3 sets - 30 hold - Supine Hamstring Stretch with Strap - 1 x daily - 7 x weekly - 3 sets - 30 hold - Supine ITB Stretch with Strap - 1 x daily - 7 x weekly - 3 sets - 30 hold - Supine March with Posterior Pelvic Tilt - 1 x daily - 7 x weekly - 3 sets - 10 reps - Hooklying Clamshell with Resistance - 1 x daily - 7 x (more content not included)... [facility] 03-10-2025 Note HNO ID: [id number] Author: ANAM ZAVALETA, PT, DPT Service: ? Author Type: Physical Therapist Type: Progress Notes Filed: 03/10/2025 09:32 Note Text: Episode Visit Count: 8 Therapist That Will Accept/Oversee The Plan Of Care: Anam Zavaleta Start of Care Date: 01/10/25 Onset Date: 01/11/20 Patient Identified by Name and Date of : Yes REHABILITATION AND SPORTS THERAPY PHYSICAL THERAPY TREATMENT NOTE ASSESSMENT: Dorothy De La Cruz tolerated the session with expected muscle soreness and no issues. She demonstrated good tolerance to all exercises without pain or numbness . The patient will continue to benefit from ongoing skilled physical therapy to progress toward set goals. PLAN FOR NEXT VISIT: BLE strength, nuetral core strengthening, lumbar mobility, limit extension motion SUBJECTIVE: Patient reports no new changes Pain: Pain Pain Level: 0 Pain Location: Low Back/Lumbar Spine - Right, Buttocks - Right, Leg - Right Description: Aching OBJECTIVE MEASURES WITH LEVEL OF FUNCTION: No objective measurements taken this session. Please refer to patient assessment for tolerance to today's treatment TREATMENT: Therapeutic Exercise: 1: shuttle press Bilateral 62# 2x15 2: SL shuttle press 31# 2x10 6: supine bridge 3x10 8: supine SLR 3x10 B 2# 9: deadbugs 3x10 10: PPT march up up down down 3x10 11: multihip hip extension 40# 3x10 B 12: shuttle press Bilateral 62# 2x15 13: [place] band clam shells 3x10 14: palloff press [id number]# on CC 15: CC shoulder ext 25# 3x10 16: bird dogs 3x10 17: 6 in lateral step ups 2x10 B 18: multihip abduction 3x10 25# Skilled Intervention: Patient was educated in proper exercise technique and purpose for exercises. Skilled judgment was used in selection of appropriate interventions. Patient education as noted. Billing Therapeutic Exercise Treatment Minutes: 43 Skilled Treatment Time Minutes (timed and untimed codes): 43 Total Session Time (minutes): 43 Session Start Time : 841 Session Stop Time : 924 Anam Zavaleta PT, DPT [facility] 03-07-2025 Note HNO ID: [id number] Author: ANAM ZAVALETA PT, DPT Service: ? Author Type: Physical Therapist Type: Progress Notes Filed: 03/07/2025 09:30 Note Text: Episode Visit Count: 7 Therapist That Will Accept/Oversee The Plan Of Care: Anam Zavaleta Start of Care Date: 01/10/25 Onset Date: 01/11/20 Patient Identified by Name and Date of : Yes REHABILITATION AND SPORTS THERAPY PHYSICAL THERAPY TREATMENT NOTE ASSESSMENT: Dorothy De La Cruz tolerated the session with expected muscle soreness and no issues. She demonstrated good tolerance to increased reps to improve muscle strength. The patient will continue to benefit from ongoing skilled physical therapy to progress toward set goals. PLAN FOR NEXT VISIT: BLE strength, nuetral core strengthening, lumbar mobility, limit extension motion SUBJECTIVE: Patient notes she is doing well. Pain: Pain Pain Level: 0 Pain Location: Low Back/Lumbar Spine - Right, Buttocks - Right, Leg - Right Description: Aching Post Treatment Pain Post Treatment Pain Level: 0 Post Treatment Pain Location: Low Back/Lumbar Spine - Right, Hip - Right OBJECTIVE MEASURES WITH LEVEL OF FUNCTION: No objective measurements taken this session. Please refer to patient assessment for tolerance to today's treatment TREATMENT: Therapeutic Exercise: 6: supine bridge 3x10 (increased reps) 8: supine SLR 3x10 B 2# (increased reps) 9: deadbugs 3x10 (increased reps) 10: PPT march up up down down 3x10 (increased reps) 11: multihip hip extension 40# 3x10 B (increased reps) 12: shuttle press Bilateral 62# 2x15 13: [place] band clam shells 3x10 (increased reps) 14: palloff press 2x10 17.5# on CC 15: CC shoulder ext 25# 2x10 16: bird dogs 3x10 (increased reps) 17: 6 in lateral step ups 2x10 B 18: multihip abduction 3x10 25# (increased reps) Skilled Intervention: Patient was educated in proper exercise technique and purpose for exercises. Skilled judgment was used in selection of appropriate interventions. Patient education as noted. Neuromuscular Re-Education: 1: SLS BLE 2x30 on airex Skilled Intervention: Skilled judgment used to assess appropriate program for balance and coordination activity. Billing Therapeutic Exercise Treatment Minutes: 40 Neuromuscular Re-Education Treatment Minutes: 2 Skilled Treatment Time Minutes (timed and untimed codes): 42 Total Session Time (minutes): 42 Session Start Time : 841 Session Stop Time : 923 Anam Zavaleta PT, DPT [facility] 03-03-2025 Note HNO ID: [id number] Author: ANAM ZAVALETA PT, DPT Service: ? Author Type: Physical Therapist Type: Progress Notes Filed: 03/03/2025 08:44 Note Text: Episode Visit Count: 6 Therapist That Will Accept/Oversee The Plan Of Care: Anam Zavaleta Start of Care Date: 01/10/25 Onset Date: 01/11/20 Patient Identified by Name and Date of : Yes REHABILITATION AND SPORTS THERAPY PHYSICAL THERAPY TREATMENT NOTE ASSESSMENT: Dorothy De La Cruz tolerated the session with expected muscle soreness and no issues. She demonstrated good tolerance to all exercises without increased pain. She demos increased difficulty with SLS with progression to airex.. The patient will continue to benefit from ongoing skilled physical therapy to progress toward set goals. PLAN FOR NEXT VISIT: increase reps [place]. BLE strength, nuetral core strengthening, lumbar mobility, limit extension motion SUBJECTIVE: Patient notes no increased pain after last session. Pain: Pain Pain Level: 0 Pain Location: Low Back/Lumbar Spine - Right, Buttocks - Right, Leg - Right Description: Aching Post Treatment Pain Post Treatment Pain Level: 0 Post Treatment Pain Location: Low Back/Lumbar Spine - Right, Hip - Right OBJECTIVE MEASURES WITH LEVEL OF FUNCTION: No objective measurements taken this session. Please refer to patient assessment for tolerance to today's treatment TREATMENT: Therapeutic Exercise: 1: Piriformis stretching 2x30 6: supine bridge 2x10 8: supine SLR 2x10 B 2# 9: deadbugs 2x10 10: PPT march up up down down 2x10 11: multihip hip extension 40# 2x10 B 12: shuttle press Bilateral 62# 2x15 14: palloff press 2x10 17.5# on CC 15: CC shoulder ext 25# 2x10 16: bird dogs 2x10 18: multihip abduction 2x10 25# Skilled Intervention: Patient was educated in proper exercise technique and purpose for exercises. Skilled judgment was used in selection of appropriate interventions. Patient education as noted. Neuromuscular Re-Education: 1: SLS BLE 2x30 on airex Skilled Intervention: Skilled judgment used to assess appropriate program for balance and coordination activity. Billing Therapeutic Exercise Treatment Minutes: 41 Neuromuscular Re-Education Treatment Minutes: 2 Skilled Treatment Time Minutes (timed and untimed codes): 43 Total Session Time (minutes): 43 Session Start Time : 0800 Session Stop Time : 0843 Anam Zavaleta PT, DPT [facility] 02-28-2025 Note HNO ID: [id number] Author: ANAM ZAVALETA PT, DPT Service: ? Author Type: Physical Therapist Type: Progress Notes Filed: 02/28/2025 10:19 Note Text: Episode Visit Count: 5 Therapist That Will Accept/Oversee The Plan Of Care: Anam Zavaleta Start of Care Date: 01/10/25 Onset Date: 01/11/20 Patient Identified by Name and Date of : Yes REHABILITATION AND SPORTS THERAPY PHYSICAL THERAPY TREATMENT NOTE ASSESSMENT: Dorothy De La Cruz tolerated the session with expected muscle soreness and no issues. She demonstrated god tolerance to additional exercises for LE and core strength . The patient will continue to benefit from ongoing skilled physical therapy to progress toward set goals. PLAN FOR NEXT VISIT: BLE strength, nuetral core strengthening, lumbar mobility, limit extension motion SUBJECTIVE: Patient notes everything is feeling good. Pain: Pain Pain Level: 0 Pain Location: Low Back/Lumbar Spine - Right, Buttocks - Right, Leg - Right Description: Aching Post Treatment Pain Post Treatment Pain Level: 0 Post Treatment Pain Location: Low Back/Lumbar Spine - Right, Hip - Right OBJECTIVE MEASURES WITH LEVEL OF FUNCTION: No objective measurements taken this session. Please refer to patient assessment for tolerance to today's treatment TREATMENT: Therapeutic Exercise: 1: Piriformis stretching 2x30 2: supine ITB stretching 2x30 3: pink T band clamshells 2x10 4: hamstring stretch 2x30 5: posterior pelvic tilt with march 2x10 with pink T band 8: supine SLR 2x10 B 2# 9: deadbugs 2x10 11: multihip hip extension 40# 2x10 B 12: shuttle press Bilateral 62# 2x15 13: shuttle press SL 2x15 31# 14: palloff press 2x10 17.5# on CC 15: CC shoulder ext 25# 2x10 16: bird dogs 2x10 17: pink theraband side steps 25 feet x2 Skilled Intervention: Patient was educated in proper exercise technique and purpose for exercises. Skilled judgment was used in selection of appropriate interventions. Patient education as noted. Neuromuscular Re-Education: 1: SLS BLE 2x30 Skilled Intervention: Skilled judgment used to assess appropriate program for balance and coordination activity. Billing Therapeutic Exercise Treatment Minutes: 43 Neuromuscular Re-Education Treatment Minutes: 2 Skilled Treatment Time Minutes (timed and untimed codes): 45 Total Session Time (minutes): 45 Session Start Time : 929 Session Stop Time : 1015 Anam Zavaleta PT, DPT [facility] 02-23-2025 Note HNO ID: [id number] Author: ANAM ZAVALETA PT, DPT Service: ? Author Type: Physical Therapist Type: Progress Notes Filed: 02/23/2025 08:48 Note Text: Episode Visit Count: 4 Therapist That Will Accept/Oversee The Plan Of Care: Anam Zavaleta Start of Care Date: 01/10/25 Onset Date: 01/11/20 Patient Identified by Name and Date of : Yes REHABILITATION AND SPORTS THERAPY PHYSICAL THERAPY TREATMENT NOTE ASSESSMENT: Dorothy De La Cruz tolerated the session with expected muscle soreness and no issues. She demonstrated good tolerance to additional core exercises. She tolerates increased resistance and reps with current exercises program to improve strength. The patient will continue to benefit from ongoing skilled physical therapy to progress toward set goals. PLAN FOR NEXT VISIT: Add shoulder ext and SLS NV BLE strength, nuetral core strengthening, lumbar mobility, limit extension motion SUBJECTIVE: Patient notes no increased pain after last session Pain: Pain Pain Level: 0 Pain Location: Low Back/Lumbar Spine - Right, Buttocks - Right, Leg - Right Description: Aching Post Treatment Pain Post Treatment Pain Level: 0 Post Treatment Pain Location: Low Back/Lumbar Spine - Right, Hip - Right OBJECTIVE MEASURES WITH LEVEL OF FUNCTION: No objective measurements taken this session. Please refer to patient assessment for tolerance to today's treatment TREATMENT: Therapeutic Exercise: 1: Piriformis stretching 2x30 2: supine ITB stretching 2x30 4: hamstring stretch 2x30 5: posterior pelvic tilt with july 2x10 with pink T band (increased reps) 6: supine hip abduction 3x10 pink T band (increased reps) 7: supine hip adduction 2x10 x5 hold 8: supine SLR 2x10 B 2# (increased resistance) 10: 6 in lateral step ups 2x10 B 11: multihip hip extension 40# 2x10 B 12: shuttle press Bilateral 62# 2x15 (increased weight) 13: shuttle press SL 2x15 31# (icnreased reps and resistance) 14: palloff press 2x10 17.5# on CC 16: bird dogs 2x10 17: pink theraband side steps 25 feet x2 18: 4 in step downs 2x10 B Skilled Intervention: Patient was educated in proper exercise technique and purpose for exercises. Skilled judgment was used in selection of appropriate interventions. Patient education as noted. Billing Therapeutic Exercise Treatment Minutes: 48 Skilled Treatment Time Minutes (timed and untimed codes): 48 Total Session Time (minutes): 48 Session Start Time : 0800 Session Stop Time : 0848 Anam Zavaleta PT, DPT [facility] 02-21-2025 Note HNO ID: [id number] Author: ANAM ZAVALETA PT, DPT Service: ? Author Type: Physical Therapist Type: Progress Notes Filed: 02/21/2025 08:48 Note Text: Episode Visit Count: 3 Therapist That Will Accept/Oversee The Plan Of Care: Anam Zavaleta Start of Care Date: 01/10/25 Onset Date: 01/11/20 Patient Identified by Name and Date of : Yes REHABILITATION AND SPORTS THERAPY PHYSICAL THERAPY TREATMENT NOTE ASSESSMENT: Dorothy De La Cruz tolerated the session with expected muscle soreness and no issues. She demonstrated good tolerance to additional core exercises. The patient will continue to benefit from ongoing skilled physical therapy to progress toward set goals. PLAN FOR NEXT VISIT: Add bridges with band NV, BLE strength, nuetral core strengthening, lumbar mobility, limit extension motion SUBJECTIVE: Patient notes no issues after last session. Pain: Pain Pain Level: 0 Pain Location: Low Back/Lumbar Spine - Right, Buttocks - Right, Leg - Right Description: Aching OBJECTIVE MEASURES WITH LEVEL OF FUNCTION: No objective measurements taken this session. Please refer to patient assessment for tolerance to today's treatment TREATMENT: Therapeutic Exercise: 1: Piriformis stretching 2x30 2: supine ITB stretching 2x30 4: hamstring stretch 2x30 5: posterior pelvic tilt with march 2x10 6: supine hip abduction 2x10 pink T band 7: supine hip adduction 2x10 x5 hold 8: supine SLR 2x10 B 9: 6 in step through with R LLE 2x10 10: 6 in lateral step ups 2x10 11: multihip hip extension 40# 2x10 B 12: shuttle press Bilateral 50# 2x15 13: shuttle press SL 2x10 25# 15: deadbugs 2x10 16: bird dogs 2x10 17: pink theraband side steps 25 feet Skilled Intervention: Patient was educated in proper exercise technique and purpose for exercises. Skilled judgment was used in selection of appropriate interventions. Patient education as noted. Billing Therapeutic Exercise Treatment Minutes: 51 Skilled Treatment Time Minutes (timed and untimed codes): 51 Total Session Time (minutes): 51 Session Start Time : 0754 Session Stop Time : 0845 Anam Zavaleta PT, DPT [facility] 02-17-2025 Note HNO ID: [id number] Author: ANAM ZAVALETA PT, DPT Service: ? Author Type: Physical Therapist Type: Progress Notes Filed: 02/17/2025 09:28 Note Text: Episode Visit Count: 2 Therapist That Will Accept/Oversee The Plan Of Care: Anam Zavaleta Start of Care Date: 01/10/25 Onset Date: 08/12/20 Patient Identified by Name and Date of : Yes REHABILITATION AND SPORTS THERAPY PHYSICAL THERAPY PROGRESS REPORT PLAN OF CARE UPDATE: Assessment: Dorothy De La Cruz demonstrates no improvement in standing and walking. The patient has progressed toward goals. Patient continues to present with impairments in range of motion and strength that interfere with standing, walking . Current prognosis is Good due to: good overall health status, current objective clinical presentation, good support system/ coping skills, Prognosis may be limited due to chronic nature of impairments . Patient has demos no improvement with skilled PT since she has just received insurance approval. The patient will benefit from continued skilled therapy services to meet the updated goals for this plan of care as noted below. Goals for Episode of Care: established 01/10/25 02/16/25 Patient reported outcome of physical function will increase T-score by a minimum 5 points (prog) Patient will decrease pain to 2/10 with functional activities to allow patient to improve ambulation. (Prog) Restore pain-free lumbar flexion ROM to allow for improved tolerance to ADL's (prog) Stand / Walk 20 min without pain/symptoms. (Prog) Sleep through night without pain/symptoms. (Prog) Sit 30 minutes without pain/symptoms to allow for improved tolerance to driving (prog) Patient will increase strength of BLE to 4+/5 to allow for improve ability to complete ADLs. (Prog) Patient will increase flexibility of Bilateral hamstrings to 25 degrees to improve mechanics. (Prog) Perform work tasks with decreased report of symptoms/pain in 6 weeks. (Prog) Patient Goals: reduce pain Time Frame for Goals and Treatment : 03/24/25 Planned Interventions, Frequency, and Duration: 2x/week, 5 weeks Total Number of Visits Planned: 12 Patient to be seen for Therapeutic exercise (14767), Neuromuscular re-education (81422), Manual therapy (06034), Therapeutic activities (81169), Self-skilled nursing management (30940), Gait Training (75991) PLAN FOR NEXT VISIT: BLE strength, nuetral core strengthening, lumbar mobility, limit extension motion SUBJECTIVE: Patient notes she had a virus for 2 weeks and had increased pain in the back . She notes she is still having pain after standing on the R hip for any prolonged period of time.. Functional Limitations: standing, walking Pain: Pain Pain Level: 0 Pain Location: Low Back/Lumbar Spine - Right, Buttocks - Right, Leg - Right Description: Aching PROMIS Scales 02/16/2025 01/09/2025 Higher is Better Phys Func - T Score 48 (within normal limits) Phys Func - Percentile 42 Self-Eff Symptom - T Score 57 (Average) 57 (Average) Self-Eff Symptom - Percentile 76 76 01/09/2025 Lower is Better Pain Interference - T Score 62 (moderate) Pain Interference - Percentile 12 T-Score and Percentile Interpretation T-scores: mean of general population = 50. 5 points is clinically meaningfully difference Percentiles provide an indication of how the patient's score ranks in relation to the general population. Higher percentile rankings indicate better function/quality of life. 50th percentile is the average of the general population and indicates half of respondents had a worse score. OBJECTIVE MEASURES WITH LEVEL OF FUNCTION: Lumbar Spine AROM Lumbar Flexion: Minimal limitation (finger tips to mid tibia) Lumbar Extension: Normal Lumbar R Side [place]: Normal Lumbar L Side [place]: Normal Lumbar R Side-Bend: Normal Lumbar L Side-Bend: Normal Lumbar R Rotation: Normal Lumbar L Rotation: Normal LE Flexibility Flexibility: Hamstring Flexibility, Quadriceps Flexibility R Hamstring Flexibility: 35 L Hamstring Flexibility: 35 LE Strength Trunk Strength: 4-/5 R Hip Extension: 4-/5 R Hip Flexion (L2): 4/5 R Hip ABduction: 4+/5 R Hip Internal Rotation: 4/5 R Hip External Rotation: 4/5 R Knee Extension (L3): 4/5 R Knee Flexion: 4/5 L Hip Extension: 4-/5 L Hip Flexion (L2): 4+/5 L Hip Internal Rotation: 4/5 L Hip External Rotation: 4/5 L Knee Extension (L3): 5/5 L Knee Flexion: 5/5 TREATMENT: Therapeutic Exercise: 1: Piriformis stretching 2x30 2: supine ITB stretching 2x30 3: Posterior pelvic tilt 10x5 4: hamstring stretch 2x30 5: *posterior pelvic tilt with july 2x10 6: *supine hip abduction 2x10 7: supine hip adduction 2x10 x5 hold 8: supine SLR 2x10 B 9: 6 in step through with R LLE 2x10 10: 6 in lateral step ups 2x10 11: multihip hip extension 40# 2x10 B 12: shuttle press Bilateral 50# 2x15 13: shuttle press SL 2x10 25# 14: reassessment of goals and discuss (more content not included)... [facility] 01-10-2025 History of Presen t illness Narrative Program_ID:[id number] Access Code: [email or web address] URL: [email or web address] Date: 01-10-2025 Prepared By: Anam Zavaleta Program Notes Exercises - Supine March with Posterior Pelvic Tilt - 1 x daily - 7 x weekly - 3 sets - 10 reps - Supine Piriformis Stretch with Foot on Ground - 1 x daily - 7 x weekly - 3 sets - 10 reps - Supine Hamstring Stretch with Strap - 1 x daily - 7 x weekly - 3 sets - 10 reps - Supine ITB Stretch with Strap - 1 x daily - 7 x weekly - 3 sets - 10 reps Images from the original note were not included. Episode Visit Count: 1 Therapist That Will Accept/Oversee The Plan Of Care: Anam Zavaleta Start of Care Date: 01/10/25 Onset Date: 01/11/20 Patient Identified by Name and Date of : Yes REHABILITATION AND SPORTS THERAPY PHYSICAL THERAPY EVALUATION PLAN OF CARE: Assessment: Dorothy De La Cruz presents with chief complaint of low back, right hip and RLE numbness that interferes with standing, walking . The patient presents with impairments in ADL's, gait, range of motion, and strength. PROMIS (Patient-Reported Outcomes Measurement Information System) scores were reviewed and identified as a rehabilitation concern. Prognosis for therapy is Good due to: good overall health status, current objective clinical presentation, good support system/ coping skills, Prognosis may be limited due to chronic nature of impairments . Patient demos increased tightness and tenderness along RLE ITB band. She demos core weakness. Slight decreased strength on RLE compared to LLE. The patient will benefit from skilled therapy services to meet the goals established for this plan of care as noted below. Classification Pain Mechanism Classification: Nociceptive Low Back Pain Classification: Functional Optimization Goals for Episode of Care: established 01/10/25 Patient reported outcome of physical function will increase T-score by a minimum 5 points Patient will decrease pain to 2/10 with functional activities to allow patient to improve ambulation. Restore pain-free lumbar flexion ROM to allow for improved tolerance to ADL's Stand / Walk 20 min without pain/symptoms. Sleep through night without pain/symptoms. Sit 30 minutes without pain/symptoms to allow for improved tolerance to driving Patient will increase strength of BLE to 4+/5 to allow for improve ability to complete ADLs. Patient will increase flexibility of Bilateral hamstrings to 25 degrees to improve mechanics. Perform work tasks with decreased report of symptoms/pain in 6 weeks. Patient Goals: reduce pain Time Frame for Goals and Treatment : 02/21/25 Planned Interventions, Frequency, and Duration: Current Frequency: 2x/week Duration: 6 weeks Total Number of Visits Planned: 12 Planned Treatment Interventions: Therapeutic exercise (63748), Neuromuscular re-education (26935), Manual therapy (25615), Therapeutic activities (79382), Self-skilled nursing management (22487), Gait Training (26049) PLAN FOR NEXT VISIT: BLE strength, nuetral core strengthening, lumbar mobility, limit extension motion Patient demonstrates good understanding of plan of care and treatment. The above goals and plan of care were discussed and agreed upon by patient/family. SUBJECTIVE: Patient notes she has been having trouble with her right hip and leg for years. She notes pain has continued to increase. She went to [facility] and they told her it was her back. She notes had X-rays showed spondylolisthesis L5-S1. She notes has had injections in the right hip for trochantic bursitis which helped but her RLE would still go numb. Patient Goals: reduce pain Functional Limitations: standing, walking Prior Level of Function: Independent without limitations Relevant History Past Relevant Medical Conditions: Hyperlipemia Past Relevant Surgical Conditions: (hysterectomy, 2 C sections) Employment: [employer]: See Comment [employer] Occupation: surgery technician Intake Information: Prescription present Previous Treatment: Steroids , NSAIDs Falls Interview: No positive findings with falls interview Red Flags Vertebral Fracture Red Flags: Female Vertebral Fracture Clinical Reasoning: No identified risk factors Abdominal Aortic Aneurysm Clinical Reasoning: No identified risk factors. Cancer Clinical Reasoning: No identified risk factors. Infection Clinical Reasoning: No identified risk factors. Cauda Equina Syndrome Clinical Reasoning: No identified risk factors. Red Flags - Cervical Cancer Clinical Reasoning: No identified risk factors. Infection Clinical Reasoning: No identified risk factors. Spine History Symptoms Location at Onset: Back, Buttock, Thigh Symptoms Since Onset: Improving Pain: Pain Pain Level: 0 Pain Location: Low Back/Lumbar Spine - Right, Buttocks - Right, Leg - Right Description: Aching Frequency: With movement, Standing Detailed Pain Score: Yes Worst Pain Level: 6 Post Treatment Pain Post Treatment Pain Level: No Change Post Treatment Pain Location: Low Back/Lumbar Spine - Right, Hip - Right PROMIS Scales 01/09/2025 Higher is Better Self-Eff Symptom - T Score 57 (Average) Self-Eff Symptom - Percentile 76 01/09/2025 Lower is Better Pain Interference - T Score 62 (moderate) Pain Interference - Percentile 12 T-Score and Percentile Interpretation T-scores: mean of general population = 50. 5 points is clinically meaningfully difference Percentiles provide an indication of how the patient's score ranks in relation to the general population. Higher percentile rankings indicate better function/quality of life. 50th percentile is the average of the general population and indicates half of respondents had a worse score. OBJECTIVE MEASURES WITH LEVEL OF FUNCTION: Posture / Alignment Posture: Forward head, Rounded shoulders Spine Observations Spine Observations: Normal pelvic alignment Lumbar Spine AROM Lumbar Flexion: Minimal limitation (finger tips to mid tibia) Lumbar Extension: Normal Lumbar R Side [place]: Normal Lumbar L Side [place]: Normal Lumbar R Side-Bend: Normal Lumbar L Side-Bend: Normal Lumbar R Rotation: Normal Lumbar L Rotation: Normal LE Flexibility Flexibility: Hamstring Flexibility, Quadriceps Flexibility R Hamstring Flexibility: 35 L Hamstring Flexibility: 35 LE Strength Trunk Strength: 4-/5 R Hip Extension: 4-/5 R Hip Flexion (L2): 4/5 R Hip ABduction: 4+/5 R Hip Internal Rotation: 4/5 R Hip External Rotation: 4/5 R Knee Extension (L3): 4/5 R Knee Flexion: 4/5 L Hip Extension: 4-/5 L Hip Flexion (L2): 4+/5 L Hip Internal Rotation: 4/5 L Hip External Rotation: 4/5 L Knee Extension (L3): 5/5 L Knee Flexion: 5/5 Special Tests - Hip and Spine Hip and Spine Special Tests: SLR Test, Slump Test, Extension with Rotation Test, [place]FF[place] Test, FADDIR Test Slump Test: Right Negative, Left Negative Extension with Rotation Test: Left Negative, Right Negative [place] Test: Right Negative, Left Negative FADDIR Test: Right Negative, Left Negative Education: Education Learning Preferences: Demonstration, Explanation, Performance, Printed Materials Barriers: None Learning/educational needs: Safety, Health promotion, Plan of Care, Home exercise program, Posture Education Provided: Yes, see treatment interventions for education provided Education Provided To: Patient Education Mode/Type: Demonstration, Explanation/Discussion, Literature/Printed Materials, Performance Response to Education/Teach Back: States/Identifies, Return Demonstration TREATMENT: PT Treatment Interventions: Therapeutic Exercise, Self-Shelter Management Evaluation Therapeutic Exercise: 1: *Piriformis stretching 2x30 2: *supine ITB stretching 2x30 3: *Posterior pelvic tilt 2x30 4: *hamstring stretch 2x30 Skilled Intervention: Patient was educated in proper exercise technique and purpose for exercises. Reviewed and educated patient on additions/changes for home exercise program as above (*). Skilled judgment was used in selection of appropriate interventions. Patient education as noted. Self-Shelter Management: 1: Patient educated on examination findings, POC, Skilled Intervention: Skilled judgment in the selection of proper modification for activity of daily living/home management based on clinical presentation, deficits, and needs. Activity progression based on professional judgement. Billing * Evaluation Low Complexity: 1 Unit Therapeutic Exercise Treatment Minutes: 10 Self-Care/Home Management Treatment Minutes: 5 Skilled Treatment Time Minutes (timed and untimed codes): 39 Total Session Time (minutes): 39 Session Start Time : 926 Session Stop Time : 1005 Anam Zavaleta PT, DPT documented in this encounter [facility] 01-10-2025 Note HNO ID: [id number] Author: ANAM ZAVALETA PT, DPT Service: ? Author Type: Physical Therapist Type: Progress Notes Filed: 01/10/2025 10:10 Note Text: Episode Visit Count: 1 Therapist That Will Accept/Oversee The Plan Of Care: Anam Zavaleta Start of Care Date: 01/10/25 Onset Date: 01/11/20 Patient Identified by Name and Date of : Yes REHABILITATION AND SPORTS THERAPY PHYSICAL THERAPY EVALUATION PLAN OF CARE: Assessment: Dorothy De La Cruz presents with chief complaint of low back, right hip and RLE numbness that interferes with standing, walking . The patient presents with impairments in ADL's, gait, range of motion, and strength. PROMIS? (Patient-Reported Outcomes Measurement Information System) scores were reviewed and identified as a rehabilitation concern. Prognosis for therapy is Good due to: good overall health status, current objective clinical presentation, good support system/ coping skills, Prognosis may be limited due to chronic nature of impairments . Patient demos increased tightness and tenderness along RLE ITB band. She demos core weakness. Slight decreased strength on RLE compared to LLE. The patient will benefit from skilled therapy services to meet the goals established for this plan of care as noted below. Classification Pain Mechanism Classification: Nociceptive Low Back Pain Classification: Functional Optimization Goals for Episode of Care: established 01/10/25 Patient reported outcome of physical function will increase T-score by a minimum 5 points Patient will decrease pain to 2/10 with functional activities to allow patient to improve ambulation. Restore pain-free lumbar flexion ROM to allow for improved tolerance to ADL's Stand / Walk 20 min without pain/symptoms. Sleep through night without pain/symptoms. Sit 30 minutes without pain/symptoms to allow for improved tolerance to driving Patient will increase strength of BLE to 4+/5 to allow for improve ability to complete ADLs. Patient will increase flexibility of Bilateral hamstrings to 25 degrees to improve mechanics. Perform work tasks with decreased report of symptoms/pain in 6 weeks. Patient Goals: reduce pain Time Frame for Goals and Treatment : 02/21/25 Planned Interventions, Frequency, and Duration: Current Frequency: 2x/week Duration: 6 weeks Total Number of Visits Planned: 12 Planned Treatment Interventions: Therapeutic exercise (80949), Neuromuscular re-education (15864), Manual therapy (99727), Therapeutic activities (65976), Self-skilled nursing management (44465), Gait Training (91293) PLAN FOR NEXT VISIT: BLE strength, nuetral core strengthening, lumbar mobility, limit extension motion Patient demonstrates good understanding of plan of care and treatment. The above goals and plan of care were discussed and agreed upon by patient/family. SUBJECTIVE: Patient notes she has been having trouble with her right hip and leg for years. She notes pain has continued to increase. She went to [facility] and they told her it was her back. She notes had X-rays showed spondylolisthesis L5-S1. She notes has had injections in the right hip for trochantic bursitis which helped but her RLE would still go numb. Patient Goals: reduce pain Functional Limitations: standing, walking Prior Level of Function: Independent without limitations Relevant History Past Relevant Medical Conditions: Hyperlipemia Past Relevant Surgical Conditions: (hysterectomy, 2 C sections) Employment: [employer]: See Comment [employer] Occupation: surgery technician Intake Information: Prescription present Previous Treatment: Steroids , NSAIDs Falls Interview: No positive findings with falls interview Red Flags Vertebral Fracture Red Flags: Female Vertebral Fracture Clinical Reasoning: No identified risk factors Abdominal Aortic Aneurysm Clinical Reasoning: No identified risk factors. Cancer Clinical Reasoning: No identified risk factors. Infection Clinical Reasoning: No identified risk factors. Cauda Equina Syndrome Clinical Reasoning: No identified risk factors. Red Flags - Cervical Cancer Clinical Reasoning: No identified risk factors. Infection Clinical Reasoning: No identified risk factors. Spine History Symptoms Location at Onset: Back, Buttock, Thigh Symptoms Since Onset: Improving Pain: Pain Pain Level: 0 Pain Location: Low Back/Lumbar Spine - Right, Buttocks - Right, Leg - Right Description: Aching Frequency: With movement, Standing Detailed Pain Score: Yes Worst Pain Level: 6 Post Treatment Pain Post Treatment Pain Level: No Change Post Treatment Pain Location: Low Back/Lumbar Spine - Right, Hip - Right PROMIS Scales 01/09/2025 Higher is Better Self-Eff Symptom - T Score 57 (Average) Self-Eff Symptom - Percentile 76 01/09/2025 Lower is Better Pain Interference - T Score 62 (moderate) Pain Interference - Percentile 12 T-Score and Percentile Interpretation T-scores: mean of (more content not included)... [facility] 09-03-2023 Miscellaneous Notes This nurse spoke with patient and she states that she saw her PCP the next day and has already been on two doses of ATB. Patient voices no other concerns at this time. Roxana Vazquez LPN Positive PCR for Strep. Amoxil sent in to the pharmacy. documented in this encounter [facility] 09-01-2023 Instructions Constantin Balbuena Jr., APRN.CNP - 09/01/2023 1:22 PM EDT There is no specific treatment for bronchitis. Symptoms can last up to 6 weeks. However, they should be decreasing in intensity during that time It is recommended that you drink plenty of noncaffeinated fluids (caffeine causes you to excrete more fluids). Consider using nonsteroidal anti-inflammatory medication such as Motrin/ibuprofen, naproxen, aspirin, or acetaminophen if you are not prescribe these medications and are not allergic to them. Do not take aspirin/naproxen/Motrin or other NSAID (nonsteroidal antiinflammatory medications) when taking prednisone, medrol, or other oral steroids. Use a humidifier especially at night to help your symptoms. If you do not have a humidifier you can turn your shower to hot and steam up bathroom while you inhale the humidified air. Bronchitis is a viral infection and antibiotics are not effective for them. documented in this encounter [facility] 09-01-2023 History of Presen t illness Narrative Radiology Service Progress Note PATIENT NAME: Dorothy De La Cruz DATE OF SERVICE: September 01, 2023 TIME: 2:00 PM PATIENT IDENTITY VERIFICATION COMPLETED USING TWO (2) IDENTIFIERS: Name and Date of confirmed by patient verbally. FALL SCREENING: Has the patient had 2 falls in the last year or 1 fall with injury or currently using an Ambulatory Assistive Device (Walker, Cane, Wheelchair, Crutches, etc.)? No PATIENT GENDER DATA: Female. status: : No status: NO. PATIENT RELEVANT IMPLANT DATA REVIEWED: Not Applicable PATIENT PRESENTS WITH AN IMPLANTABLE OR ATTACHED LICENSED CERTIFIED ORTHOTIST: No RADIOLOGY DEPARTMENT: General X-ray: Exam(s) Completed: Chest X-Ray PERIPHERAL IV DATA: Not applicable SIGNED BY: RT Salo(R) September 01, 2023 2:00 PM documented in this encounter [facility] 09-01-2023 History of Presen t illness Narrative Dorothy De La Cruz is a 58 year old female who presents with Cough (Sore throat both since august 05 been on ATB and a steroid pack) 58-year-old female presents today with a complaint of sore throat, cough, fever, occasional shortness of breath. Patient states symptoms began on August 05 and have continued. Patient has had an antibiotic from a telehealth and is unsure the exact name but feels it may have been cephalexin. Patient concerned she has strep throat. Took 2 Tylenol prior to arriving here to the urgent care for her fever. The history is provided by the patient. Cough Associated symptoms include sore throat, shortness of breath and wheezing. Pertinent negatives include no chest pain. PAST MEDICAL HISTORY Diagnosis Date Pernicious anemia ACTIVE PROBLEM LIST Abdominal Pain, Epigastric Benign Neoplasm of Colon Sebaceous Cyst FATIGUE CHRONIC, SYNDROME ANEMIA PERNICIOUS Current Outpatient Medications Medication Sig Dispense Refill rosuvastatin (CRESTOR) 40 mg tablet once daily. ramipril (ALTACE) 10 mg capsule once daily. Fenofibrate (LOFIBRA) 54 mg tablet once daily. predniSONE (DELTASONE) 5 mg tablet TAKE 4 TABLETS BY MOUTH ONCE DAILY FOR 4 DAYS AND 2 ONCE DAILY FOR 4 DAYS AND 1 ONCE DAILY FOR 4 DAYS No current facility-administered medications for this visit. Social History Tobacco Use Smoking status: Never Smokeless tobacco: Never Vaping Use Vaping Use: Never used Substance Use Topics Alcohol use: Yes Comment: rarely Drug use: No Alcohol Use: Yes (rarely) Tobacco Use: Never FAMILY HISTORY Problem Relation Age of Onset Heart Paternal Grandfather Hypertension Paternal Grandfather Diabetes Maternal Grandfather Hypertension Maternal Grandfather Stroke Paternal Grandmother Heart Paternal Grandmother Review of Systems Constitutional: Positive for fever. HENT: Positive for sore throat. Respiratory: Positive for cough, shortness of breath and wheezing. Cardiovascular: Negative for chest pain. Skin: Negative. BP 143/93 Pulse 110 Temp 101 Resp 20 SpO2 98% Physical Exam VITALS: Blood pressure slightly elevated, tachycardia, and fever. Normal respiratory rate and pulse ox. CONSTITUTIONAL: patient is alert and orientated by 3, no acute distress HEAD: Head is atraumatic normocephalic. EYES: No bilateral conjunctivitis EARS/NOSE/THROAT: No turbinate edema or nasal drainage. Throat is irritated with no tonsillar enlargement or exudate . NECK: No anterior cervical lyphadenopathy PULMONARY: No labored breathing. Patient has expiratory rales. CARDIOVASCUOLAR: Tachycardia with regular rhythm. no murmurs, rubs, or gallops. ABDOMEN: Soft nontender nondistended. MUSCULOSKELETAL: Moves all extremities without difficulty. No edema noted SKIN: Hot and dry no clubbing cyanosis or edema. PSYCHIATRY: Cooperative. Normal mood and affect. Rapid strep test performed: Appa strep test was negative, awaiting PCR strep test results Chest x-ray: No acute process identified. Already axilla wet is normal size. Waiting radiologist impression ASSESSMENT/PLAN: 1. Rales - ICD9: 786.7, ICD10: R09.89 (primary diagnosis) - XR CHEST 2V FRONTAL/LAT - ALBUTEROL SULFATE HFA 90 MCG/ACTUATION AEROSOL INHALER 2. Sore throat - ICD9: 462, ICD10: J02.9 - RAPID GROUP A STREP RFLX TO PCR - GROUP A STREPTOCOCCUS BY PCR - PREDNISONE 20 MG TABLET 3. Acute cough - ICD9: 786.2, ICD10: R05.1 - BENZONATATE 100 MG CAPSULE Patient presented today with a primary complaint of a sore throat, cough, fever. On examination patient's heart rate was tachycardic with regular rhythm, patient had a fever and blood pressure was slightly elevated. Skin was hot and dry to touch. Throat was irritated with no tonsillar exudate or erythema noted. Patient had expiratory rales in her lung maier. A rapid strep test was performed that was negative, awaiting PCR strep test results a chest x-ray was performed and no abnormalities noted awaiting radiologist impression. At this time it is my opinion patient is suffering from a upper respiratory viral infection likely bronchitis. I prescribed an albuterol inhaler, Tessalon Perles for the cough, and prednisone. Patient informed she cannot take NSAIDs while she is on the prednisone. Patient has an appointment with her PCP tomorrow at 4 PM. I recommended she keep that appointment for further evaluation of her symptoms. Constantin Balbuena Jr, APRN.SARAH documented in this encounter [facility] 12-11-2021 Evaluation + Plan note Future Scheduled TestsThyroid Stimulating Hormone 7/13/22A1C Hemoglobin 12/11/21Lipid Profile 12/11/21Vitamin D Level 12/11/21Complete Metabolic Panel 12/11/21MRI Hip w/o Contrast Right 04/16/22 [facility] Evaluation + Plan note Future Appointments Appointment Date:03/14/2021 01:30:00 PM Scheduled Provider:DIANDRA GONZALES MD Location:[facility] Appointment Type:[facility] Future Scheduled TestsThyroid Stimulating Hormone 10/05/20Free T4 10/05/20A1C Hemoglobin 10/05/20Free T3 10/05/20Lipid Profile 10/05/20Complete Metabolic Panel 10/05/20 [facility] Evaluation + Plan note Future Appointments Appointment Date:06/13/2021 01:30:00 PM Scheduled Provider:DIANDRA GONZALES MD Location:[facility] Appointment Type:[facility] Future Scheduled TestsThyroid Stimulating Hormone 06/14/21Free T4 06/14/21Lipid Profile 06/14/21Complete Metabolic Panel 06/14/21 [facility] Evaluation note No assessment inform ation available [facility] Work Phone: Evaluation note Diagnosis Rales- Primary Abnormal chest sounds Sore throat Acute pharyngitis Acute cough [facility] Diagnosis Rales Abnormal chest sounds [facility] Diagnosis Lumbar radiculopathy- Primary Thoracic or lumbosacral neuritis or radiculitis, unspecified Spondylolisthesis of lumbosacral region Acquired spondylolisthesis Chronic right-sided low back pain with right-sided sciatica documented in this encounter [facility] course Narrative No data available for this section [facility] Discharge instructions No data available for this section [facility] Progress note No data available for this section [facility] Chief Complaint and Reason for Visit Chief Complaint SCREENING Chief Complaint SCREENING Summary Purpose Family History No Family History Records FoundNo Family History Records FoundNo Family History Records Found Advance Directives No Advanced Directives Records FoundNo Advanced Directives Records FoundNo Advanced Directives Records Found Additional Source Comments Goals (unrecognized section and content) Goals may be documented in a n alternate section INFORMATION SOURCE (unrecogn ized section and content) DATE CREATED AUTHOR 11/08/2022 [facility] ([place]) DATE CREATED AUTHOR AUTHOR'S ORGANIZ ATION 05/29/2024 [facility] DATE CREATED AUTHOR AUTHOR'S ORGANIZ ATION 03/14/2025 [facility] nter Patient Care team informatio n (unrecognized section and content) Team Status: Active Member Role Status Dates Dr. Bakari Carrero MD Family Provider Active Dr. Bakari Carrero MD Primary Care Provider Active Team Status: Inactive Member Role Status Dates Dr. Bakari Carrero MD Primary Care Provider Active Diann Del Cid NP-C Attending Provider, Referring Prov ider Active Team Status: Active Member Role Status Dates Dr. Bakari Carrero MD Family Provider Active Diann Del Cid NP-Abdias Primary Care Provider Active Team Status: Inactive Member Role Status Dates Diann Del Cid NP-Abdias Primary Care Provide r, Attending Provider, Referring Provider Active Team Status: Inactive Member Role Status Dates Diann Del Cid NP-Abdias Primary Care Provider, Attending P nestor Active Source Comments (unrecognize d section and content) In the event this informatio n is protected by the Federal Confidentiality of Alcohol and Drug Abuse Patient Records regulations: The Federal rules restrict any use of the information to criminally investigate or prosecute any alcohol or drug abuse patient.[facility] the event this information is protected by the Federal Confidentiality of Alcohol and Drug Abuse Patient Records regulations: The Federal rules restrict any use of the information to criminally investigate or prosecute any alcohol or drug abuse patient.[facility] the event this information is protected by the Federal Confidentiality of Alcohol and Drug Abuse Patient Records regulations: The Federal rules restrict any use of the information to criminally investigate or prosecute any alcohol or drug abuse patient.[facility] the event this information is protected by the Federal Confidentiality of Alcohol and Drug Abuse Patient Records regulations: The Federal rules restrict any use of the information to criminally investigate or prosecute any alcohol or drug abuse patient.[facility] Reason for Visit (unrecogniz ed section and content) Reason Comments Cough Sore throat both sin ce august 05 been on ATB and a steroid pack Reason Comments Results Orders New prescriiption Reason Comments PT Eval Specialty Diagnoses / Procedures Referred By Contac t Referred To Contact Physical Therapy / PHYSICAL THERAPY Diagnoses 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 NEW RS PT SPINE Easton Valencia PA-C [address] [place] [address] Phone: tel: fax: Zavaleta, Anam, PT, DPT Referral ID Status Reason Start Date Expiration Date Visits Re quested Visits Authorized [id number] Closed 06/01/2024 05/31/2025 1 FOR RECORDS PERTAINING TO PATIENTS WHO ARE OR HAVE BEEN ENROLLED IN A CHEMICAL DEPENDENCY/SUBSTANCEABUSE PROGRAM, SOME INFORMATION MAY BE OMITTED. This clinical summary was aggregated from multiple sources. Caution should be exercised in using it in the provision of clinical care. This summary normalizes information from multiple sources, and as a consequence, information in this document may materially change the coding, format and clinical context of patient data. In addition, data may be omitted in some cases. CLINICAL DECISIONS SHOULD BE BASED ON THE PRIMARY CLINICAL RECORDS. [facility] [employer] [facility]. provides no warranty or guarantee of the accuracy or completeness of information in this document.
== END | disposition home or self-care (01) ==
LOC: OPBI 08:07
PROVIDERS: PCP Nurse Practitioner Family; Referring Provider Nurse Practitioner Family; Visit Provider Nurse Practitioner Family
DX: Z12.31 Encounter for screening mammogram for malignant neoplasm of breast (principal)
CPT/HCPCS: 77063; 77067